=== PATIENT | male | born 1945 | race Caucasian/White ===

== ENCOUNTER 2017-08-27 15:35 | Inpatient (IN) | payer MEDICARE, OTHER ==
[~2017-08-27] VITALS: Ht 177.8 cm; Wt 61.7 kg
[~2017-08-27 15:35] MED LIST: AMLODIPINE BESYL5 MG ORAL; ASPIR 8181 MG ORAL; BACITRACIN1 EACH TOPIC; BUDESONIDE0.5 GM MC; COLACE100 MG ORAL; DEPAKOTE250 MG PO; DETROL2 MG ORAL; DUONEB 0.5-3(2.53 ML HHN; FINASTERIDE5 MG ORAL; FLOMAX0.4 MG ORAL; GENTAK5 ML BOTH EYES; KLONOPIN1 MG ORAL; MIRALAX17 G2 ORAL; OMEPRAZOLE20 M3 ORAL; OMEPRAZOLE40 M1 ORAL; PROTONIX40 MG ORAL; RISPERDAL1 MG PO; RISPERDAL2 MG ORAL; TAMSULOSIN HCL0.4 MG ORAL; TYLENOL WITH C1 EAC2 ORAL; ZOLPIDEM TARTRAT5 MG ORAL; ZYPREXA10 MG ORAL
[2017-08-27 15:40] VITALS: BP 157/71
[2017-08-27] MEDS ORDERED: VENTOLIN HFA18 GM INH ×2 (15:42→18:37)
[2017-08-27] MEDS ORDERED: KLONOPIN1 MG ORAL ×2 (15:42→18:37)
[2017-08-27] MEDS ORDERED: NEXIUM40 M2 ORAL (15:47)
[2017-08-27] MEDS ORDERED: BENZTROPINE ME0.5 MG PO ×2 (15:47→18:48)
[2017-08-27] MEDS ORDERED: ATROVENT HFA12.9 GM IH ×2 (15:47→18:48)
[2017-08-27] MEDS ORDERED: TEMAZEPAM30 MG ORAL (15:47)
[2017-08-27] MEDS ORDERED: LOXAPINE50 MG PO ×2 (15:47→18:48)
[2017-08-27] MEDS ORDERED: QUETIAPINE FUM400 MG ORAL (15:47)
[2017-08-27] MEDS ORDERED: ZETIA10 MG ORAL ×2 (15:50→18:43)
[2017-08-27] MEDS ORDERED: CHLORPROMAZINE25 MG PO ×2 (15:50→18:43)
[2017-08-27] MEDS ORDERED: AMLODIPINE BESYL5 MG ORAL (15:50)
[2017-08-27] MEDS ORDERED: Albuterol ud Inhalation HHN ONE (16:00)
[2017-08-27] MEDS ORDERED: Ipratropium 0.02% Inh Soln 2.5ml UD HHN ONE (16:00)
[2017-08-27] MEDS ORDERED: Azithromycin 500 MG in NS 275 ML IV ONE (16:00)
[2017-08-27] MEDS ORDERED: Solu-MEDROL 125mg Inj IVP ONE (16:00)
--- NOTE | 2017-08-27 16:11 | Emergency Room Report ---
History of Present Illness General Chief Complaint: Generalized Weakness Source: Patient, Medical Record, PMD Present Illness HPI 72-year-old male presents from nursing facility with weakness for one week. Patient feels like low energy. Denies any focal upper or lower extremity reduced strength. Denies chest pain, shortness of breath, abdominal pain. Has known history of "bad COPD" per primary care doctor. Patient states she is not on oxygen at facility. Denies fevers, chills. States he always has a cough, always smoking. Per PMD has history of cancer. Frequent urinary tract infections. Allergies: Coded Allergies: FISH LIVER OIL (Verified Allergy, Mild, 09/04/08) Patient History Past Medical History: other - see HPI Past Surgical History: none Social History: Reports: smoking Immunizations: UTD Reviewed Nursing Documentation: PMH: Agreed; PSxH: Agreed Nursing Documentation-PMH Hx Cardiac Problems: No Hx COPD: Yes Hx Cancer: Yes Hx Gastrointestinal Problems: No Hx Neurological Problems: No Review of Systems All Other Systems: negative except mentioned in HPI Physical Exam Vital Signs Date Time Temp Pulse Resp B/P (MAP) Pulse Ox O2 Delivery O2 Flow Rate FiO2 08/27/17 15:32 97.8 82 18 110/82 90 Nasal Cannula 2.0 97.9 Sp02 EP Interpretation: reviewed, normal General Appearance: normal inspection, well appearing, no apparent distress, alert, GCS 15, non-toxic Head: normocephalic, atraumatic Eyes: bilateral eye PERRL, bilateral eye EOMI ENT: normal ENT inspection, hearing grossly normal, normal pharynx, no angioedema, normal voice, TMs + canals normal, uvula midline, moist mucus membranes Neck: normal inspection, full range of motion, supple, thyroid normal, no meningismus, no bony tend Respiratory: normal inspection, normal breath sounds, no rhonchi, no respiratory distress, no retraction, no accessory muscle use, no wheezing, speaking full sentences, wheezing, expiration, inspiration Cardiovascular #1: regular rate, rhythm, no edema, no JVD, normal capillary refill Gastrointestinal: normal inspection, normal bowel sounds, non tender, soft, no mass, no peritonitis, non-distended, no guarding, no hernia, no pulsatile mass Genitourinary: no CVA tenderness Musculoskeletal: normal inspection, back normal, normal range of motion, no calf tenderness, pelvis stable, Tyrese's Sign negative Neurologic: normal inspection, alert, oriented x3, responsive, cognos architect III-XII nml as tested, motor strength/tone normal, cerebellar normal, normal gait, speech normal Psychiatric: normal inspection, judgement/insight normal, mood/affect normal, no suicidal/homicidal ideation, no delusions Skin: normal inspection, normal color, no rash Lymphatic: normal inspection, no adenopathy Medical Decision Making Diagnostic Impression: Primary Impression: Episode of generalized weakness Additional Impression: COPD exacerbation ER Course Vital signs stable, afebrile On exam patient having COPD exacerbation Was given nebs, steroids, empiric azithromycin for COPD exacerbation EKG shows sinus rhythm with PVCs however no metabolic abnormalities No leukocytosis to suggest patient also having pneumonia Feels better after treatment for COPD exacerbation Endorsed to Dr Epstein for admit at 550pm Med/surg bed EKG Diagnostic Results Rate: normal Rhythm: NSR ST Segments: no acute changes Other Impression Multiple PVCs Rhythm Strip Diag. Results EP Interpretation: yes Rate: 70 Rhythm: NSR, no PVC's, no ectopy Chest X-Ray Diagnostic Results Chest X-Ray Diagnostic Results : Chest X-Ray Ordered: Yes # of Views/Limited/Complete: 1 View Indication: Shortness of Breath EP Interpretation: Yes Interpretation: no consolidation, no effusion, no pneumothorax, no acute cardiopulmonary disease Impression: No acute disease Last Vital Signs Date Time Temp Pulse Resp B/P (MAP) Pulse Ox O2 Delivery O2 Flow Rate FiO2 08/27/17 16:05 71 20 96 Nasal Cannula 4.0 08/27/17 15:32 97.8 110/82 97.9 Status: improved Disposition: ADMITTED INPATIENT Condition: Serious ALLI NUR M.D. Aug 27, 2017 16:11
[2017-08-27 17:01] LABS: BASOPHILS % (AUTO) 3.1 % (0.0-2.0); EOSINOPHILS % (AUTO) 9.4 % (0.0-3.0); HEMATOCRIT 38.6 % (42.0-52.0); LYMPHOCYTES % (AUTO) 25.5 % (20.0-45.0); MEAN CORPUSCULAR VOLUME 89 FL (80-99); MONOCYTES % (AUTO) 7.7 % (1.0-10.0); NEUTROPHILS % (AUTO) 54.3 % (45.0-75.0); PLATELET COUNT 401 K/UL (150-450); RED BLOOD COUNT 4.35 M/UL (4.70-6.10); RED CELL DISTRIBUTION WIDTH 13.6 % (11.6-14.8); WHITE BLOOD COUNT 8.2 K/UL (4.8-10.8)
--- NOTE | 2017-08-27 17:08 | Diagnostic Imaging Report ---
Indication: Shortness of breath Technique: One view of the chest Comparison: 01/15/2015 Findings: Inspiration is suboptimal. There is elevation of the right hemidiaphragm and right basilar atelectasis. There is equivocal mild interstitial congestion. The pleural spaces are grossly clear. Heart size is normal. 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 Right basilar atelectasis Equivocal mild interstitial congestive changes-correlate with clinical findings
[2017-08-27 17:12] LABS: ANION GAP 6 mmol/L (5-15); BLOOD UREA NITROGEN 18 mg/dL (7-18); CALCIUM 9.1 MG/DL (8.5-10.1); CARBON DIOXIDE 30 MMOL/L (21-32); CHLORIDE 108 MMOL/L (98-107); CREATININE 1.1 MG/DL (0.55-1.30); POTASSIUM 4.3 MMOL/L (3.5-5.1); SODIUM 144 MMOL/L (136-145)
[2017-08-27 17:26] LABS: ALANINE AMINOTRANSFERASE 20 U/L (12-78); ALBUMIN 2.9 G/DL (3.4-5.0); ALBUMIN/GLOBULIN RATIO 0.9 (1.0-2.7); ALKALINE PHOSPHATASE 74 U/L (46-116); ASPARTATE AMINO TRANSFERASE 11 U/L (15-37); BILIRUBIN,TOTAL 0.3 MG/DL (0.2-1.0); CKMB 1.7 NG/ML (0.0-3.6); CREATINE KINASE 64 U/L (26-308)
[2017-08-27] MEDS ORDERED: TEMAZEPAM15 MG ORAL (18:39)
[2017-08-27] MEDS ORDERED: SEROQUEL XR300 MG ORAL (18:39)
[2017-08-27] MEDS ORDERED: NEXIUM40 MG ORAL (18:43)
[2017-08-27 19:16] LABS: APPEARANCE,URINE CLEAR; BILIRUBIN, URINE NEGATIVE (NEGATIVE); GLUCOSE, URINE (UA) NEGATIVE (NEGATIVE); KETONES,URINE NEGATIVE (NEGATIVE); LEUKOCYTE ESTERASE ,URINE 1+ (NEGATIVE); NITRITE,URINE NEGATIVE (NEGATIVE); PH,URINE 6.5 (4.5-8.0); PROTEIN,URINE NEGATIVE (NEGATIVE); UROBILINOGEN,URINE NORMAL MG/DL (0.0-1.0)
[2017-08-27 19:31] LABS: COLOR,URINE YELLOW
[2017-08-27 19:43] VITALS: BP 125/68
[2017-08-27 20:20] VITALS: BP 122/75
[2017-08-27] MEDS: Albuterol ud Inhalation HHN PRN (23:27)
[2017-08-27] MEDS: Ipratropium 0.02% Inh Soln 2.5ml UD HHN PRN (23:27)
[2017-08-28] VITALS: BP 135/75
[2017-08-28] MEDS: Albuterol ud Inhalation HHN PRN (03:45)
[2017-08-28] MEDS: Ipratropium 0.02% Inh Soln 2.5ml UD HHN PRN (03:45)
[2017-08-28 04:00] VITALS: BP 145/82
--- NOTE | 2017-08-28 04:30 | History and Physical Report ---
DATE OF ADMISSION: 08/27/2017 HISTORY OF PRESENT ILLNESS: The patient is admitted for COPD exacerbation as well as lower extremity weakness. The patient does have wheezing, shortness of breath, and cough. The patient is a heavy smoker. Denies fever or chills. Denies orthopnea. PAST MEDICAL HISTORY: Chronic obstructive pulmonary disease, hypertension, paranoid schizophrenia, anxiety, gastroesophageal reflux disease, constipation, renal and bladder cancer, BPH, paranoid schizophrenia, history of bradycardia, and hyperlipidemia. MEDICATIONS: Klonopin, Cogentin, Norvasc, Colace, Nexium, Zetia, finasteride, loxapine, and Flomax. ALLERGIES: Fish liver oil. SOCIAL HISTORY: The patient is a smoker. He lives in assisted living. Denies history of alcohol or illegal drugs. FAMILY HISTORY: Noncontributory. REVIEW OF SYSTEMS: HEENT: Denies headaches. RESPIRATORY: Reports shortness of breath and wheezing and coughing. CARDIOVASCULAR: Denies chest pain. Denies orthopnea. GASTROINTESTINAL: Denies nausea, vomiting, or diarrhea. EXTREMITIES: Does have some back pain, which is chronic. 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 He is very weak. PHYSICAL EXAMINATION: VITAL SIGNS: Temperature is 97.7, pulse 79, and blood pressure 124/68. HEENT: PERRLA. NECK: Supple. No deformity. CHEST: Bibasilar wheezing. CARDIOVASCULAR: Regular rate and rhythm. GASTROINTESTINAL: Soft, nontender, and nondistended. No organomegaly. Positive bowel sounds. EXTREMITIES: No edema. Reflexes are equal on both sides. He does have some weight loss. Moves all four extremities. DIAGNOSTIC DATA: Chest x-ray shows findings of compounds of chronic obstructive pulmonary disease. LABORATORY DATA: WBC of 8.2, hemoglobin 13, and platelets of 401,000. Sodium 144, potassium 4.3, chloride 108, BUN of 18, and creatinine of 1.1. Glucose of 108. ASSESSMENT: Chronic obstructive pulmonary disease exacerbation, lower extremity weakness, and bladder and renal cancer. PLAN: I have asked Dr. Lemons, Dr. Birmingham, and Dr. Matt Latham to see the patient for the renal and bladder cancer as well as for COPD exacerbation and management. Saida Cee M.D. DR: ANAYA JOB#: [id number] CC:
[2017-08-28 08:00] VITALS: BP 146/80
[2017-08-28 08:06] LABS: BASOPHILS % (AUTO) 0.6 % (0.0-2.0); EOSINOPHILS % (AUTO) 0.1 % (0.0-3.0); HEMATOCRIT 41.3 % (42.0-52.0); HEMOGLOBIN 13.8 G/DL (14.2-18.0); LYMPHOCYTES % (AUTO) 10.9 % (20.0-45.0); MEAN CORPUSCULAR VOLUME 90 FL (80-99); MONOCYTES % (AUTO) 4.6 % (1.0-10.0); NEUTROPHILS % (AUTO) 83.8 % (45.0-75.0); PLATELET COUNT 468 K/UL (150-450); RED BLOOD COUNT 4.59 M/UL (4.70-6.10); RED CELL DISTRIBUTION WIDTH 13.3 % (11.6-14.8); WHITE BLOOD COUNT 10.1 K/UL (4.8-10.8)
[2017-08-28 08:37] LABS: ALANINE AMINOTRANSFERASE 27 U/L (12-78); ALBUMIN 3.2 G/DL (3.4-5.0); ALBUMIN/GLOBULIN RATIO 0.8 (1.0-2.7); ALKALINE PHOSPHATASE 83 U/L (46-116); ANION GAP 10 mmol/L (5-15); ASPARTATE AMINO TRANSFERASE 12 U/L (15-37); BILIRUBIN,TOTAL 0.2 MG/DL (0.2-1.0); BLOOD UREA NITROGEN 22 mg/dL (7-18); CALCIUM 9.3 MG/DL (8.5-10.1); CARBON DIOXIDE 27 MMOL/L (21-32); CHLORIDE 105 MMOL/L (98-107); POTASSIUM 4.3 MMOL/L (3.5-5.1); SODIUM 142 MMOL/L (136-145)
[2017-08-28] MEDS: Tamsulosin 0.4mg cap ORAL SCH (08:45)
[2017-08-28] MEDS: Benztropine 1mg tab ORAL SCH ×2 (08:46→18:09)
[2017-08-28] MEDS: Docusate 100mg cap ORAL SCH ×2 (08:46→18:09)
[2017-08-28] MEDS ORDERED: Isovue-300 100ml vial INJ PRN (09:00)
[2017-08-28] MEDS ORDERED: LOXAPINE 25 MG ORAL SCH (09:00)
[2017-08-28] MEDS: LOXAPINE 5 MG ORAL SCH ×2 (09:55→18:09)
[2017-08-28 12:00] VITALS: BP 112/64
--- NOTE | 2017-08-28 12:00 | General Progress Note ---
Assessment/Plan Problem List: (1) BPH (benign prostatic hyperplasia) ICD Codes: N40.0 - Enlarged prostate without lower urinary tract symptoms SNOMED: 103121671, 625085675 (2) Bladder tumor ICD Codes: D49.4 - Neoplasm of unspecified behavior of bladder SNOMED: 829859126 (3) COPD exacerbation ICD Codes: J44.1 - Chronic obstructive pulmonary disease with (acute) exacerbation SNOMED: 071202994 (4) Episode of generalized weakness ICD Codes: R53.1 - Weakness SNOMED: 74302070 Status: progressing Assessment/Plan afebrile copd exacerbation no wheezing weak consulted dr ya for copd exacerbation has cough psychiatric patient Subjective ROS Limited/Unobtainable: Yes Allergies: Coded Allergies: FISH LIVER OIL (Verified Allergy, Mild, 09/04/08) Objective Last 24 Hour Vital Signs Date Time Temp Pulse Resp B/P (MAP) Pulse Ox O2 Delivery O2 Flow Rate FiO2 08/28/17 09:00 Room Air 08/28/17 08:46 86 146/80 08/28/17 08:00 98.0 86 18 146/80 (102) 92 98.0 08/28/17 04:00 97.7 97 18 145/82 (103) 97 97.7 08/28/17 03:59 79 20 100 Nasal Cannula 2.0 28 08/28/17 03:45 71 20 94 Nasal Cannula 4.0 36 08/28/17 00:00 97.5 87 18 135/75 (95) 91 97.5 08/27/17 23:28 83 22 100 Nasal Cannula 2.0 28 08/27/17 23:20 78 22 98 Nasal Cannula 4.0 36 08/27/17 21:14 Nasal Cannula 2.0 08/27/17 20:20 97.5 76 22 122/75 (91) 93 97.5 08/27/17 19:43 36.52051 79 16 125/68 99 Nasal Cannula 2.0 207.9 08/27/17 19:43 97.7 79 16 125/68 99 Nasal Cannula 2.0 97.7 08/27/17 16:20 84 26 96 Room Air 08/27/17 16:05 71 20 96 Nasal Cannula 4.0 08/27/17 16:04 71 20 Nasal Cannula 4.0 08/27/17 15:40 97.7 80 16 157/71 99 Nasal Cannula 2.0 97.7 08/27/17 15:32 97.8 82 18 110/82 90 Nasal Cannula 2.0 97.9 Intake and Output 08/27/17 08/28/17 19:00 07:00 Intake Total 675 ml 800 ml Output Total 250 ml Balance 425 ml 800 ml Intake Oral 400 ml 800 ml IV Total 275 ml Output Urine Total 250 ml # Voids 5 # Bowel Movements 1 Laboratory Tests 08/27/17 16:15: White Blood Count 8.2, Red Blood Count 4.35L, Hemoglobin 13.0L, Hematocrit 38.6L , Mean Corpuscular Volume 89, Mean Corpuscular Hemoglobin 29.8, Mean Corpuscular Hemoglobin Concent 33.6, Red Cell Distribution Width 13.6, Platelet Count 401, Mean Platelet Volume 6.4L, Neutrophils (%) (Auto) 54.3, Lymphocytes ( %) (Auto) 25.5, Monocytes (%) (Auto) 7.7, Eosinophils (%) (Auto) 9.4H, Basophils (%) (Auto) 3.1H, Sodium Level 144, Potassium Level 4.3, Chloride Level 108H, Carbon Dioxide Level 30, Anion Gap 6, Blood Urea Nitrogen 18, Creatinine 1.1, Estimat Glomerular Filtration Rate , Glucose Level 108H, Calcium Level 9.1, Total Bilirubin 0.3, Aspartate Amino Transf (AST/SGOT) 11L, Alanine Aminotransferase (ALT/SGPT) 20, Alkaline Phosphatase 74, Total Creatine Kinase 64, Creatine Kinase MB 1.7, Creatine Kinase MB Relative Index 2.6, Troponin I 0.000, Pro-B-Type Natriuretic Peptide 46, Total Protein 6.3L, Albumin 2.9L, Globulin 3.4, Albumin/Globulin Ratio 0.9L 08/27/17 18:50: Urine Color Yellow, Urine Appearance Clear, Urine pH 6.5, Urine Specific [place] 1.010, Urine Protein Negative, Urine Glucose (UA) Negative, Urine Ketones Negative, Urine Occult Blood Negative, Urine Nitrite Negative, Urine Bilirubin Negative, Urine Urobilinogen Normal, Urine Leukocyte Esterase 1+H, Urine RBC 0-2H, Urine WBC 2-4, Urine Squamous Epithelial Cells None, Urine Bacteria Few 08/28/17 06:40: White Blood Count 10.1, Red Blood Count 4.59L, Hemoglobin 13.8L, Hematocrit 41.3L, Mean Corpuscular Volume 90, Mean Corpuscular Hemoglobin 30.1, Mean Corpuscular Hemoglobin Concent 33.4, Red Cell Distribution Width 13.3, Platelet Count 468H, Mean Platelet Volume 6.3L, Neutrophils (%) (Auto) 83.8H, Lymphocytes (%) (Auto) 10.9L, Monocytes (%) (Auto) 4.6, Eosinophils (%) (Auto) 0.1, Basophils (%) (Auto) 0.6, Sodium Level 142, Potassium Level 4.3, Chloride Level 105, Carbon Dioxide Level 27, Anion Gap 10, Blood Urea Nitrogen 22H, Creatinine 1.0, Estimat Glomerular Filtration Rate , Glucose Level 209#H, Calcium Level 9.3, Total Bilirubin 0.2, Aspartate Amino Transf (AST/SGOT) 12L, Alanine Aminotransferase (ALT/SGPT) 27, Alkaline Phosphatase 83, Total Protein 7.0, Albumin 3.2L, Globulin 3.8, Albumin/Globulin Ratio 0.8L, Reticulocyte Count 1.1, Carcinoembryonic Antigen [Pending], CA 15-3 Antigen [Pending], CA 19- 9 Antigen [Pending], Prostate Specific Antigen 5.12H Height (Feet): 5 Height (Inches): 10.00 Weight (Pounds): 160 Neck: supple Cardiovascular: normal rate Respiratory/Chest: lungs clear Saida Cee MD Aug 28, 2017 12:00
--- NOTE | 2017-08-28 15:41 | Diagnostic Imaging Report ---
Indication: Abdominal pain Technique: Continuous helical transaxial imaging of the abdomen and pelvis was obtained from the lung bases to the pubic symphysis during intravenous contrast administration. Coronal 2-D reformats were also obtained. Study obtained in a Siemens sensation [address] Automatic Exposure Control was utilized. Total Dose length Product (DLP): A [address] Dose Index Volume (CTDIvol): 0.15, 14.56, 9.57 mGy Comparison: None Findings: Mild reticular densities are demonstrated at the right lung base likely scarring. Coronary calcic lesions are present. There is mild thickening of the distal wall the esophagus. Gallstone present. Gallbladder is slightly contracted and there is prominence of the wall the gallbladder. The stomach is nondistended. The appendix is retrocecal and appears normal. Extensive diverticula noted in the sigmoid and descending colon. No definite diverticulitis appreciated. No adrenal mass identified. Pancreas is unremarkable. There are bilateral renal cysts. In the left kidney there is a partially enhancing mass measuring 2.5 x 2.8 cm. This may be a solid tumor and requires further evaluation. There is a tiny punctate nonobstructive stone in the left kidney noted. There are bilateral renal cysts. The spleen is unremarkable. No free fluid, free air or bowel obstruction identified. Bilateral inguinal hernias containing fat demonstrated. Prostate hypertrophy measuring 6.4 x 6.2 x 7.0 cm demonstrated. Thickening of the wall the urinary bladder noted. There is narrowing of intervertebral discs and accompanying endplate osteophyte formation. Hypertrophied facet joints also demonstrated.. IMPRESSION: Heterogeneous partially enhancing 2.6 cm mass in the left kidney. Further evaluation with dynamic contrast-enhanced CT or MR is recommended. This should include noncontrast images of the kidney and multiple phases of enhancement. (Note: Recommend waiting at least 24 hours after clearance of currently administered IV contrast before reinjection). Finding is probably incidental and workup suggested on a nonemergent basis. Gallstone with wall thickening. Consider cholecystitis. Slight thickening of the wall the distal esophagus. Consider EGD. Diverticulosis of the colon. Prostate hypertrophy. Thickening of the bladder wall may be associated with this. Atherosclerotic vascular disease Normal appendix Bilateral inguinal hernias containing fat. Right basilar scarring versus atelectasis Bilateral renal cysts. Tiny nonobstructive stone in the left kidney. [place] [facility] [place] [employer] and the scans are performed using dose optimization techniques as appropriate to a performed exam including Automatic Exposure control.
[2017-08-28 16:00] VITALS: BP 101/63
--- NOTE | 2017-08-28 16:40 | Cardiology Report ---
APPROVED REPORT EKG Measurement Heart [id number] Sinus rhythm with frequent premature ventricular complexes Otherwise normal ECG
[2017-08-28 20:24] VITALS: BP 125/71
--- NOTE | 2017-08-28 20:30 | Consultation ---
DATE OF CONSULTATION: 08/28/2017 HEMATOLOGY/ONCOLOGY CONSULTATION CONSULTING PHYSICIAN: Johnathan Lemons M.D. REQUESTING PHYSICIAN: Saida Cee M.D. REASON FOR CONSULTATION: Evaluation of anemia and thrombocytosis. IDENTIFYING DATA: Dear Dr. Cee, The patient is a pleasant 72-year-old male with past medical history, which is significant for smoking and lives in assisted living, has GERD, COPD, hypertension, schizophrenia, BPH, renal and bladder cancer, history of bradycardia, and hyperlipidemia. Hematology/Oncology Service was consulted for history of bladder cancer as well as renal carcinoma. The patient is a heavy smoker. PAST MEDICAL HISTORY: COPD, hypertension, anxiety, GERD, constipation, renal and bladder cancer, BPH, paranoid schizophrenia, history of bradycardia, and hyperlipidemia. MEDICATIONS: Norvasc, Cogentin, Klonopin, Nexium, Zetia, loxapine, Flomax, and finasteride. ALLERGIES: Fish liver oil. SOCIAL HISTORY: Ex-smoker. Lives in assisted living. No illicit drug use. No alcohol. FAMILY HISTORY: Noncontributory. REVIEW OF SYSTEMS: CONSTITUTIONAL: No fevers, chills, or night sweats. SKIN: No rashes, bumps, or itching. HEENT: No headache, hearing or visual changes. BREASTS: No lumps, pain, or discharge. PULMONARY: No cough, sputum, or shortness of breath. GASTROINTESTINAL: No nausea, vomiting, or diarrhea. GENITOURINARY: No dysuria, frequency, or urgency. MUSCULOSKELETAL: No joint swelling, muscle pain, or trauma. PHYSICAL EXAMINATION: VITAL SIGNS: Reviewed. GENERAL: No acute distress. LUNGS: Decreased breath sounds. CARDIOVASCULAR: Regular rate. No S3 or S4. ABDOMEN: Soft, nontender, and nondistended. EXTREMITIES: A 1+ edema. LABORATORY AND DIAGNOSTIC DATA: Hemoglobin of 12, otherwise reviewed. ASSESSMENT AND RECOMMENDATION: 1. Bladder mass history, consistent with urothelial cancer. 2. Renal mass, potentially consistent with renal carcinoma. We will need to obtain further imaging. 3. Elevated PSA in the past. Most recent PSA was 10. We will need to resend along with other tumor markers. 4. Anemia due to underlying chronic disease. 5. Thrombocytosis, likely secondary to reactive process. 6. Schizophrenia. Monitor with psychiatric team. I appreciate the consultation. Johnathan Lemons M.D. DR: NUBIA JOB#: [id number] CC:
[2017-08-29 04:00] VITALS: BP 96/64
[2017-08-29 08:00] VITALS: BP 116/68
[2017-08-29] MEDS: Docusate 100mg cap ORAL SCH ×2 (08:22→18:35)
[2017-08-29] MEDS: Benztropine 1mg tab ORAL SCH ×2 (08:23→18:34)
[2017-08-29] MEDS: Tamsulosin 0.4mg cap ORAL SCH (08:24)
[2017-08-29] MEDS: LOXAPINE 5 MG ORAL SCH ×2 (08:26→18:36)
--- NOTE | 2017-08-29 09:04 | General Progress Note ---
Assessment/Plan Status: unchanged Assessment/Plan 1. Bladder mass history, consistent with urothelial cancer. On imaging shows a Heterogeneous partially enhancing 2.6 cm mass in the left kidney. Further evaluation with dynamic contrast-enhanced CT or MR is recommended. This should include noncontrast images of the kidney and multiple phases of enhancement. ( Note: Recommend waiting at least 24 hours after clearance of currently administered IV contrast before reinjection). Finding is probably incidental and workup suggested on a nonemergent basis. --> urology eval further appreciated --> tumor markers reviewed and are negative 2. Renal mass, potentially consistent with renal carcinoma. --> Abd/pelvis CT: Heterogeneous partially enhancing 2.6 cm mass in the left kidney. Diverticulosis of the colon. Prostate hypertrophy. Bilateral renal cysts. 3. Elevated PSA in the past. Most recent PSA was 10. --> psa in the 5-10 range, no need for further imaging 4. Anemia due to underlying chronic disease. --> Continue to closely monitor. --> Anemia w/u has been reviewed, will trend daily. --> Hgb goal >7 5. Thrombocytosis, likely secondary to reactive process. --> Closely monitor plt count 6. Schizophrenia. Monitor with psychiatric team. The time the note was entered does not necessarily correspond to the time the patient was seen. Subjective Date patient seen: Aug 29, 2017 ROS Limited/Unobtainable: Yes Hematologic/Lymphatic: Reports: anemia Allergies: Coded Allergies: FISH LIVER OIL (Verified Allergy, Mild, 09/04/08) All Systems: reviewed and negative except above Subjective Pt awake and alert. No acute events. No c/o pain or discomfort. Objective Last 24 Hour Vital Signs Date Time Temp Pulse Resp B/P (MAP) Pulse Ox O2 Delivery O2 Flow Rate FiO2 08/29/17 08:44 Room Air 08/29/17 08:24 77 121/74 08/29/17 08:00 97.6 63 18 116/68 (84) 94 97.6 08/29/17 07:55 72 18 Room Air 21 08/29/17 04:00 97.5 65 19 96/64 (75) 92 97.5 08/28/17 21:00 Room Air 08/28/17 20:24 97.3 65 16 125/71 (89) 93 97.3 08/28/17 19:51 68 18 Room Air 21 08/28/17 16:00 97.8 88 19 101/63 (76) 97.8 08/28/17 12:00 98.0 66 18 112/64 (80) 91 98.0 08/28/17 09:00 Room Air Intake and Output 08/28/17 08/29/17 19:00 07:00 Intake Total 800 ml 360 ml Output Total 1401 ml 1300 ml Balance -601 ml -940 ml Intake Oral 800 ml 360 ml Output Urine Total 1400 ml 1300 ml Stool Total 1 ml # Voids 3 Height (Feet): 5 Height (Inches): 10.00 Weight (Pounds): 136 General Appearance: no apparent distress, alert EENT: PERRL/EOMI Neck: normal alignment Cardiovascular: normal peripheral pulses Respiratory/Chest: normal breath sounds, no respiratory distress Abdomen: normal bowel sounds Johnathan Lemons MD Aug 29, 2017 09:04
[2017-08-29 12:00] VITALS: BP 123/87
[2017-08-29 16:00] VITALS: BP 120/77
[2017-08-29 20:00] VITALS: BP 115/71
--- NOTE | 2017-08-29 21:35 | General Progress Note ---
Assessment/Plan Problem List: (1) BPH (benign prostatic hyperplasia) ICD Codes: N40.0 - Enlarged prostate without lower urinary tract symptoms SNOMED: 494402695, 886607483 (2) Bladder tumor ICD Codes: D49.4 - Neoplasm of unspecified behavior of bladder SNOMED: 932060529 (3) COPD exacerbation ICD Codes: J44.1 - Chronic obstructive pulmonary disease with (acute) exacerbation SNOMED: 701872707 (4) Episode of generalized weakness ICD Codes: R53.1 - Weakness SNOMED: 86155204 Status: progressing Assessment/Plan still weak at times wheezes reviewed chart and meds and labs consulted dr ya for copd exacerbation has cough Subjective Allergies: Coded Allergies: FISH LIVER OIL (Verified Allergy, Mild, 09/04/08) Subjective sob and cough and weak Objective Last 24 Hour Vital Signs Date Time Temp Pulse Resp B/P (MAP) Pulse Ox O2 Delivery O2 Flow Rate FiO2 08/29/17 20:00 77 20 Room Air 21 08/29/17 16:00 98.8 80 19 120/77 (91) 96 98.8 08/29/17 12:00 98.1 82 19 123/87 (99) 95 98.1 08/29/17 08:44 Room Air 08/29/17 08:24 77 121/74 08/29/17 08:00 97.6 63 18 116/68 (84) 94 97.6 08/29/17 07:55 72 18 Room Air 21 08/29/17 04:00 97.5 65 19 96/64 (75) 92 97.5 Intake and Output 08/28/17 08/29/17 19:00 07:00 Intake Total 800 ml 360 ml Output Total 1401 ml 1300 ml Balance -601 ml -940 ml Intake Oral 800 ml 360 ml Output Urine Total 1400 ml 1300 ml Stool Total 1 ml # Voids 3 Height (Feet): 5 Height (Inches): 10.00 Weight (Pounds): 136 Respiratory/Chest: lungs clear Abdomen: soft Saida Cee MD Aug 29, 2017 21:35
[2017-08-30] VITALS: BP 118/63
[2017-08-30 04:00] VITALS: BP 120/60
[2017-08-30 08:00] VITALS: BP 137/83
[2017-08-30] MEDS: LOXAPINE 25 MG ORAL SCH ×2 (09:19→17:33)
[2017-08-30] MEDS: Docusate 100mg cap ORAL SCH ×2 (09:19→16:56)
[2017-08-30] MEDS: Tamsulosin 0.4mg cap ORAL SCH (09:20)
[2017-08-30] MEDS: Benztropine 1mg tab ORAL SCH ×2 (09:20→16:56)
--- NOTE | 2017-08-30 11:36 | General Progress Note ---
Assessment/Plan Problem List: (1) BPH (benign prostatic hyperplasia) ICD Codes: N40.0 - Enlarged prostate without lower urinary tract symptoms SNOMED: 001906505, 522158741 (2) Bladder tumor ICD Codes: D49.4 - Neoplasm of unspecified behavior of bladder SNOMED: 180386388 (3) COPD exacerbation ICD Codes: J44.1 - Chronic obstructive pulmonary disease with (acute) exacerbation SNOMED: 895205795 (4) Episode of generalized weakness ICD Codes: R53.1 - Weakness SNOMED: 69667795 Status: progressing Assessment/Plan wheezing off and on copd exacerbation is improving has cough renal and bladder mass.poor candidate for chemo and surgery has mod to severe copd paranoid schizophrenia Subjective ROS Limited/Unobtainable: Yes Constitutional: Reports: no symptoms HEENT: Reports: no symptoms Allergies: Coded Allergies: FISH LIVER OIL (Verified Allergy, Mild, 09/04/08) Subjective sob and cough and weak Objective Last 24 Hour Vital Signs Date Time Temp Pulse Resp B/P (MAP) Pulse Ox O2 Delivery O2 Flow Rate FiO2 08/30/17 09:19 70 137/83 08/30/17 09:00 Room Air 08/30/17 08:26 84 20 Room Air 21 08/30/17 08:00 98.2 70 18 137/83 (101) 95 98.2 08/30/17 04:00 97.9 72 18 120/60 (80) 95 97.9 08/30/17 00:00 97.6 67 18 118/63 (81) 94 97.6 08/29/17 21:00 Room Air 08/29/17 20:00 77 20 Room Air 21 08/29/17 20:00 97.3 79 18 115/71 (86) 96 97.3 08/29/17 16:00 98.8 80 19 120/77 (91) 96 98.8 08/29/17 12:00 98.1 82 19 123/87 (99) 95 98.1 Intake and Output 08/29/17 08/30/17 19:00 07:00 Intake Total 920 ml 780 ml Balance 920 ml 780 ml Intake Oral 920 ml 780 ml # Voids 4 5 Height (Feet): 5 Height (Inches): 10.00 Weight (Pounds): 136 Neck: supple Cardiovascular: normal rate Respiratory/Chest: lungs clear Abdomen: soft Saida Cee MD Aug 30, 2017 11:36
[2017-08-30 12:00] VITALS: BP 126/90
--- NOTE | 2017-08-30 12:45 | Consultation ---
History of Present Illness General Date patient seen: Aug 30, 2017 Chief Complaint: Generalized Weakness Present Illness HPI 72-year-old male presents from nursing facility with weakness for one week. the pt has mmp and schizophrenia. the pt is stable he was seen on [facility]. the pt has some anxiety no si/hi Allergies: Coded Allergies: FISH LIVER OIL (Verified Allergy, Mild, 09/04/08) Medication History Scheduled Amlodipine Besylate* (Amlodipine Besylate*), 5 MG ORAL DAILY, (Reported) Benztropine Mesylate* (Cogentin*), 0.5 MG PO BID, (Reported) Clonazepam* (Klonopin*), 1 MG ORAL BID, (Reported) Docusate Sodium* (Colace*), 100 MG ORAL TWICE A DAY, (Reported) Esomeprazole Magnesium (Nexium), 40 MG ORAL DAILY, (Reported) Ezetimibe (Zetia*), 10 MG ORAL DAILY, (Reported) Finasteride (Finasteride), 5 MG ORAL DAILY, (Reported) Loxapine Succinate (Loxapine), 50 MG PO BID, (Reported) Quetiapine Fumarate (Seroquel Xr), 300 MG ORAL QHS, (Reported) Tamsulosin HCl (Flomax), 0.4 MG ORAL DAILY, (Reported) Temazepam (Temazepam*), 15 MG ORAL BEDTIME, (Reported) Scheduled PRN Albuterol Sulfate (Ventolin Hfa), 2 PUFFS INH Q4HR PRN for Shortness of Breath, (Reported) Ipratropium [place] (Atrovent Hfa), 2 PUFFS IH Q6HR PRN for Shortness of Breath, (Reported) Discontinued Medications Bacitracin (Bacitracin*), 1 PACKET TOPIC, (Reported) Discontinued Reason: Therapy completed Budesonide, Micronized (Budesonide), 0.5 GM MC EVERY 12 HOURS PRN for Shortness of Breath, (Reported) Discontinued Reason: Pt stopped taking med Divalproex Sodium* (Depakote*), 250 MG PO Q12HR, (Reported) Discontinued Reason: Pt stopped taking med Olanzapine* (Zyprexa*), 30 MG ORAL hs, (Reported) Discontinued Reason: Pt stopped taking med Pantoprazole* (Protonix*), 40 MG ORAL DAILY, (Reported) Discontinued Reason: Pt stopped taking med Polyethylene Glycol 3350* (Miralax*), 17 GM ORAL DAILY, (Reported) Discontinued Reason: Pt stopped taking med Zolpidem Tartrate* (Zolpidem Tartrate*), 5 MG ORAL BEDTIME PRN for Insomnia, ( Reported) Discontinued Reason: Pt stopped taking med Patient History Limited by: medical condition History Provided By: Patient, Medical Record, PMD Healthcare decision maker Resuscitation status Full Code Advanced Directive on File No Past Medical/Surgical History Past Medical/Surgical History: (1) Syncope (2) Sepsis (3) Altered mental status (4) r/o seizure event (5) Anemia (6) Leukocytosis (7) EEG abnormal (8) Bradycardia (9) Encephalopathy (10) Episode of generalized weakness (11) Bladder tumor (12) BPH (benign prostatic hyperplasia) (13) COPD exacerbation Review of Systems Psychiatric: Reports: prior hx, anxiety, depressed feelings, emotional problems Physical Exam General Appearance: no apparent distress, alert Neurologic: oriented x 3, responsive Last 24 Hour Vital Signs Date Time Temp Pulse Resp B/P (MAP) Pulse Ox O2 Delivery O2 Flow Rate FiO2 08/30/17 12:00 97.8 88 18 126/90 (102) 95 97.8 08/30/17 09:19 70 137/83 08/30/17 09:00 Room Air 08/30/17 08:26 84 20 Room Air 21 08/30/17 08:00 98.2 70 18 137/83 (101) 95 98.2 08/30/17 04:00 97.9 72 18 120/60 (80) 95 97.9 08/30/17 00:00 97.6 67 18 118/63 (81) 94 97.6 08/29/17 21:00 Room Air 08/29/17 20:00 77 20 Room Air 21 08/29/17 20:00 97.3 79 18 115/71 (86) 96 97.3 08/29/17 16:00 98.8 80 19 120/77 (91) 96 98.8 Intake and Output 08/29/17 08/30/17 19:00 07:00 Intake Total 920 ml 780 ml Balance 920 ml 780 ml Intake Oral 920 ml 780 ml # Voids 4 5 Height (Feet): 5 Height (Inches): 10.00 Weight (Pounds): 136 Medications Current Medications Medications (Trade) Dose Ordered Sig/Davey Route PRN Reason Start Time Stop Time Status Last Admin Dose Admin Albuterol Sulfate (Proventil) 2.5 mg Q4H PRN HHN Shortness of Breath 08/27/17 20:25 09/01/17 20:24 08/28/17 03:45 Amlodipine Besylate (Norvasc) 5 mg DAILY ORAL 08/28/17 09:00 09/27/17 08:59 08/30/17 09:19 Benztropine Mesylate (Cogentin) 0.5 mg BID ORAL 08/28/17 09:00 09/27/17 08:59 08/30/17 09:20 Clonazepam (KlonoPIN) 1 mg BID ORAL 08/28/17 09:00 09/04/17 08:59 08/30/17 09:19 Docusate Sodium (Colace) 100 mg TWICE A DAY ORAL 08/28/17 09:00 09/27/17 08:59 08/30/17 09:19 EZETIMIBE (Zetia) 10 mg DAILY ORAL 08/28/17 09:00 09/27/17 08:59 08/30/17 09:19 Finasteride (Proscar) 5 mg DAILY@1100 ORAL 08/28/17 11:00 09/27/17 10:59 08/30/17 11:47 Ipratropium [place] (Atrovent) 500 mcg Q4H PRN HHN Shortness of Breath 08/27/17 20:25 09/01/17 20:24 08/28/17 03:45 Loxapine Succinate (Loxitane) 50 mg BID ORAL 08/30/17 09:00 09/27/17 08:59 08/30/17 09:19 Pantoprazole (Protonix) 40 mg DAILY@0700 ORAL 08/28/17 07:00 09/27/17 06:59 08/30/17 06:20 Quetiapine Fumarate (SEROquel) 150 mg BID ORAL 08/28/17 09:00 09/27/17 08:59 08/30/17 09:19 Tamsulosin HCl (Flomax) 0.4 mg DAILY ORAL 08/28/17 09:00 09/27/17 08:59 08/30/17 09:20 Temazepam (Restoril) 15 mg BEDTIME ORAL 08/27/17 21:00 09/03/17 20:59 08/29/17 21:40 Assessment/Plan Assessment/Plan schizophrenia klonopin loxapine Yin Booth MD Aug 30, 2017 12:45
--- NOTE | 2017-08-30 16:30 | General Progress Note ---
Assessment/Plan Status: unchanged Assessment/Plan 1. Bladder mass history, consistent with urothelial cancer. On imaging shows a Heterogeneous partially enhancing 2.6 cm mass in the left kidney. Further evaluation with dynamic contrast-enhanced CT or MR is recommended. This should include noncontrast images of the kidney and multiple phases of enhancement. ( Note: Recommend waiting at least 24 hours after clearance of currently administered IV contrast before reinjection). Finding is probably incidental and workup suggested on a nonemergent basis. --> urology eval further appreciated --> tumor markers reviewed and are negative 2. Renal mass, potentially consistent with renal carcinoma. --> Abd/pelvis CT: Heterogeneous partially enhancing 2.6 cm mass in the left kidney. Diverticulosis of the colon. Prostate hypertrophy. Bilateral renal cysts. 3. Elevated PSA in the past. Most recent PSA was 10. --> psa in the 5-10 range, no need for further imaging 4. Anemia due to underlying chronic disease. --> Continue to closely monitor. --> Anemia w/u has been reviewed, will trend daily. --> Hgb goal >7 5. Thrombocytosis, likely secondary to reactive process. --> Closely monitor plt count 6. Schizophrenia. Monitor with psychiatric team. The time the note was entered does not necessarily correspond to the time the patient was seen. Subjective Date patient seen: Aug 30, 2017 ROS Limited/Unobtainable: Yes Hematologic/Lymphatic: Reports: anemia Allergies: Coded Allergies: FISH LIVER OIL (Verified Allergy, Mild, 09/04/08) All Systems: reviewed and negative except above Subjective Pt awake and alert. No acute events. No c/o pain or discomfort. Positive of VRE rectum. Objective Last 24 Hour Vital Signs Date Time Temp Pulse Resp B/P (MAP) Pulse Ox O2 Delivery O2 Flow Rate FiO2 08/30/17 12:00 97.8 88 18 126/90 (102) 95 97.8 08/30/17 09:19 70 137/83 08/30/17 09:00 Room Air 08/30/17 08:26 84 20 Room Air 21 08/30/17 08:00 98.2 70 18 137/83 (101) 95 98.2 08/30/17 04:00 97.9 72 18 120/60 (80) 95 97.9 08/30/17 00:00 97.6 67 18 118/63 (81) 94 97.6 08/29/17 21:00 Room Air 08/29/17 20:00 77 20 Room Air 21 08/29/17 20:00 97.3 79 18 115/71 (86) 96 97.3 Intake and Output 08/29/17 08/30/17 19:00 07:00 Intake Total 920 ml 780 ml Balance 920 ml 780 ml Intake Oral 920 ml 780 ml # Voids 4 5 Height (Feet): 5 Height (Inches): 10.00 Weight (Pounds): 136 General Appearance: no apparent distress, alert EENT: PERRL/EOMI Neck: non-tender, normal alignment Cardiovascular: normal peripheral pulses Respiratory/Chest: no respiratory distress Abdomen: soft, no mass Johnathan Lemons MD Aug 30, 2017 16:30
[2017-08-30 16:44] VITALS: BP 112/77
[2017-08-30 19:40] VITALS: BP 106/68
--- NOTE | 2017-08-30 22:00 | Consultation ---
DATE OF CONSULTATION: 08/30/2017 CONSULTING PHYSICIAN: Tyrone Chowdhury M.D. REFERRING PHYSICIAN: Johnathan Lemons M.D. REASON FOR CONSULTATION: Evaluation of renal mass. HISTORY OF PRESENT ILLNESS: This is a 72-year-old male. He is known to me from previous evaluations. The patient has a history of BPH. He has a history of bladder cancer. I did a cystoscopy with resection of bladder tumor in January of 2015 and this turned out to be a low-grade noninvasive tumor. At that time, he was also noted to have a 2.4 cm left renal mass and unfortunately, the patient has been lost to followup. He is now admitted back to the hospital because of chronic obstructive pulmonary disease exacerbation. Followup Urology evaluation is requested. Again, the patient does have a history of BPH. He has lower urinary tract symptoms. He has been on Flomax and finasteride. PAST MEDICAL HISTORY: Significant for above. Chronic obstructive pulmonary disease, hypertension, schizophrenia, gastroesophageal reflux disease, BPH, renal mass, and hyperlipidemia. PAST SURGICAL HISTORY: As above. CURRENT MEDICATIONS: Here in the hospital, the patient is on Loxitane, Proscar, Norvasc, Klonopin, Colace, Zetia, Flomax, Cogentin, Seroquel, Protonix, finasteride, Proventil and Atrovent. ALLERGIES: Fish and liver oil. FAMILY HISTORY: Noncontributory. SOCIAL HISTORY: He resides in a long-term. REVIEW OF SYSTEMS: As above. PHYSICAL EXAMINATION: GENERAL: An elderly male. VITAL SIGNS: Temperature is 97.8, blood pressure is 112/77, pulse 74, and respirations 18. HEENT: Normocephalic. NECK: Supple. ABDOMEN: Soft. EXTREMITIES: No clubbing or cyanosis. LABORATORY DATA: White count is 10.1, hemoglobin 13.8, and platelets of 468,000. BUN is 22, creatinine 1.2, and potassium 4.3. UA showed 1+ leukocyte esterase, otherwise essentially negative. Serum PSA 5.12. DIAGNOSTIC IMAGING STUDIES: The patient had a CT scan of the abdomen and pelvis. There was mention of heterogeneous partially enhancing 2.6 cm mass of the left kidney. There was also mention of prostatic hypertrophy, bilateral inguinal hernias, renal cysts, and a small stone in the left kidney. IMPRESSION: 1. History of bladder cancer. 2. Renal mass, rule out renal cell carcinoma. 3. Benign prostatic hypertrophy. 4. Lower urinary tract symptoms. 5. Mild pyuria. 6. Renal cyst. 7. Tiny renal calculus. 8. Inguinal hernia. 9. Mild elevation of serum PSA. PLAN AND DISCUSSION: Again, the patient does have a history of bladder cancer, which was resected in 2014 and at some point, he will need to have a surveillance cystoscopy to make sure he does not have any recurrence. He does have a left renal mass, which has been there for number of years. In fact, it appears that this has not grown significantly over the past 2 years. We can either continue to monitor this or at some point, he can have excision or cryoablation. He does have BPH and he is to continue with Flomax and Proscar as ordered. The serum PSA will be monitored and at some point the patient may require prostate biopsy. Thank you for this consultation. Tyrone Chowdhury M.D. DR: ESTEBAN JOB#: [id number] CC: Saida Cee M.D.; Fax#: [phone] [facility]
[2017-08-31 00:14] VITALS: BP 121/74
[2017-08-31 04:17] VITALS: BP 98/58
[2017-08-31 08:00] VITALS: BP 117/66
[2017-08-31] MEDS: LOXAPINE 25 MG ORAL SCH (08:43)
[2017-08-31] MEDS: Benztropine 1mg tab ORAL SCH (08:43)
[2017-08-31] MEDS: Tamsulosin 0.4mg cap ORAL SCH (08:43)
[2017-08-31] MEDS: Docusate 100mg cap ORAL SCH (08:44)
--- NOTE | 2017-08-31 08:53 | Urology Progress Note ---
Assessment/Plan Assessment/Plan 1. History of bladder cancer. 2. Renal mass, rule out renal cell carcinoma. 3. Benign prostatic hypertrophy. 4. Lower urinary tract symptoms. 5. Mild pyuria. 6. Renal cyst. 7. Tiny renal calculus. 8. Inguinal hernia. 9. Mild elevation of serum PSA. monitor clinically flomax and proscar surveillance cysto later as outpt serial imaging of renal mass f/u serum PSA later, may need biopsy of prostate at some point consider check PVR Subjective Allergies: Coded Allergies: FISH LIVER OIL (Verified Allergy, Mild, 09/04/08) Objective Last 24 Hour Vital Signs Date Time Temp Pulse Resp B/P (MAP) Pulse Ox O2 Delivery O2 Flow Rate FiO2 08/31/17 08:44 93 117/66 08/31/17 08:01 86 16 Room Air 21 08/31/17 08:00 98.1 93 20 117/66 (83) 98 98.1 08/31/17 04:17 96.9 64 20 98/58 (71) 92 96.9 08/31/17 00:14 97.3 69 20 121/74 (90) 92 97.3 08/30/17 21:00 Room Air 08/30/17 19:59 85 20 Room Air 21 08/30/17 19:40 97.6 80 20 106/68 (81) 92 97.6 08/30/17 16:44 97.8 74 18 112/77 (89) 95 97.8 08/30/17 12:00 97.8 88 18 126/90 (102) 95 97.8 08/30/17 09:19 70 137/83 08/30/17 09:00 Room Air Intake and Output 08/30/17 08/31/17 19:00 07:00 Intake Total 1080 ml Balance 1080 ml Intake Oral 1080 ml # Voids 3 3 Microbiology Date/Time Source Procedure Growth Status 08/28/17 00:15 Nose MRSA Culture - Final NO METHICILLIN RESISTANT STAPH AUREUS... Complete 08/28/17 00:15 Rectum VRE Culture - Final Enterococcus Faecalis - Vre Complete Current Medications Medications (Trade) Dose Ordered Sig/Davey Route PRN Reason Start Time Stop Time Status Last Admin Dose Admin Albuterol Sulfate (Proventil) 2.5 mg Q4H PRN HHN Shortness of Breath 08/27/17 20:25 09/01/17 20:24 7/17/18 03:45 Amlodipine Besylate (Norvasc) 5 mg DAILY ORAL 08/28/17 09:00 09/27/17 08:59 08/31/17 08:44 Benztropine Mesylate (Cogentin) 0.5 mg BID ORAL 08/28/17 09:00 09/27/17 08:59 08/31/17 08:43 Clonazepam (KlonoPIN) 1 mg BID ORAL 08/28/17 09:00 09/04/17 08:59 08/31/17 08:44 Docusate Sodium (Colace) 100 mg TWICE A DAY ORAL 08/28/17 09:00 09/27/17 08:59 08/31/17 08:44 EZETIMIBE (Zetia) 10 mg DAILY ORAL 08/28/17 09:00 09/27/17 08:59 08/31/17 08:44 Finasteride (Proscar) 5 mg DAILY@1100 ORAL 08/28/17 11:00 09/27/17 10:59 08/30/17 11:47 Ipratropium [place] (Atrovent) 500 mcg Q4H PRN HHN Shortness of Breath 08/27/17 20:25 09/01/17 20:24 08/28/17 03:45 Loxapine Succinate (Loxitane) 50 mg BID ORAL 08/30/17 09:00 09/27/17 08:59 08/31/17 08:43 Pantoprazole (Protonix) 40 mg DAILY@0700 ORAL 08/28/17 07:00 09/27/17 06:59 08/31/17 06:52 Quetiapine Fumarate (SEROquel) 150 mg BID ORAL 08/28/17 09:00 09/27/17 08:59 08/31/17 08:44 Tamsulosin HCl (Flomax) 0.4 mg DAILY ORAL 08/28/17 09:00 09/27/17 08:59 08/31/17 08:43 Temazepam (Restoril) 15 mg BEDTIME ORAL 08/27/17 21:00 09/03/17 20:59 08/30/17 20:49 Height (Feet): 5 Height (Inches): 10.00 Weight (Pounds): 136 Objective exam stable GAURAV DUARTE Aug 31, 2017 08:53
[2017-08-31 12:00] VITALS: BP 125/89
--- NOTE | 2017-08-31 16:44 | General Progress Note ---
Assessment/Plan Status: stable Assessment/Plan 1. Bladder mass history, consistent with urothelial cancer. On imaging shows a Heterogeneous partially enhancing 2.6 cm mass in the left kidney. Further evaluation with dynamic contrast-enhanced CT or MR is recommended. This should include noncontrast images of the kidney and multiple phases of enhancement. ( Note: Recommend waiting at least 24 hours after clearance of currently administered IV contrast before reinjection). Finding is probably incidental and workup suggested on a nonemergent basis. --> urology eval further appreciated --> tumor markers reviewed and are negative 2. Renal mass, potentially consistent with renal carcinoma. --> Abd/pelvis CT: Heterogeneous partially enhancing 2.6 cm mass in the left kidney. Diverticulosis of the colon. Prostate hypertrophy. Bilateral renal cysts. 3. Elevated PSA in the past. Most recent PSA was 10. --> psa in the 5-10 range, no need for further imaging 4. Anemia due to underlying chronic disease. --> Continue to closely monitor. --> Anemia w/u has been reviewed, will trend daily. --> Hgb goal >7 5. Thrombocytosis, likely secondary to reactive process. --> Closely monitor plt count 6. Schizophrenia. Monitor with psychiatric team. The time the note was entered does not necessarily correspond to the time the patient was seen. Subjective Date patient seen: Aug 31, 2017 ROS Limited/Unobtainable: Yes Hematologic/Lymphatic: Reports: anemia Allergies: Coded Allergies: FISH LIVER OIL (Verified Allergy, Mild, 09/04/08) All Systems: reviewed and negative except above Subjective Pt awake and alert. Pt is stable and medically cleared for DC. No acute distress. Objective Last 24 Hour Vital Signs Date Time Temp Pulse Resp B/P (MAP) Pulse Ox O2 Delivery O2 Flow Rate FiO2 08/31/17 12:00 98.2 115 19 125/89 (101) 99 98.2 08/31/17 09:00 Room Air 08/31/17 08:44 93 117/66 08/31/17 08:01 86 16 Room Air 21 08/31/17 08:00 98.1 93 20 117/66 (83) 98 98.1 08/31/17 04:17 96.9 64 20 98/58 (71) 92 96.9 08/31/17 00:14 97.3 69 20 121/74 (90) 92 97.3 08/30/17 21:00 Room Air 08/30/17 19:59 85 20 Room Air 21 08/30/17 19:40 97.6 80 20 106/68 (81) 92 97.6 08/30/17 16:44 97.8 74 18 112/77 (89) 95 97.8 Intake and Output 08/30/17 08/31/17 19:00 07:00 Intake Total 1080 ml Balance 1080 ml Intake Oral 1080 ml # Voids 3 3 Height (Feet): 5 Height (Inches): 10.00 Weight (Pounds): 136 General Appearance: no apparent distress EENT: PERRL/EOMI Neck: normal alignment Cardiovascular: normal peripheral pulses Respiratory/Chest: no respiratory distress Abdomen: normal bowel sounds Johnathan Lemons MD Aug 31, 2017 16:44
--- NOTE | 2017-09-03 08:27 | Discharge Summary ---
Discharge Summary Discharge Summary _ DATE OF ADMISSION: 08/27/2017 DATE OF DISCHARGE: 08/31/2017 REASON FOR ADMISSION: 72 years old male with past medical history significant for COPD, hypertension, paranoid schizophrenia, history of bladder CVA, presented with generalized weakness for one week. He denied any focal changes. No chest pain or shortness of breath, no abdominal pain, no fever ,no chills. Patient continued smoking. Upon evaluation in emergency department vital signs were stable. Chest x-ray revealed right basilar atelectasis. Physical examination revealed COPD exacerbation. EKG showed sinus rhythm with some PVCs. No leukocytosis, mild anemia. Patient received nebulizing treatment with bronchodilator, empiric azithromycin and loading dose of IV steroid. Patient admitted with generalized weakness, COPD exacerbation. CONSULTANTS: kier pleater/oncologist Dr. Lemons urologist Dr. Chowdhury psychiatrist [facility]: Patient admitted. Supplemental oxygen provided as needed to keep pulse oximetry above 92%. Pulmonary toilet provided around the clock and as needed. Steroids tapered. Urology and hematology consults were requested. Patient had a history of bladder cancer/urothelial cancer for which he was resected in 2014. Per urologist, patient need to have a surveillance cystoscopy (outpatient ) to ensure no recurrence. CT of the abdomen and pelvis revealed 2.6 cm left renal mass. Prostate hypertrophy. Per urologist, the mass had been there for number of years. It was not grown significantly over the last 2 years. Urologist recommended to monitor closely and at some point to have excision versus cryoablation. Proscar and Flomax were continued Patient voided without difficulty. PSA with mild elevation 5.12 ( previous-10). Oncologist closely follow. Tumor markers CA 19 -9 and 15-3 were negative. Renal mass potentially consistent with renal carcinoma, however growing very slowly. Oncologist recommended to follow-up with urologist recommendation for close monitoring. Patient had mild anemia due to underlying chronic disease,. Hemoglobin and hematocrit closely monitored with goal to keep hemoglobin above 7, most recent hemoglobin 13.8 and hematocrit 41.3. Patient noted to have thrombocytosis. Most recent platelet count 468. Thrombocytosis was likely secondary to reactive process . Granite Worker recommended close monitoring of platelet count. Psychiatrist seen and evaluated patient, and diagnosed patient with schizophrenia. Psychiatrist optimized psychiatric medication regimen. Blood pressure was managed with calcium channel curly. Zetia was continued. Patient was counseled on smoking cessation. Patient clinically improved. Pulse oximetry was stable on room air. Patient was discharged to [facility] with outpatient follow-up with urologist to schedule cystoscopy FINAL DIAGNOSES: COPD exacerbation Bladder/urothelial cancer, s/p resection Renal mass, rule out renal carcinoma Anemia of underlying chronic disease BPH Schizophrenia Thrombocytosis DISCHARGE MEDICATIONS: See Medication Reconciliation list. DISCHARGE INSTRUCTIONS: Patient was discharged home . Follow-up with primary care provider next week and urologist for cystoscopy. I have been assigned to dictate discharge summary for this account. I was not involved in the patient's management. Shauna Fitzgerald NP Sep 03, 2017 08:27
== END 2017-08-31 12:40 | disposition home or self-care (01) | DRG 191 ==
LOC: EDBD 15:35 → EMR 17:20 → 3E 17:23 → EDBEDREQ 17:25 → 4W 08-30 10:54
DX: J44.1 Chronic obstructive pulmonary disease with (acute) exacerbation (principal); C64.9 Malignant neoplasm of unspecified kidney, except renal pelvis; F20.0 Paranoid schizophrenia; I10 Essential (primary) hypertension; F41.9 Anxiety disorder, unspecified; K21.9 Gastro-esophageal reflux disease without esophagitis; Z85.51 Personal history of malignant neoplasm of bladder; N40.0 Benign prostatic hyperplasia without lower urinary tract symptoms; E78.5 Hyperlipidemia, unspecified; N28.89 Other specified disorders of kidney and ureter; D63.8 Anemia in other chronic diseases classified elsewhere; D47.3 Essential (hemorrhagic) thrombocythemia; Z88.8 Allergy status to other drugs, medicaments and biological substances; Z87.891 Personal history of nicotine dependence; K40.90 Unilateral inguinal hernia, without obstruction or gangrene, not specified as recurrent
CPT/HCPCS: 36415; 71045; 74177; 80053; 81003; 82378; 82550; 82553; 83880; 84153; 84484; 85025; 85044; 86300; 87081; 93005; 94640; 94664; 99285

== ENCOUNTER 2017-10-14 15:26 | Inpatient (IN) | payer MEDICARE, OTHER ==
[~2017-10-14] VITALS: Ht 172.7 cm; Wt 64.1 kg
[2017-10-14 15:26] VITALS: BP 115/73
[~2017-10-14 15:26] MED LIST changes: +ATROVENT HFA12.9 GM IH; +BENZTROPINE ME0.5 MG PO; +CHLORPROMAZINE25 MG PO; +LOXAPINE50 MG PO; +NEXIUM40 M2 ORAL; +NEXIUM40 MG ORAL; +QUETIAPINE FUM400 MG ORAL; +SEROQUEL XR300 MG ORAL; +TEMAZEPAM15 MG ORAL; +TEMAZEPAM30 MG ORAL; +VENTOLIN HFA18 GM INH; +ZETIA10 MG ORAL
[2017-10-14] MEDS ORDERED: Isovue-300 100ml vial INJ PRN (15:30)
--- NOTE | 2017-10-14 15:36 | Emergency Room Report ---
History of Present Illness General Chief Complaint: Abdominal Pain Source: Patient, Medical Record Present Illness HPI 72-year-old male presents ED for evaluation. [facility] Patient sent for feeling weak, poor appetite for several weeks. Patient also complaining of abdominal pain. States it is "all over". Dull, 10 out of 10, nonradiating. Denies chest pain or shortness of breath. Patient has extensive psychiatric history. Denies suicidal or homicidal ideation. Denies hearing voices. No other aggravating relieving factors. Denies any other associated symptoms Allergies: Coded Allergies: FISH LIVER OIL (Verified Allergy, Mild, 09/04/08) Patient History Past Medical History: HTN, COPD, psych hx Pertinent Family History: none Social History: Denies: smoking, alcohol use, drug use Immunizations: UTD Reviewed Nursing Documentation: PMH: Agreed; PSxH: Agreed Nursing Documentation-PMH Past Medical History: No History, Except For Hx Cardiac Problems: No Hx Hypertension: Yes Hx COPD: Yes Hx Cancer: Yes Hx Gastrointestinal Problems: No History Of Psychiatric Problem: Yes - Paranoid schizophrenia Hx Neurological Problems: No Review of Systems All Other Systems: negative except mentioned in HPI Physical Exam Vital Signs Date Time Temp Pulse Resp B/P (MAP) Pulse Ox O2 Delivery O2 Flow Rate FiO2 10/14/17 15:21 98.2 90 18 114/74 92 Room Air 98.2 Sp02 EP Interpretation: reviewed, normal General Appearance: no apparent distress, alert, GCS 15, non-toxic Head: normocephalic, atraumatic Eyes: bilateral eye normal inspection, bilateral eye PERRL ENT: hearing grossly normal, normal pharynx, no angioedema, normal voice Neck: full range of motion, supple/symm/no masses Respiratory: chest non-tender, lungs clear, normal breath sounds, speaking full sentences Cardiovascular #1: regular rate, rhythm, no edema Cardiovascular #2: 2+ carotid (R), 2+ carotid (L), 2+ radial (R), 2+ radial (L) , 2+ dorsalis pedis (R), 2+ dorsalis pedis (L) Gastrointestinal: normal bowel sounds, soft, non-distended, no guarding, no rebound, tenderness Rectal: deferred Genitourinary: normal inspection, no CVA tenderness Musculoskeletal: back normal, gait/station normal, normal range of motion, non- tender Neurologic: alert, oriented x3, responsive, motor strength/tone normal, sensory intact, speech normal Psychiatric: judgement/insight normal, memory normal, no suicidal/homicidal ideation, no delusions, anxious Reflexes: 3+ bicep (R), 3+ bicep (L), 3+ tricep (R), 3+ tricep (L), 3+ knee (R) , 3+ knee (L) Skin: normal color, no rash, warm/dry, well hydrated Lymphatic: no adenopathy Medical Decision Making Diagnostic Impression: Primary Impression: Abdominal pain Qualified Codes: R10.84 - Generalized abdominal pain Additional Impression: Weakness ER Course Hospital Course 72 yo M presents to ED c/o abd pain, poor appetite, weakness Differential diagnoses include: BPH, cystitis, pyelonephritis, kidney stone Clinical course Patient placed on stretcher. phototypesetting equipment monitor. After initial history and physical I ordered labs, IV fluids, UA, and CT scan Labs - minimal leukocytosis, Hb/Hct stable, electrolytes ok CT abdomen and pelvis - ? small grade bowel obstruction vs ileus clinically patient is not showing signs of obstruction. Bowel sounds present. Patient is having bowel movements. Case discussed with Dr. Fall and he agreed to accept the patient to his service for further care and support I feel this is a highly complex case requiring extensive working including EKG/ Rhythm strip, Xray/CT/US, Blood/urine lab work, repeat exams while in ED, and administration of strong opiates/narcotics for pain control, admission to hospital or close patient follow up. Diagnosis - abdominal pain, weakness Patient admitted to floor in serious condition Labs Test 10/14/17 15:48 10/14/17 17:10 10/15/17 07:55 White Blood Count 12.5 K/UL (4.8-10.8) 10.9 K/UL (4.8-10.8) Red Blood Count 4.59 M/UL (4.70-6.10) 4.36 M/UL (4.70-6.10) Hemoglobin 14.6 G/DL (14.2-18.0) 13.3 G/DL (14.2-18.0) Hematocrit 41.1 % (42.0-52.0) 39.4 % (42.0-52.0) Mean Corpuscular Volume 90 FL (80-99) 90 FL (80-99) Mean Corpuscular Hemoglobin 31.9 PG (27.0-31.0) 30.5 PG (27.0-31.0) Mean Corpuscular Hemoglobin Concent 35.6 G/DL (32.0-36.0) 33.7 G/DL (32.0-36.0) Red Cell Distribution Width 13.8 % (11.6-14.8) 13.6 % (11.6-14.8) Platelet Count 329 K/UL (150-450) 316 K/UL (150-450) Mean Platelet Volume 7.2 FL (6.5-10.1) 7.5 FL (6.5-10.1) Neutrophils (%) (Auto) 69.0 % (45.0-75.0) 60.9 % (45.0-75.0) Lymphocytes (%) (Auto) 16.0 % (20.0-45.0) 20.5 % (20.0-45.0) Monocytes (%) (Auto) 10.2 % (1.0-10.0) 10.4 % (1.0-10.0) Eosinophils (%) (Auto) 2.7 % (0.0-3.0) 6.3 % (0.0-3.0) Basophils (%) (Auto) 2.2 % (0.0-2.0) 2.0 % (0.0-2.0) Sodium Level 143 MMOL/L (136-145) 142 MMOL/L (136-145) Potassium Level 3.6 MMOL/L (3.5-5.1) 3.5 MMOL/L (3.5-5.1) Chloride Level 106 MMOL/L (98-107) 108 MMOL/L (98-107) Carbon Dioxide Level 29 MMOL/L (21-32) 27 MMOL/L (21-32) Anion Gap 8 mmol/L (5-15) 7 mmol/L (5-15) Blood Urea Nitrogen 31 mg/dL (7-18) 21 mg/dL (7-18) Creatinine 1.1 MG/DL (0.55-1.30) 0.8 MG/DL (0.55-1.30) Estimat Glomerular Filtration Rate mL/min (>60) mL/min (>60) Glucose Level 128 MG/DL (74-106) 112 MG/DL (74-106) Calcium Level 8.6 MG/DL (8.5-10.1) 8.5 MG/DL (8.5-10.1) Total Bilirubin 0.4 MG/DL (0.2-1.0) 0.2 MG/DL (0.2-1.0) Aspartate Amino Transf (AST/SGOT) 11 U/L (15-37) 16 U/L (15-37) Alanine Aminotransferase (ALT/SGPT) 17 U/L (12-78) 17 U/L (12-78) Alkaline Phosphatase 84 U/L (46-116) 75 U/L (46-116) Total Protein 6.1 G/DL (6.4-8.2) 5.5 G/DL (6.4-8.2) Albumin 3.0 G/DL (3.4-5.0) 2.6 G/DL (3.4-5.0) Globulin 3.1 g/dL 2.9 g/dL Albumin/Globulin Ratio 1.0 (1.0-2.7) 0.9 (1.0-2.7) Lipase 44 U/L (73-393) 56 U/L (73-393) Urine Color Puja Urine Appearance Slightly cloudy Urine pH 5 (4.5-8.0) Urine Specific [place] 1.015 (1.005-1.035) Urine Protein 2+ (NEGATIVE) Urine Glucose (UA) Negative (NEGATIVE) Urine Ketones Negative (NEGATIVE) Urine Blood Negative (NEGATIVE) Urine Nitrite Negative (NEGATIVE) Urine Bilirubin 1+ (NEGATIVE) Urine Ictotest Negative (NEGATIVE) Urine Urobilinogen 1 MG/DL (0.0-1.0) Urine Leukocyte Esterase 1+ (NEGATIVE) Urine RBC 0-2 /HPF (0 - 0) Urine WBC 5-10 /HPF (0 - 0) Urine Squamous Epithelial Cells Occasional /LPF Urine Amorphous Sediment Many /LPF (NONE) Urine Bacteria Few /HPF (NONE) Urine Mucus Few /LPF (NONE/OCC) Activated Partial Thromboplast Time 27 SEC (23-33) Amylase Level 29 U/L (25-115) CT/MRI/US Diagnostic Results CT/MRI/US Diagnostic Results : Imaging Test Ordered: CT A/P Impression Mildly dilated small bowel in the mid to lower abdomen leading to a area of distal small bowel containing fecalized material concerning for low-grade or developing obstruction and less likely focal ileus, clinically correlate No free air or free fluid Normal caliber appendix without secondary signs Diverticulosis without diverticulitis The gallbladder appears mildly distended Last Vital Signs Date Time Temp Pulse Resp B/P (MAP) Pulse Ox O2 Delivery O2 Flow Rate FiO2 10/14/17 15:26 97.8 89 20 115/73 91 Room Air 97.8 Status: improved Disposition: ADMITTED INPATIENT Condition: Serious Humza Orozco MD Oct 14, 2017 15:36
[2017-10-14 16:17] LABS: BASOPHILS % (AUTO) 2.2 % (0.0-2.0); EOSINOPHILS % (AUTO) 2.7 % (0.0-3.0); HEMATOCRIT 41.1 % (42.0-52.0); HEMOGLOBIN 14.6 G/DL (14.2-18.0); MEAN CORPUSCULAR VOLUME 90 FL (80-99); MONOCYTES % (AUTO) 10.2 % (1.0-10.0); PLATELET COUNT 329 K/UL (150-450); RED BLOOD COUNT 4.59 M/UL (4.70-6.10); RED CELL DISTRIBUTION WIDTH 13.8 % (11.6-14.8); WHITE BLOOD COUNT 12.5 K/UL (4.8-10.8)
[2017-10-14 16:19] LABS: ANION GAP 8 mmol/L (5-15); BLOOD UREA NITROGEN 31 mg/dL (7-18); CALCIUM 8.6 MG/DL (8.5-10.1); CARBON DIOXIDE 29 MMOL/L (21-32); CHLORIDE 106 MMOL/L (98-107); CREATININE 1.1 MG/DL (0.55-1.30); POTASSIUM 3.6 MMOL/L (3.5-5.1); SODIUM 143 MMOL/L (136-145)
[2017-10-14 16:23] LABS: ALANINE AMINOTRANSFERASE 17 U/L (12-78); ALKALINE PHOSPHATASE 84 U/L (46-116); ASPARTATE AMINO TRANSFERASE 11 U/L (15-37); BILIRUBIN,TOTAL 0.4 MG/DL (0.2-1.0)
[2017-10-14 16:57] VITALS: BP 99/78
[2017-10-14] MEDS ORDERED: Nitroglycerin Subl 0.4mg tab SL PRN (17:00)
[2017-10-14] MEDS ORDERED: Miralax 17gm pkt ORAL PRN (17:00)
[2017-10-14] MEDS ORDERED: Promethazine HCl 12.5 MG in NS 55 ML IV PRN (17:00)
[2017-10-14] MEDS ORDERED: LORazepam Inj 2mg/ml 1ml IV PRN (17:00)
[2017-10-14] MEDS ORDERED: Morphine Sulfate 2mg/ml Inj IVP PRN (17:00)
[2017-10-14] MEDS ORDERED: Mylanta II UD 30ml ORAL PRN (17:00)
[2017-10-14] MEDS ORDERED: Metoclopramide 10mg/2ml Inj IVP PRN (17:00)
[2017-10-14] MEDS ORDERED: Promethazine HCl 25 MG in NS 55 ML IV PRN (17:00)
[2017-10-14 17:36] LABS: APPEARANCE,URINE SLIGHTLY CLOUDY; BILIRUBIN, URINE 1+ (NEGATIVE); COLOR,URINE AMBER; GLUCOSE, URINE (UA) NEGATIVE (NEGATIVE); KETONES,URINE NEGATIVE (NEGATIVE); LEUKOCYTE ESTERASE ,URINE 1+ (NEGATIVE); NITRITE,URINE NEGATIVE (NEGATIVE); PH,URINE 5 (4.5-8.0); PROTEIN,URINE 2+ (NEGATIVE); UROBILINOGEN,URINE 1 MG/DL (0.0-1.0)
[2017-10-14] MEDS: D5 1/2NS 1,000 ML IV SCH (18:05)
[2017-10-14 20:00] VITALS: BP 113/72
[2017-10-14] MEDS: Heparin 5000 units/ml inj SUBQ SCH (21:14)
[2017-10-15] VITALS: BP 114/61
[2017-10-15 04:00] VITALS: BP 122/69
[2017-10-15] MEDS: D5 1/2NS 1,000 ML IV SCH ×2 (05:43→19:40)
--- NOTE | 2017-10-15 07:00 | Consultation ---
DATE OF CONSULTATION: 10/15/2017 INITIAL PSYCHIATRIC CONSULTATION CONSULTING PHYSICIAN: Lenny Lee M.D. REQUESTING PHYSICIAN: Yanick Fall D.O. HISTORY OF PRESENT ILLNESS: This patient is a 72-year-old male patient who was admitted to the hospital. Reason why he was admitted is because he has weakness and vomiting, but he also has a diagnosis of paranoid schizophrenia, and apparently his psychosis and mood lability are worsened by the stress of his medical illness. That is why the attending has requested daily psychiatric consultation for this patient. PAST MEDICAL HISTORY: He has a history of hypertension, weakness, and recent vomiting. In addition to that, he has a history of BPH, status post bladder tumor, sepsis, and recent seizure events with bradycardia. SUBSTANCE ABUSE HISTORY: Denies drug and alcohol use. SOCIAL HISTORY: The patient lives in a facility known as [facility]. ALLERGIES: He has no known drug allergies. PSYCHIATRIC HISTORY: Paranoid schizophrenia. STRENGTHS: He is motivated to get better. WEAKNESSES: He is impulsive. Minimal support system. MENTAL STATUS EXAMINATION: This is a 72-year-old male. Appearance is disheveled. Attitude, irritable and agitated. Affect guarded and restricted. Intellect poor. Mood is depressed and anxious. Motor activity, psychomotor agitation. Attention span is poor. Orientation x2. Speech is pressured. Thought process, disorganized and illogical. Thought content, slight paranoid delusions. Insight and judgment are poor. Denies suicidal or homicidal thoughts at this time. DIAGNOSES: 1. Paranoid schizophrenia with acute exacerbation. 2. Medical problems - weakness, vomiting, psychosocial stressors, and financial stressors. PLAN: I am going to continue this patient on Ativan 1 IV q.4 h. p.r.n. anxiety and agitation, but also started him on loxapine 50 mg twice a day, he says he takes it for auditory hallucinations and psychosis, and also Seroquel 200 mg nightly for insomnia, mood , and psychosis. Twenty minutes of cognitive behavior therapy was provided to help the patient identify automatic negative thoughts that he is having due to outside stimuli and help him to convert those to more positive thoughts to reduce depression and anxiety. Twenty minutes of cognitive behavior therapy. Also encouraged him to interact appropriately with staff. Chart was reviewed. Discussed with staff. The patient was seen and assessed in his room. I would like to thank Dr. Yanick Fall for this interesting consultation. Lenny Lee M.D. DR: ALEXY JOB#: [id number] CC:
[2017-10-15 08:00] VITALS: BP 112/70
[2017-10-15] MEDS ORDERED: Promethazine/Codeine 5ml UD ORAL PRN (08:15)
[2017-10-15 08:37] LABS: EOSINOPHILS % (AUTO) 6.3 % (0.0-3.0); HEMATOCRIT 39.4 % (42.0-52.0); HEMOGLOBIN 13.3 G/DL (14.2-18.0); LYMPHOCYTES % (AUTO) 20.5 % (20.0-45.0); MEAN CORPUSCULAR VOLUME 90 FL (80-99); MONOCYTES % (AUTO) 10.4 % (1.0-10.0); NEUTROPHILS % (AUTO) 60.9 % (45.0-75.0); PLATELET COUNT 316 K/UL (150-450); RED BLOOD COUNT 4.36 M/UL (4.70-6.10); RED CELL DISTRIBUTION WIDTH 13.6 % (11.6-14.8); WHITE BLOOD COUNT 10.9 K/UL (4.8-10.8)
--- NOTE | 2017-10-15 08:53 | Consultation ---
History of Present Illness General Date patient seen: Oct 15, 2017 Time patient seen: 08:00 Chief Complaint: Abdominal Pain Referring physician: dr Fall Reason for Consultation: COPD Present Illness HPI 72-year-old male with PMH of COPD, HTN, paranoid schizophrenia brought to ED for evaluation from care home facility. Patient was sent for feeling weak and poor appetite for several weeks. Patient also complained of abdominal pain, being "all over". Pain described as dull, 10 out of 10, nonradiating. Denies chest pain or shortness of breath. Patient denied SI/.HI. Denied hearing voices. Vital signs were stable Lab work revealed leukocytosis, WBC-12.5 BUN 31, creat 1.1 CT A/P done, results pending. Prior CT in August 2017 revealed 2.6 cm mass in the left kidney. patient admitted with diagnosis of abdominal pain, dehydration , generalized weakness. Allergies: Coded Allergies: FISH LIVER OIL (Verified Allergy, Mild, 09/04/08) Medication History Scheduled Amlodipine Besylate* (Amlodipine Besylate*), 5 MG ORAL DAILY, (Reported) Clonazepam* (Klonopin*), 1 MG ORAL BID, (Reported) Docusate Sodium* (Colace*), 100 MG ORAL TWICE A DAY, (Reported) Esomeprazole Magnesium (Nexium), 40 MG ORAL DAILY, (Reported) Ezetimibe (Zetia*), 10 MG ORAL DAILY, (Reported) Finasteride (Finasteride), 5 MG ORAL DAILY, (Reported) Loxapine Succinate (Loxapine), 50 MG PO BID, (Reported) Quetiapine Fumarate (Seroquel Xr), 300 MG ORAL QHS, (Reported) Tamsulosin HCl (Flomax), 0.4 MG ORAL DAILY, (Reported) Temazepam (Temazepam*), 15 MG ORAL BEDTIME, (Reported) Scheduled PRN Albuterol Sulfate (Ventolin Hfa), 2 PUFFS INH Q4HR PRN for Shortness of Breath, (Reported) Ipratropium [place] (Atrovent Hfa), 2 PUFFS IH Q6HR PRN for Shortness of Breath, (Reported) Discontinued Medications Benztropine Mesylate* (Cogentin*), 0.5 MG PO BID, (Reported) Discontinued Reason: discontinued med Patient History Healthcare decision maker Resuscitation status Advanced Directive on File Yes Review of Systems Eye: Reports: no symptoms ENT: Reports: no symptoms Respiratory: Reports: other - COPD Cardiovascular: Reports: no symptoms Gastrointestinal: Reports: see HPI Genitourinary: Reports: other - BPH Musculoskeletal: Reports: no symptoms Skin: Reports: no symptoms Psychiatric: Reports: see HPI, other - paranoid schizophrenia Neurological: Reports: no symptoms Endocrine: Reports: no symptoms Hematologic/Lymphatic: Reports: no symptoms Physical Exam General Appearance: WD/WN, no apparent distress, alert Lines, tubes and drains: peripheral HEENT: normocephalic, atraumatic, anicteric, mucous membranes moist Neck: non-tender, supple Respiratory/Chest: lungs clear, normal breath sounds, no respiratory distress Cardiovascular/Chest: normal rate, no JVD Abdomen: normal bowel sounds, non tender, soft Extremities: normal range of motion, non-tender Skin Exam: warm/dry Neurologic: alert, responsive Musculoskeletal: normal muscle bulk Last 24 Hour Vital Signs Date Time Temp Pulse Resp B/P (MAP) Pulse Ox O2 Delivery O2 Flow Rate FiO2 10/15/17 04:00 97.9 77 19 122/69 (86) 92 97.9 10/15/17 00:00 97.9 75 19 114/61 (78) 92 97.9 10/14/17 21:00 Room Air 10/14/17 20:00 98.9 73 20 113/72 (86) 92 98.9 10/14/17 16:58 Room Air 10/14/17 16:57 97.9 87 20 99/78 92 Room Air 97.9 10/14/17 16:57 97.8 87 20 115/73 91 Room Air 97.8 10/14/17 15:26 97.8 89 20 115/73 91 Room Air 97.8 10/14/17 15:21 98.2 90 18 114/74 92 Room Air 98.2 Intake and Output 10/14/17 10/15/17 19:00 07:00 Intake Total 0 ml 1260 ml Output Total 0 ml 600 ml Balance 0 ml 660 ml Intake Oral 0 ml 360 ml IV Total 900 ml Output Urine Total 0 ml 600 ml Laboratory Tests Test 10/14/17 15:48 10/14/17 17:10 10/15/17 07:55 White Blood Count 12.5 K/UL (4.8-10.8) H 10.9 K/UL (4.8-10.8) H Red Blood Count 4.59 M/UL (4.70-6.10) L 4.36 M/UL (4.70-6.10) L Hemoglobin 14.6 G/DL (14.2-18.0) 13.3 G/DL (14.2-18.0) L Hematocrit 41.1 % (42.0-52.0) L 39.4 % (42.0-52.0) L Mean Corpuscular Volume 90 FL (80-99) 90 FL (80-99) Mean Corpuscular Hemoglobin 31.9 PG (27.0-31.0) H 30.5 PG (27.0-31.0) Mean Corpuscular Hemoglobin Concent 35.6 G/DL (32.0-36.0) 33.7 G/DL (32.0-36.0) Red Cell Distribution Width 13.8 % (11.6-14.8) 13.6 % (11.6-14.8) Platelet Count 329 K/UL (150-450) 316 K/UL (150-450) Mean Platelet Volume 7.2 FL (6.5-10.1) 7.5 FL (6.5-10.1) Neutrophils (%) (Auto) 69.0 % (45.0-75.0) 60.9 % (45.0-75.0) Lymphocytes (%) (Auto) 16.0 % (20.0-45.0) L 20.5 % (20.0-45.0) Monocytes (%) (Auto) 10.2 % (1.0-10.0) H 10.4 % (1.0-10.0) H Eosinophils (%) (Auto) 2.7 % (0.0-3.0) 6.3 % (0.0-3.0) H Basophils (%) (Auto) 2.2 % (0.0-2.0) H 2.0 % (0.0-2.0) Sodium Level 143 MMOL/L (136-145) Pending Potassium Level 3.6 MMOL/L (3.5-5.1) Pending Chloride Level 106 MMOL/L (98-107) Pending Carbon Dioxide Level 29 MMOL/L (21-32) Pending Anion Gap 8 mmol/L (5-15) Blood Urea Nitrogen 31 mg/dL (7-18) H Pending Creatinine 1.1 MG/DL (0.55-1.30) Pending Estimat Glomerular Filtration Rate mL/min (>60) Pending Glucose Level 128 MG/DL (74-106) H Pending Calcium Level 8.6 MG/DL (8.5-10.1) Pending Total Bilirubin 0.4 MG/DL (0.2-1.0) Pending Aspartate Amino Transf (AST/SGOT) 11 U/L (15-37) L Pending Alanine Aminotransferase (ALT/SGPT) 17 U/L (12-78) Pending Alkaline Phosphatase 84 U/L (46-116) Pending Total Protein 6.1 G/DL (6.4-8.2) L Pending Albumin 3.0 G/DL (3.4-5.0) L Pending Globulin 3.1 g/dL Pending Albumin/Globulin Ratio 1.0 (1.0-2.7) Lipase 44 U/L (73-393) L Pending Urine Color Puja Urine Appearance Slightly cloudy Urine pH 5 (4.5-8.0) Urine Specific [place] 1.015 (1.005-1.035) Urine Protein 2+ (NEGATIVE) H Urine Glucose (UA) Negative (NEGATIVE) Urine Ketones Negative (NEGATIVE) Urine Blood Negative (NEGATIVE) Urine Nitrite Negative (NEGATIVE) Urine Bilirubin 1+ (NEGATIVE) H Urine Ictotest Negative (NEGATIVE) Urine Urobilinogen 1 MG/DL (0.0-1.0) H Urine Leukocyte Esterase 1+ (NEGATIVE) H Urine RBC 0-2 /HPF (0 - 0) H Urine WBC 5-10 /HPF (0 - 0) H Urine Squamous Epithelial Cells Occasional /LPF Urine Amorphous Sediment Many /LPF (NONE) H Urine Bacteria Few /HPF (NONE) Urine Mucus Few /LPF (NONE/OCC) H Activated Partial Thromboplast Time Pending Amylase Level Pending Microbiology Date/Time Source Procedure Growth Status 10/14/17 16:23 Rectum Received Height (Feet): 5 Height (Inches): 8.00 Weight (Pounds): 175 Medications Current Medications Medications (Trade) Dose Ordered Sig/Davey Route PRN Reason Start Time Stop Time Status Last Admin Dose Admin Acetaminophen (Tylenol) 650 mg Q4H PRN ORAL fever 10/14/17 17:00 11/13/17 16:59 Al Hydroxide/Mg Hydroxide (Mylanta II) 30 ml Q6H PRN ORAL dyspepsia 10/14/17 17:00 11/13/17 16:59 Amlodipine Besylate (Norvasc) 5 mg DAILY ORAL 10/15/17 09:00 11/14/17 08:59 Clonazepam (KlonoPIN) 1 mg BID ORAL 10/14/17 18:00 10/21/17 17:59 10/14/17 18:12 Dextrose (Dextrose 50%) 25 ml STAT PRN IV Hypoglycemia 10/14/17 17:00 11/13/17 16:59 Dextrose (Dextrose 50%) 50 ml STAT PRN IV Hypoglycemia 10/14/17 17:15 11/13/17 17:14 Dextrose/Sodium Chloride 1,000 ml @ 75 mls/hr [id number] IV 10/14/17 17:00 11/13/17 16:59 10/15/17 05:43 Diphenhydramine HCl (Benadryl) 25 mg Q6H PRN ORAL Itching/Pruritis 10/14/17 17:00 11/13/17 16:59 EZETIMIBE (Zetia) 10 mg DAILY ORAL 10/15/17 09:00 11/14/17 08:59 Finasteride (Proscar) 5 mg DAILY ORAL 10/15/17 09:00 11/14/17 08:59 Heparin Sodium (Porcine) (Heparin 5000 units/ml) 5,000 units EVERY 12 HOURS SUBQ 10/14/17 21:00 11/13/17 20:59 10/14/17 21:14 Iopamidol (Isovue-300 100ml) 100 ml NOW PRN INJ Radiology Procedure 10/14/17 15:30 Lorazepam (Ativan 2mg/ml 1ml) 1 mg Q4H PRN IV agitation 10/14/17 17:00 10/21/17 16:59 Loxapine Succinate (Loxitane) 50 mg TWICE A DAY ORAL 10/15/17 09:00 11/14/17 08:59 Metoclopramide HCl (Reglan) 10 mg Q6H PRN IVP severe nausea 10/14/17 17:00 11/13/17 16:59 Morphine Sulfate (Morphine Sulfate) 2 mg Q4H PRN IVP severe Pain (Pain Scale 7-10) 10/14/17 17:00 10/21/17 16:59 Nitroglycerin (Ntg) 0.4 mg Q5M X 3 DOSES PRN SL Prn Chest Pain 10/14/17 17:00 11/13/17 16:59 Ondansetron HCl (Zofran) 4 mg Q6H PRN IVP Nausea & Vomiting 10/14/17 17:00 11/13/17 16:59 Pantoprazole (Protonix) 40 mg DAILY IV 10/15/17 09:00 11/14/17 08:59 Polyethylene Glycol (Miralax) 17 gm HSPRN PRN ORAL Constipation 10/14/17 17:00 11/13/17 16:59 Promethazine HCl (Phenergan) 12.5 mg Q6H PRN IM refractory nausea and vomiting 10/14/17 17:30 11/13/17 17:29 Promethazine HCl/ Codeine (Phenergan with Codeine) 5 ml Q6H PRN ORAL For Cough 10/15/17 08:15 11/14/17 08:14 Quetiapine Fumarate (SEROquel) 200 mg QHS ORAL 10/15/17 21:00 11/14/17 20:59 Tamsulosin HCl (Flomax) 0.4 mg DAILY ORAL 10/15/17 09:00 11/14/17 08:59 Temazepam (Restoril) 15 mg HSPRN PRN ORAL Insomnia 10/14/17 17:00 10/21/17 16:59 Assessment/Plan Assessment/Plan ASSESSMENT dehydration probably protein calorie malnutrition COPD HTN Leukocytosis abdominal pain L kidney mass ( on prior imaging) BPH Paranoid schizophrenia with acute exacerbation PLAN OF CAQRE MS floor IVF monitor renal parameters, lytes, correct lytes as needed and avoid nephrotoxic dietary eval fup with CT A/P results, get abd US depending on results GI eval pain management supplemental O2, pulmonary toilet a/tussive prn BP management with CCB DVT GI prophylaxis supportive care continue Proscar monitor for voiding psych meds as per psych MD recommendations case discussed and evaluated by supervising physician Shauna Fitzgerald NP Oct 15, 2017 08:53
[2017-10-15 09:03] LABS: ALANINE AMINOTRANSFERASE 17 U/L (12-78); ALBUMIN 2.6 G/DL (3.4-5.0); ALBUMIN/GLOBULIN RATIO 0.9 (1.0-2.7); ALKALINE PHOSPHATASE 75 U/L (46-116); AMYLASE 29 U/L (25-115); ANION GAP 7 mmol/L (5-15); ASPARTATE AMINO TRANSFERASE 16 U/L (15-37); BILIRUBIN,TOTAL 0.2 MG/DL (0.2-1.0); BLOOD UREA NITROGEN 21 mg/dL (7-18); CALCIUM 8.5 MG/DL (8.5-10.1); CARBON DIOXIDE 27 MMOL/L (21-32); CHLORIDE 108 MMOL/L (98-107); CREATININE 0.8 MG/DL (0.55-1.30); POTASSIUM 3.5 MMOL/L (3.5-5.1); SODIUM 142 MMOL/L (136-145)
[2017-10-15] MEDS: Pantoprazole Inj IV SCH (09:34)
[2017-10-15] MEDS: LOXAPINE 25 MG ORAL SCH ×2 (09:35→17:13)
[2017-10-15] MEDS: Tamsulosin 0.4mg cap ORAL SCH (09:35)
[2017-10-15] MEDS: Heparin 5000 units/ml inj SUBQ SCH ×2 (09:40→20:34)
--- NOTE | 2017-10-15 11:45 | Consultation ---
DATE OF CONSULTATION: 10/15/2017 GASTROENTEROLOGY CONSULTATION CONSULTING PHYSICIAN: Manuel Dominguez M.D. CHIEF COMPLAINT: Nausea, vomiting, abdominal pain. HISTORY OF PRESENT ILLNESS: This is a 72-year-old male with past medical history of possible renal cell carcinoma followed by Urology, history of BPH, history of gallstones, who presented to the hospital with complaint of nausea, vomiting, and abdominal pain. At this time, the patient denies any abdominal pain. He has history of schizophrenia. He states he wants to eat and go home. PAST MEDICAL HISTORY: 1. History of COPD. 2. Hypertension. 3. Schizophrenia. 4. Acid reflux disease. 5. BPH. 6. Renal mass. 7. Hyperlipidemia. 8. Gallstones. ALLERGIES: To fish liver oil. MEDICATIONS: Please see medication reconciliation list. SOCIAL HISTORY: He is an ex-smoker. Lives at the assisted living. Denies any alcohol or IV drug abuse. FAMILY HISTORY: Noncontributory. REVIEW OF SYSTEMS: A 10-point review of systems was performed and pertinent positives are as in HPI. PHYSICAL EXAMINATION: VITAL SIGNS: Temperature 97.9, pulse 77, respirations 19, blood pressure is 122/69. HEENT: Normocephalic and atraumatic. Sclerae anicteric. NECK: Supple. No evidence of lymphadenopathy. CARDIOVASCULAR: Regular rhythm. Plus S1 and S2. LUNGS: Clear to auscultation bilaterally. ABDOMEN: Positive bowel sounds. Soft and nontender. No rebound. No guarding. No peritoneal sign. EXTREMITIES: No cyanosis, no clubbing, no edema. LABORATORY DATA: White count is 12.5, hemoglobin 14, hematocrit 41, platelets are 329,000. Chem-7 grossly normal except for glucose of 128. Liver enzymes are normal. CEA has been elevated at . ASSESSMENT AND PLAN: This is a 72-year-old male with history of possible renal cell carcinoma or kidney cancer and now presented with nausea and vomiting. Reviewing imaging in August showed the patient had evidence of gallstones. He was concerned about cholecystitis. The patient has mildly elevated white count, abdominal pain, and vomiting, so acute cholecystitis is a possibility. Plan to order an abdominal ultrasound and repeat laboratories for tomorrow. Given his abdominal pain is improved and he is hungry, we are going to start him on a diet today and we will monitor. The patient most probably will need an endoscopy and colonoscopy, but at this time, most probably it needs to be done as an outpatient. Manuel Dominguez M.D. DR: Rosario JOB#: [id number] CC:
[2017-10-15 12:00] VITALS: BP 118/72
--- NOTE | 2017-10-15 13:25 | Consultation ---
History of Present Illness General Date patient seen: Oct 15, 2017 Chief Complaint: Abdominal Pain Referring physician: dr Fall Reason for Consultation: COPD Present Illness HPI 72 y/o M withx of renal mass, seizure disorder, BPH, cholelithiasis, COPD, HTN, GERD, HLD, paranoid schizophrenia, SNF resident presents to ED on 10/14 with nausea, vomiting and abd pain. Pain described as diffuse, dull, 10/10, non radiating. Also has been weak, poor appetite for the last several weeks. ID consulted for leukocytosis Denies CP, SOB. . Allergies: Coded Allergies: FISH LIVER OIL (Verified Allergy, Mild, 09/04/08) Medication History Scheduled Amlodipine Besylate* (Amlodipine Besylate*), 5 MG ORAL DAILY, (Reported) Clonazepam* (Klonopin*), 1 MG ORAL BID, (Reported) Docusate Sodium* (Colace*), 100 MG ORAL TWICE A DAY, (Reported) Esomeprazole Magnesium (Nexium), 40 MG ORAL DAILY, (Reported) Ezetimibe (Zetia*), 10 MG ORAL DAILY, (Reported) Finasteride (Finasteride), 5 MG ORAL DAILY, (Reported) Loxapine Succinate (Loxapine), 50 MG PO BID, (Reported) Quetiapine Fumarate (Seroquel Xr), 300 MG ORAL QHS, (Reported) Tamsulosin HCl (Flomax), 0.4 MG ORAL DAILY, (Reported) Temazepam (Temazepam*), 15 MG ORAL BEDTIME, (Reported) Scheduled PRN Albuterol Sulfate (Ventolin Hfa), 2 PUFFS INH Q4HR PRN for Shortness of Breath, (Reported) Ipratropium [place] (Atrovent Hfa), 2 PUFFS IH Q6HR PRN for Shortness of Breath, (Reported) Discontinued Medications Benztropine Mesylate* (Cogentin*), 0.5 MG PO BID, (Reported) Discontinued Reason: MD discontinued med Patient History Healthcare decision maker Resuscitation status Advanced Directive on File Yes Patient History Narrative Pmhx: as above Shx: He is an ex-smoker. Lives at the assisted living. Denies any alcohol or IV drug abuse. Fhx: non contributory Review of Systems All Other Systems: negative except mentioned in HPI Physical Exam Physical Exam Narrative General Appearance: WD/WN, no apparent distress, alert Lines, tubes and drains: peripheral HEENT: normocephalic, atraumatic, anicteric, mucous membranes moist Neck: non-tender, supple Respiratory/Chest: lungs clear, normal breath sounds, no respiratory distress Cardiovascular/Chest: normal rate, no JVD Abdomen: normal bowel sounds, non tender, soft Extremities: normal range of motion, non-tender Skin Exam: warm/dry Neurologic: alert, responsive Musculoskeletal: normal muscle bulk Last 24 Hour Vital Signs Date Time Temp Pulse Resp B/P (MAP) Pulse Ox O2 Delivery O2 Flow Rate FiO2 10/15/17 09:00 Room Air 10/15/17 09:00 79 112/70 10/15/17 08:00 96.2 79 22 112/70 (84) 94 96.2 10/15/17 04:00 97.9 77 19 122/69 (86) 92 97.9 10/15/17 00:00 97.9 75 19 114/61 (78) 92 97.9 10/14/17 21:00 Room Air 10/14/17 20:00 98.9 73 20 113/72 (86) 92 98.9 10/14/17 16:58 Room Air 10/14/17 16:57 97.9 87 20 99/78 92 Room Air 97.9 10/14/17 16:57 97.8 87 20 115/73 91 Room Air 97.8 10/14/17 15:26 97.8 89 20 115/73 91 Room Air 97.8 10/14/17 15:21 98.2 90 18 114/74 92 Room Air 98.2 Intake and Output 10/14/17 10/15/17 19:00 07:00 Intake Total 0 ml 1260 ml Output Total 0 ml 600 ml Balance 0 ml 660 ml Intake Oral 0 ml 360 ml IV Total 900 ml Output Urine Total 0 ml 600 ml Laboratory Tests Test 10/14/17 15:48 10/14/17 17:10 10/15/17 07:55 White Blood Count 12.5 K/UL (4.8-10.8) H 10.9 K/UL (4.8-10.8) H Red Blood Count 4.59 M/UL (4.70-6.10) L 4.36 M/UL (4.70-6.10) L Hemoglobin 14.6 G/DL (14.2-18.0) 13.3 G/DL (14.2-18.0) L Hematocrit 41.1 % (42.0-52.0) L 39.4 % (42.0-52.0) L Mean Corpuscular Volume 90 FL (80-99) 90 FL (80-99) Mean Corpuscular Hemoglobin 31.9 PG (27.0-31.0) H 30.5 PG (27.0-31.0) Mean Corpuscular Hemoglobin Concent 35.6 G/DL (32.0-36.0) 33.7 G/DL (32.0-36.0) Red Cell Distribution Width 13.8 % (11.6-14.8) 13.6 % (11.6-14.8) Platelet Count 329 K/UL (150-450) 316 K/UL (150-450) Mean Platelet Volume 7.2 FL (6.5-10.1) 7.5 FL (6.5-10.1) Neutrophils (%) (Auto) 69.0 % (45.0-75.0) 60.9 % (45.0-75.0) Lymphocytes (%) (Auto) 16.0 % (20.0-45.0) L 20.5 % (20.0-45.0) Monocytes (%) (Auto) 10.2 % (1.0-10.0) H 10.4 % (1.0-10.0) H Eosinophils (%) (Auto) 2.7 % (0.0-3.0) 6.3 % (0.0-3.0) H Basophils (%) (Auto) 2.2 % (0.0-2.0) H 2.0 % (0.0-2.0) Sodium Level 143 MMOL/L (136-145) 142 MMOL/L (136-145) Potassium Level 3.6 MMOL/L (3.5-5.1) 3.5 MMOL/L (3.5-5.1) Chloride Level 106 MMOL/L (98-107) 108 MMOL/L (98-107) H Carbon Dioxide Level 29 MMOL/L (21-32) 27 MMOL/L (21-32) Anion Gap 8 mmol/L (5-15) 7 mmol/L (5-15) Blood Urea Nitrogen 31 mg/dL (7-18) H 21 mg/dL (7-18) H Creatinine 1.1 MG/DL (0.55-1.30) 0.8 MG/DL (0.55-1.30) Estimat Glomerular Filtration Rate mL/min (>60) mL/min (>60) Glucose Level 128 MG/DL (74-106) H 112 MG/DL (74-106) H Calcium Level 8.6 MG/DL (8.5-10.1) 8.5 MG/DL (8.5-10.1) Total Bilirubin 0.4 MG/DL (0.2-1.0) 0.2 MG/DL (0.2-1.0) Aspartate Amino Transf (AST/SGOT) 11 U/L (15-37) L 16 U/L (15-37) Alanine Aminotransferase (ALT/SGPT) 17 U/L (12-78) 17 U/L (12-78) Alkaline Phosphatase 84 U/L (46-116) 75 U/L (46-116) Total Protein 6.1 G/DL (6.4-8.2) L 5.5 G/DL (6.4-8.2) L Albumin 3.0 G/DL (3.4-5.0) L 2.6 G/DL (3.4-5.0) L Globulin 3.1 g/dL 2.9 g/dL Albumin/Globulin Ratio 1.0 (1.0-2.7) 0.9 (1.0-2.7) L Lipase 44 U/L (73-393) L 56 U/L (73-393) L Urine Color [place] Urine Appearance Slightly cloudy Urine pH 5 (4.5-8.0) Urine Specific [place] 1.015 (1.005-1.035) Urine Protein 2+ (NEGATIVE) H Urine Glucose (UA) Negative (NEGATIVE) Urine Ketones Negative (NEGATIVE) Urine Blood Negative (NEGATIVE) Urine Nitrite Negative (NEGATIVE) Urine Bilirubin 1+ (NEGATIVE) H Urine Ictotest Negative (NEGATIVE) Urine Urobilinogen 1 MG/DL (0.0-1.0) H Urine Leukocyte Esterase 1+ (NEGATIVE) H Urine RBC 0-2 /HPF (0 - 0) H Urine WBC 5-10 /HPF (0 - 0) H Urine Squamous Epithelial Cells Occasional /LPF Urine Amorphous Sediment Many /LPF (NONE) H Urine Bacteria Few /HPF (NONE) Urine Mucus Few /LPF (NONE/OCC) H Activated Partial Thromboplast Time 27 SEC (23-33) Amylase Level 29 U/L (25-115) Microbiology Date/Time Source Procedure Growth Status 10/14/17 16:23 Rectum Received Height (Feet): 5 Height (Inches): 8.00 Weight (Pounds): 175 Medications Current Medications Medications (Trade) Dose Ordered Sig/Davey Route PRN Reason Start Time Stop Time Status Last Admin Dose Admin Acetaminophen (Tylenol) 650 mg Q4H PRN ORAL fever 10/14/17 17:00 11/13/17 16:59 Al Hydroxide/Mg Hydroxide (Mylanta II) 30 ml Q6H PRN ORAL dyspepsia 10/14/17 17:00 11/13/17 16:59 Amlodipine Besylate (Norvasc) 5 mg DAILY ORAL 10/15/17 09:00 11/14/17 08:59 Clonazepam (KlonoPIN) 1 mg BID ORAL 10/14/17 18:00 10/21/17 17:59 10/15/17 09:35 Dextrose (Dextrose 50%) 25 ml STAT PRN IV Hypoglycemia 10/14/17 17:00 11/13/17 16:59 Dextrose (Dextrose 50%) 50 ml STAT PRN IV Hypoglycemia 10/14/17 17:15 11/13/17 17:14 Dextrose/Sodium Chloride 1,000 ml @ 75 mls/hr [id number] IV 10/14/17 17:00 11/13/17 16:59 10/15/17 05:43 Diphenhydramine HCl (Benadryl) 25 mg Q6H PRN ORAL Itching/Pruritis 10/14/17 17:00 11/13/17 16:59 EZETIMIBE (Zetia) 10 mg DAILY ORAL 10/15/17 09:00 11/14/17 08:59 10/15/17 09:35 Finasteride (Proscar) 5 mg DAILY ORAL 10/15/17 09:00 11/14/17 08:59 10/15/17 09:35 Heparin Sodium (Porcine) (Heparin 5000 units/ml) 5,000 units EVERY 12 HOURS SUBQ 10/14/17 21:00 11/13/17 20:59 10/15/17 09:40 Iopamidol (Isovue-300 100ml) 100 ml NOW PRN INJ Radiology Procedure 10/14/17 15:30 Lorazepam (Ativan 2mg/ml 1ml) 1 mg Q4H PRN IV agitation 10/14/17 17:00 10/21/17 16:59 Loxapine Succinate (Loxitane) 50 mg TWICE A DAY ORAL 10/15/17 09:00 11/14/17 08:59 10/15/17 09:35 Metoclopramide HCl (Reglan) 10 mg Q6H PRN IVP severe nausea 10/14/17 17:00 11/13/17 16:59 Morphine Sulfate (Morphine Sulfate) 2 mg Q4H PRN IVP severe Pain (Pain Scale 7-10) 10/14/17 17:00 10/21/17 16:59 Nitroglycerin (Ntg) 0.4 mg Q5M X 3 DOSES PRN SL Prn Chest Pain 10/14/17 17:00 11/13/17 16:59 Ondansetron HCl (Zofran) 4 mg Q6H PRN IVP Nausea & Vomiting 10/14/17 17:00 11/13/17 16:59 Pantoprazole (Protonix) 40 mg DAILY IV 10/15/17 09:00 11/14/17 08:59 10/15/17 09:34 Polyethylene Glycol (Miralax) 17 gm HSPRN PRN ORAL Constipation 10/14/17 17:00 11/13/17 16:59 Promethazine HCl (Phenergan) 12.5 mg Q6H PRN IM refractory nausea and vomiting 10/14/17 17:30 11/13/17 17:29 Promethazine HCl/ Codeine (Phenergan with Codeine) 5 ml Q6H PRN ORAL For Cough 10/15/17 08:15 11/14/17 08:14 Quetiapine Fumarate (SEROquel) 200 mg QHS ORAL 10/15/17 21:00 11/14/17 20:59 Tamsulosin HCl (Flomax) 0.4 mg DAILY ORAL 10/15/17 09:00 11/14/17 08:59 10/15/17 09:35 Temazepam (Restoril) 15 mg HSPRN PRN ORAL Insomnia 10/14/17 17:00 10/21/17 16:59 Assessment/Plan Assessment/Plan Abx: None Assessment: Mild leukocytosis, improving off abx Mild pyuria- no UTI symptoms N/v, abd pain- r/o cholecystis vs other intraabdominal pathologogy- however symptoms have now resolved JAN, mild- improving renal mass seizure disorder BPH cholelithiasis COPD HTN GERD HLD paranoid schizophrenia SNF resident Plan: -Continue to montor off abx unless finding of cholecystis on Abd us or findings of colitis on CT abd/p -f/u cx -Monitor CBC/CMP, temperatures -aspiration precautions Thank you for this consultation. Will continue to follow along with you. Discussed with Nadeen Cummins M.D. Oct 15, 2017 13:25
[2017-10-15 16:00] VITALS: BP 109/70
[2017-10-15 20:00] VITALS: BP 154/84
[2017-10-15] MEDS: QUEtiapine 200mg tab ORAL SCH (20:33)
--- NOTE | 2017-10-15 22:30 | Consultation ---
DATE OF CONSULTATION: 10/15/2017 NOTE: POOR AUDIO PSYCHOTHERAPY CONSULTATION PHYSICIAN PROGRESS NOTE TREATING ATTENDING PHYSICIAN: Yanick Fall D.O. HISTORY: The patient is a 72-year-old male who was brought to the hospital for abdominal pain, nausea and vomiting. The patient has had thoughts of irritability, anxious, poor frustration tolerance and mood lability. For these reasons, he was referred for psychotherapeutic services to assess the patient. The patient states he does not want to return back hospital even when his condition was extensive. He has been quite irritable and agitated . He denies suicidal or homicidal thoughts of ideation. Denies any auditory or visual hallucinations at this time. PAST MEDICAL HISTORY: History of hypertension, . ALLERGIES: The patient has no known drug allergies. SUBSTANCE ABUSE HISTORY: The patient denies history of alcohol use, illicit substances, or smoking cigarettes. PAST PSYCHIATRIC HISTORY: The patient has a history of schizophrenia and has been treated with psychotropic medications in the past. SOCIAL HISTORY: The patient is a 72-year-old male . MENTAL STATUS EXAMINATION: The patient is alert and oriented to person and place. His mood is anxious. Affect is labile. Thought process disorganized. Thought content delusional. He has poor attention and concentration. Poor insight, judgement and impulse control. DIAGNOSES: AXIS I Paranoid schizophrenia. PLAN: This clinician assessed the patient and assessed the patient's mental status, redirecting the patient's disorganized thoughts. . Provided the patient with supportive psychotherapy and reality orientation, encouraging the patient to participate in treatment milieu. . I would like to thank Dr. Yanick Fall and Dr. Lenny Lee for this consultation. I will be happy to follow this patient hospital. Juan Reynaga PsyD. DR: KAI JOB#: [id number] CC:
--- NOTE | 2017-10-15 22:30 | History and Physical Report ---
DATE OF ADMISSION: 10/14/2017 TIME: 11 a.m. CONSULTANTS: 1. Ana Lilia Mascorro M.D. 2. Manuel Dominguez M.D. 3. Lenny Lee M.D. 4. Russell Meza M.D. CHIEF COMPLAINT: Weakness, abdominal pain, failure to thrive and ileus. BRIEF HISTORY: This is a 72-year-old male, patient [place]. Cee[place] [facility] [place] with increased weakness and failure to thrive, and abdominal pain for about a week with nauseous and vomiting as well, diagnosed with ileus and admitted to medical floor for further treatment. The patient is feeling better, this morning actually ate and feeling a little better, no complaint. REVIEW OF SYSTEMS: No chest pain. No shortness of breath. Slight nausea and vomiting. No diarrhea. PAST MEDICAL HISTORY: Includes COPD, BPH, and confusion. PAST SURGICAL HISTORY: Gallbladder. MEDICATIONS: Seroquel, Norvasc, Zetia, Proscar, Flomax, Protonix, Loxitane, heparin, promethazine, morphine, and Zofran. ALLERGIES: Denies. SOCIAL HISTORY: Positive smoking. No alcohol. No intravenous drug use. FAMILY HISTORY: Noncontributory. PHYSICAL EXAMINATION: GENERAL: Calm in bed, oriented x2, in no acute distress. VITAL SIGNS: Temperature is 96, pulse 79, respiratory rate 22, and blood pressure 112/70. CARDIOVASCULAR: No murmur. LUNGS: Distant and clear. ABDOMEN: Bowel sounds positive. Soft, nontender, and nondistended. EXTREMITIES: Showed no cyanosis, clubbing, or edema. NEUROLOGIC: The patient moves all extremities, slightly weak. LABORATORY AND DIAGNOSTIC DATA: White count 10.9, hemoglobin and hematocrit 13/39, and platelets 316. BMP shows chloride 108, BUN 21, glucose 112. Albumin 2.6. INR is . PTT is 27. Urinalysis shows 1+ leukocyte esterase. ASSESSMENT: 1. Weakness. 2. Urinary tract infection. 3. Ileus. 4. Failure to thrive. 5. Abdominal pain. 6. Malnutrition. PLAN: 1. OT, PT, and dietary evaluation. 2. CBC and BMP in the morning. 3. GI followup. 4. Advance diet as tolerated. 5. Pain control. 6. We will add Dr. Bennett. 7. Antibiotics per Infectious Disease. Yanick Fall D.O. DR: JENY JOB#: [id number] CC:
[2017-10-16] VITALS: BP 108/68
[2017-10-16 04:00] VITALS: BP 100/52
[2017-10-16 08:00] VITALS: BP 115/67
[2017-10-16 08:45] LABS: BASOPHILS % (AUTO) 1.8 % (0.0-2.0); EOSINOPHILS % (AUTO) 6.1 % (0.0-3.0); HEMATOCRIT 41.2 % (42.0-52.0); HEMOGLOBIN 13.6 G/DL (14.2-18.0); LYMPHOCYTES % (AUTO) 28.3 % (20.0-45.0); MEAN CORPUSCULAR VOLUME 90 FL (80-99); MONOCYTES % (AUTO) 8.9 % (1.0-10.0); NEUTROPHILS % (AUTO) 54.8 % (45.0-75.0); PLATELET COUNT 329 K/UL (150-450); RED BLOOD COUNT 4.56 M/UL (4.70-6.10); RED CELL DISTRIBUTION WIDTH 13.6 % (11.6-14.8); WHITE BLOOD COUNT 9.3 K/UL (4.8-10.8)
[2017-10-16] MEDS: D5 1/2NS 1,000 ML IV SCH (09:00)
--- NOTE | 2017-10-16 09:09 | Diagnostic Imaging Report ---
Clinical Indication: Abdominal pain Technique: No oral contrast utilized, per emergency room physician request IV administration nonionic contrast. Venous phase spiral acquisition obtained through the abdomen and pelvis. Multiplanar reconstructions were generated. Total dose length product 634.66 mGycm. CTDIvol(s) 12.33 mGy. Dose reduction achieved using automated exposure control Comparison: 08/28/2017 Findings: The appendix is normal. There is colonic diverticulosis. No evidence of diverticulitis. There is diffuse mild dilatation of most of the small bowel, with some intervening areas of nondilated small bowel distally but no definite abrupt transition. Small bowel wall appears mildly thickened. This is a new finding since the previous study. The mesenteric vessels appear to be patent. No intramural gas. No free or loculated intraperitoneal gas or fluid is evident. The distal esophagus, stomach, duodenum are unremarkable. There are small fat-containing bilateral inguinal hernias again demonstrated. The gallbladder demonstrates a large gallstone. The liver, bile ducts, pancreas, spleen, adrenals are all unremarkable. No retroperitoneal or mesenteric mass or adenopathy. No pelvic mass or adenopathy. The prostate is enlarged. The bladder demonstrates equivocal mild wall thickening. Again demonstrated is an irregularly enhancing mass in the upper pole of the left kidney, measuring 3 x 1.8 cm in diameter and appearing slightly increased in size from the previous study. Bilateral renal cysts are again demonstrated. Calcification in the lower pole left renal collecting system is again demonstrated, not as evident as on the prior exam. Subcentimeter low-attenuation renal lesions are also seen on the right which are too small to characterize. The included lung bases demonstrate fibrotic changes posteriorly in the right lower lobe, as well as diffuse hyperinflation. Some scarring or atelectasis is seen in the right lung base. The bones demonstrate an ununited fracture of the left ninth rib. There is mild lumbar scoliotic deformity with secondary degenerative change Impression: Diffusely mildly dilated small bowel loops, some distal nondilated small bowel loops but no definite abrupt transition point. Findings may represent small bowel obstruction versus ileus/enteritis. Correlate with clinical findings Left renal mass, stable or perhaps slightly increased in size from previous study; as previously, concerning for renal neoplasm Colonic diverticulosis Cholelithiasis Nonobstructive left renal calculus, also previously described Prostatomegaly Equivocal bladder wall thickening, if real could indicate cystitis or hypertrophy from chronic bladder outlet obstruction Right lower lobe pulmonary fibrosis, as well as scarring and atelectasis Other findings as noted, including old ununited left fifth rib fracture, lumbar scoliosis and degenerative spondylosis, fat-containing bilateral inguinal hernias, bilateral renal cysts and too small to characterize subcentimeter low-attenuation renal lesions This agrees with the preliminary interpretation provided overnight by [facility] teleradiology service. The CT scanner at [facility] is accredited by the [employer] and the scans are performed using protocols designed to limit radiation exposure to as low as reasonably achievable to attain images of sufficient resolution adequate for diagnostic evaluation.
[2017-10-16 09:27] LABS: ALANINE AMINOTRANSFERASE 18 U/L (12-78); ALBUMIN 2.7 G/DL (3.4-5.0); ALBUMIN/GLOBULIN RATIO 0.9 (1.0-2.7); ALKALINE PHOSPHATASE 71 U/L (46-116); ANION GAP 3 mmol/L (5-15); ASPARTATE AMINO TRANSFERASE 12 U/L (15-37); BILIRUBIN,TOTAL 0.2 MG/DL (0.2-1.0); BLOOD UREA NITROGEN 15 mg/dL (7-18); CARBON DIOXIDE 31 MMOL/L (21-32); CHLORIDE 106 MMOL/L (98-107); CREATININE 0.8 MG/DL (0.55-1.30); POTASSIUM 3.8 MMOL/L (3.5-5.1); SODIUM 140 MMOL/L (136-145)
--- NOTE | 2017-10-16 10:07 | Infectious Diseases Prog Note ---
Assessment/Plan Assessment/Plan Mild leukocytosis - Resolved Mild pyuria- no UTI symptoms N/v, abd pain- r/o cholecystis vs other intraabdominal pathologogy- however symptoms have now resolved JAN, mild- improving renal mass seizure disorder BPH cholelithiasis COPD HTN GERD HLD paranoid schizophrenia SNF resident Plan: -Continue to montor off abx unless finding of cholecystis on Abd us or findings of colitis on CT abd/p -f/u cx -Monitor CBC/CMP, temperatures -aspiration precautions Thank you for this consultation. Will continue to follow along with you. Subjective Allergies: Coded Allergies: FISH LIVER OIL (Verified Allergy, Mild, 09/04/08) Subjective No acute events Afebrile Leukocytosis resolved Objective Vital Signs Last 24 Hour Vital Signs Date Time Temp Pulse Resp B/P (MAP) Pulse Ox O2 Delivery O2 Flow Rate FiO2 10/16/17 04:00 97.1 67 20 100/52 (68) 94 97.1 10/16/17 00:00 98.2 73 21 108/68 (81) 93 98.2 10/15/17 21:00 Room Air 10/15/17 20:00 98.0 61 19 154/84 (107) 95 98.0 10/15/17 16:00 96.0 62 18 109/70 (83) 95 96.0 10/15/17 12:00 98.0 81 20 118/72 (87) 95 98.0 Height (Feet): 5 Height (Inches): 8.00 Weight (Pounds): 175 Objective General Appearance: NAD, A/O x 3 HEENT: normocephalic, atraumatic, anicteric, mucous membranes moist Respiratory/Chest: lungs clear, normal breath sounds, no respiratory distress Cardiovascular/Chest: normal rate, no M/R/G Abdomen: normal bowel sounds, non tender, soft Extremities: normal range of motion, non-tender Neurologic: alert, responsive Microbiology Date/Time Source Procedure Growth Status 10/14/17 16:23 Rectum VRE Culture - Final NO VANCOMYCIN RESISTANT ENTEROCOCCUS ... Complete Laboratory Tests Test 10/16/17 08:30 White Blood Count 9.3 K/UL (4.8-10.8) Red Blood Count 4.56 M/UL (4.70-6.10) L Hemoglobin 13.6 G/DL (14.2-18.0) L Hematocrit 41.2 % (42.0-52.0) L Mean Corpuscular Volume 90 FL (80-99) Mean Corpuscular Hemoglobin 29.9 PG (27.0-31.0) Mean Corpuscular Hemoglobin Concent 33.0 G/DL (32.0-36.0) Red Cell Distribution Width 13.6 % (11.6-14.8) Platelet Count 329 K/UL (150-450) Mean Platelet Volume 7.6 FL (6.5-10.1) Neutrophils (%) (Auto) 54.8 % (45.0-75.0) Lymphocytes (%) (Auto) 28.3 % (20.0-45.0) Monocytes (%) (Auto) 8.9 % (1.0-10.0) Eosinophils (%) (Auto) 6.1 % (0.0-3.0) H Basophils (%) (Auto) 1.8 % (0.0-2.0) Sodium Level 140 MMOL/L (136-145) Potassium Level 3.8 MMOL/L (3.5-5.1) Chloride Level 106 MMOL/L (98-107) Carbon Dioxide Level 31 MMOL/L (21-32) Anion Gap 3 mmol/L (5-15) L Blood Urea Nitrogen 15 mg/dL (7-18) Creatinine 0.8 MG/DL (0.55-1.30) Estimat Glomerular Filtration Rate mL/min (>60) Glucose Level 110 MG/DL (74-106) H Calcium Level 9.0 MG/DL (8.5-10.1) Total Bilirubin 0.2 MG/DL (0.2-1.0) Aspartate Amino Transf (AST/SGOT) 12 U/L (15-37) L Alanine Aminotransferase (ALT/SGPT) 18 U/L (12-78) Alkaline Phosphatase 71 U/L (46-116) Total Protein 5.7 G/DL (6.4-8.2) L Albumin 2.7 G/DL (3.4-5.0) L Globulin 3.0 g/dL Albumin/Globulin Ratio 0.9 (1.0-2.7) L Current Medications Medications (Trade) Dose Ordered Sig/Davey Route PRN Reason Start Time Stop Time Status Last Admin Dose Admin Acetaminophen (Tylenol) 650 mg Q4H PRN ORAL fever 10/14/17 17:00 11/13/17 16:59 Al Hydroxide/Mg Hydroxide (Mylanta II) 30 ml Q6H PRN ORAL dyspepsia 10/14/17 17:00 11/13/17 16:59 Amlodipine Besylate (Norvasc) 5 mg DAILY ORAL 10/15/17 09:00 11/14/17 08:59 Clonazepam (KlonoPIN) 1 mg BID ORAL 10/14/17 18:00 10/21/17 17:59 10/15/17 17:13 Dextrose (Dextrose 50%) 25 ml STAT PRN IV Hypoglycemia 10/14/17 17:00 11/13/17 16:59 Dextrose (Dextrose 50%) 50 ml STAT PRN IV Hypoglycemia 10/14/17 17:15 11/13/17 17:14 Dextrose/Sodium Chloride 1,000 ml @ 75 mls/hr [id number] IV 10/14/17 17:00 11/13/17 16:59 10/15/17 05:43 Diphenhydramine HCl (Benadryl) 25 mg Q6H PRN ORAL Itching/Pruritis 10/14/17 17:00 11/13/17 16:59 EZETIMIBE (Zetia) 10 mg DAILY ORAL 10/15/17 09:00 11/14/17 08:59 10/15/17 09:35 Finasteride (Proscar) 5 mg DAILY ORAL 10/15/17 09:00 11/14/17 08:59 10/15/17 09:35 Heparin Sodium (Porcine) (Heparin 5000 units/ml) 5,000 units EVERY 12 HOURS SUBQ 10/14/17 21:00 11/13/17 20:59 10/15/17 20:34 Iopamidol (Isovue-300 100ml) 100 ml NOW PRN INJ Radiology Procedure 10/14/17 15:30 Lorazepam (Ativan 2mg/ml 1ml) 1 mg Q4H PRN IV agitation 10/14/17 17:00 10/21/17 16:59 Loxapine Succinate (Loxitane) 50 mg TWICE A DAY ORAL 10/15/17 09:00 11/14/17 08:59 10/15/17 17:13 Metoclopramide HCl (Reglan) 10 mg Q6H PRN IVP severe nausea 10/14/17 17:00 11/13/17 16:59 Morphine Sulfate (Morphine Sulfate) 2 mg Q4H PRN IVP severe Pain (Pain Scale 7-10) 10/14/17 17:00 10/21/17 16:59 Nitroglycerin (Ntg) 0.4 mg Q5M X 3 DOSES PRN SL Prn Chest Pain 10/14/17 17:00 11/13/17 16:59 Ondansetron HCl (Zofran) 4 mg Q6H PRN IVP Nausea & Vomiting 10/14/17 17:00 11/13/17 16:59 Pantoprazole (Protonix) 40 mg DAILY IV 10/15/17 09:00 11/14/17 08:59 10/15/17 09:34 Polyethylene Glycol (Miralax) 17 gm HSPRN PRN ORAL Constipation 10/14/17 17:00 11/13/17 16:59 Promethazine HCl (Phenergan) 12.5 mg Q6H PRN IM refractory nausea and vomiting 10/14/17 17:30 11/13/17 17:29 Promethazine HCl/ Codeine (Phenergan with Codeine) 5 ml Q6H PRN ORAL For Cough 10/15/17 08:15 11/14/17 08:14 Quetiapine Fumarate (SEROquel) 200 mg QHS ORAL 10/15/17 21:00 11/14/17 20:59 10/15/17 20:33 Tamsulosin HCl (Flomax) 0.4 mg DAILY ORAL 10/15/17 09:00 11/14/17 08:59 10/15/17 09:35 Temazepam (Restoril) 15 mg HSPRN PRN ORAL Insomnia 10/14/17 17:00 10/21/17 16:59 Harshad Bridges MD Oct 16, 2017 10:07
[2017-10-16] MEDS: Pantoprazole Inj IV SCH (10:09)
[2017-10-16] MEDS: Tamsulosin 0.4mg cap ORAL SCH (10:09)
[2017-10-16] MEDS: LOXAPINE 25 MG ORAL SCH ×2 (10:09→17:37)
[2017-10-16] MEDS: Heparin 5000 units/ml inj SUBQ SCH ×2 (10:18→20:22)
[2017-10-16 12:00] VITALS: BP 113/60
--- NOTE | 2017-10-16 13:38 | Pulmonology Progress Note ---
Assessment/Plan Problems: (1) Weakness (2) Abdominal pain (3) Altered mental status (4) Sepsis (5) Encephalopathy (6) BPH (benign prostatic hyperplasia) (7) Anemia Assessment/Plan wbc lower check electrolytes GI evaluation symptomatic treatment dvt prophylaxis. Subjective ROS Limited/Unobtainable: No Constitutional: Reports: no symptoms HEENT: Repors: no symptoms Respiratory: Reports: no symptoms Allergies: Coded Allergies: FISH LIVER OIL (Verified Allergy, Mild, 09/04/08) Objective Last 24 Hour Vital Signs Date Time Temp Pulse Resp B/P (MAP) Pulse Ox O2 Delivery O2 Flow Rate FiO2 10/16/17 09:00 67 100/52 10/16/17 09:00 Room Air 10/16/17 08:00 97.9 78 18 115/67 (83) 96 97.9 10/16/17 04:00 97.1 67 20 100/52 (68) 94 97.1 10/16/17 00:00 98.2 73 21 108/68 (81) 93 98.2 10/15/17 21:00 Room Air 10/15/17 20:00 98.0 61 19 154/84 (107) 95 98.0 10/15/17 16:00 96.0 62 18 109/70 (83) 95 96.0 Intake and Output 10/15/17 10/16/17 19:00 07:00 Intake Total 2000 ml 75 ml Output Total 800 ml Balance 2000 ml -725 ml Intake Oral 1100 ml IV Total 900 ml 75 ml Output Urine Total 800 ml # Voids 6 General Appearance: WD/WN HEENT: normocephalic, atraumatic Respiratory/Chest: chest wall non-tender, lungs clear Cardiovascular: normal peripheral pulses, normal rate Abdomen: normal bowel sounds, soft, non tender Extremities: no cyanosis Skin: no lesions Microbiology Date/Time Source Procedure Growth Status 10/14/17 16:23 Nasal Nares MRSA Culture - Final NO METHICILLIN RESISTANT STAPH AUREUS... Complete 10/14/17 16:23 Rectum VRE Culture - Final NO VANCOMYCIN RESISTANT ENTEROCOCCUS ... Complete Laboratory Tests 10/16/17 08:30: White Blood Count 9.3, Red Blood Count 4.56L, Hemoglobin 13.6L, Hematocrit 41.2L , Mean Corpuscular Volume 90, Mean Corpuscular Hemoglobin 29.9, Mean Corpuscular Hemoglobin Concent 33.0, Red Cell Distribution Width 13.6, Platelet Count 329, Mean Platelet Volume 7.6, Neutrophils (%) (Auto) 54.8, Lymphocytes (% ) (Auto) 28.3, Monocytes (%) (Auto) 8.9, Eosinophils (%) (Auto) 6.1H, Basophils (%) (Auto) 1.8, Sodium Level 140, Potassium Level 3.8, Chloride Level 106, Carbon Dioxide Level 31, Anion Gap 3L, Blood Urea Nitrogen 15, Creatinine 0.8, Estimat Glomerular Filtration Rate , Glucose Level 110H, Calcium Level 9.0, Total Bilirubin 0.2, Aspartate Amino Transf (AST/SGOT) 12L, Alanine Aminotransferase (ALT/SGPT) 18, Alkaline Phosphatase 71, Total Protein 5.7L, Albumin 2.7L, Globulin 3.0, Albumin/Globulin Ratio 0.9L Current Medications Medications (Trade) Dose Ordered Sig/Davey Route PRN Reason Start Time Stop Time Status Last Admin Dose Admin Acetaminophen (Tylenol) 650 mg Q4H PRN ORAL fever 10/14/17 17:00 11/13/17 16:59 Al Hydroxide/Mg Hydroxide (Mylanta II) 30 ml Q6H PRN ORAL dyspepsia 10/14/17 17:00 11/13/17 16:59 Amlodipine Besylate (Norvasc) 5 mg DAILY ORAL 10/15/17 09:00 11/14/17 08:59 Clonazepam (KlonoPIN) 1 mg BID ORAL 10/14/17 18:00 10/21/17 17:59 10/16/17 10:10 Dextrose (Dextrose 50%) 25 ml STAT PRN IV Hypoglycemia 10/14/17 17:00 11/13/17 16:59 Dextrose (Dextrose 50%) 50 ml STAT PRN IV Hypoglycemia 10/14/17 17:15 11/13/17 17:14 Dextrose/Sodium Chloride 1,000 ml @ 75 mls/hr [id number] IV 10/14/17 17:00 11/13/17 16:59 10/15/17 05:43 Diphenhydramine HCl (Benadryl) 25 mg Q6H PRN ORAL Itching/Pruritis 10/14/17 17:00 11/13/17 16:59 EZETIMIBE (Zetia) 10 mg DAILY ORAL 10/15/17 09:00 11/14/17 08:59 10/16/17 10:09 Finasteride (Proscar) 5 mg DAILY ORAL 10/15/17 09:00 11/14/17 08:59 10/16/17 10:09 Heparin Sodium (Porcine) (Heparin 5000 units/ml) 5,000 units EVERY 12 HOURS SUBQ 10/14/17 21:00 11/13/17 20:59 10/16/17 10:18 Iopamidol (Isovue-300 100ml) 100 ml NOW PRN INJ Radiology Procedure 10/14/17 15:30 Lorazepam (Ativan 2mg/ml 1ml) 1 mg Q4H PRN IV agitation 10/14/17 17:00 10/21/17 16:59 Loxapine Succinate (Loxitane) 50 mg TWICE A DAY ORAL 10/15/17 09:00 11/14/17 08:59 10/16/17 10:09 Metoclopramide HCl (Reglan) 10 mg Q6H PRN IVP severe nausea 10/14/17 17:00 11/13/17 16:59 Morphine Sulfate (Morphine Sulfate) 2 mg Q4H PRN IVP severe Pain (Pain Scale 7-10) 10/14/17 17:00 10/21/17 16:59 Nitroglycerin (Ntg) 0.4 mg Q5M X 3 DOSES PRN SL Prn Chest Pain 10/14/17 17:00 11/13/17 16:59 Ondansetron HCl (Zofran) 4 mg Q6H PRN IVP Nausea & Vomiting 10/14/17 17:00 11/13/17 16:59 Pantoprazole (Protonix) 40 mg DAILY IV 10/15/17 09:00 11/14/17 08:59 10/16/17 10:09 Polyethylene Glycol (Miralax) 17 gm HSPRN PRN ORAL Constipation 10/14/17 17:00 11/13/17 16:59 Promethazine HCl (Phenergan) 12.5 mg Q6H PRN IM refractory nausea and vomiting 10/14/17 17:30 11/13/17 17:29 Promethazine HCl/ Codeine (Phenergan with Codeine) 5 ml Q6H PRN ORAL For Cough 10/15/17 08:15 11/14/17 08:14 Quetiapine Fumarate (SEROquel) 200 mg QHS ORAL 10/15/17 21:00 11/14/17 20:59 10/15/17 20:33 Tamsulosin HCl (Flomax) 0.4 mg DAILY ORAL 10/15/17 09:00 11/14/17 08:59 10/16/17 10:09 Temazepam (Restoril) 15 mg HSPRN PRN ORAL Insomnia 10/14/17 17:00 10/21/17 16:59 Ana Lilia Mascorro MD Oct 16, 2017 13:38
--- NOTE | 2017-10-16 13:58 | GI Progress Note ---
Assessment/Plan Problems: (1) Abdominal pain ICD Codes: R10.9 - Unspecified abdominal pain SNOMED: 10757562 Qualifiers: Qualified Codes: R10.84 - Generalized abdominal pain (2) Altered mental status ICD Codes: R41.82 - Altered mental status, unspecified SNOMED: 003178388 (3) Encephalopathy ICD Codes: G93.40 - Encephalopathy, unspecified SNOMED: 69493806, 785499703 (4) Weakness ICD Codes: R53.1 - Weakness SNOMED: 54503509 (5) Anemia ICD Codes: D64.9 - Anemia, unspecified SNOMED: 440819339 Status: stable Status Narrative Discussed with Dr. Dominguez. Assessment/Plan possible history of renal CA N/V resolved CT AP reviewed >> SBO vs ileus >> pt had BM yesterday, abdomen soft dc planning okay to advance diet symptomatic treatment zofran prn electrolyte correction fu labs outpatient GI procedures The patient was seen and examined at bedside and all new and available data was reviewed in the patients chart. I agree with the above findings, impression and plan. (Patient seen earlier today. Signature stamp does not reflect patient encounter time.). - Manuel Dominguez MD Subjective Gastrointestinal/Abdominal: Reports: no symptoms Subjective wants to go home denies any abdominal pain, N/V/D had BM yesterday Objective Last 24 Hour Vital Signs Date Time Temp Pulse Resp B/P (MAP) Pulse Ox O2 Delivery O2 Flow Rate FiO2 10/16/17 12:00 97.4 63 18 113/60 (77) 92 97.4 10/16/17 09:00 67 100/52 10/16/17 09:00 Room Air 10/16/17 08:00 97.9 78 18 115/67 (83) 96 97.9 10/16/17 04:00 97.1 67 20 100/52 (68) 94 97.1 10/16/17 00:00 98.2 73 21 108/68 (81) 93 98.2 10/15/17 21:00 Room Air 10/15/17 20:00 98.0 61 19 154/84 (107) 95 98.0 10/15/17 16:00 96.0 62 18 109/70 (83) 95 96.0 Intake and Output 10/15/17 10/16/17 19:00 07:00 Intake Total 2000 ml 75 ml Output Total 800 ml Balance 2000 ml -725 ml Intake Oral 1100 ml IV Total 900 ml 75 ml Output Urine Total 800 ml # Voids 6 Laboratory Tests Test 10/16/17 08:30 White Blood Count 9.3 K/UL (4.8-10.8) Red Blood Count 4.56 M/UL (4.70-6.10) L Hemoglobin 13.6 G/DL (14.2-18.0) L Hematocrit 41.2 % (42.0-52.0) L Mean Corpuscular Volume 90 FL (80-99) Mean Corpuscular Hemoglobin 29.9 PG (27.0-31.0) Mean Corpuscular Hemoglobin Concent 33.0 G/DL (32.0-36.0) Red Cell Distribution Width 13.6 % (11.6-14.8) Platelet Count 329 K/UL (150-450) Mean Platelet Volume 7.6 FL (6.5-10.1) Neutrophils (%) (Auto) 54.8 % (45.0-75.0) Lymphocytes (%) (Auto) 28.3 % (20.0-45.0) Monocytes (%) (Auto) 8.9 % (1.0-10.0) Eosinophils (%) (Auto) 6.1 % (0.0-3.0) H Basophils (%) (Auto) 1.8 % (0.0-2.0) Sodium Level 140 MMOL/L (136-145) Potassium Level 3.8 MMOL/L (3.5-5.1) Chloride Level 106 MMOL/L (98-107) Carbon Dioxide Level 31 MMOL/L (21-32) Anion Gap 3 mmol/L (5-15) L Blood Urea Nitrogen 15 mg/dL (7-18) Creatinine 0.8 MG/DL (0.55-1.30) Estimat Glomerular Filtration Rate mL/min (>60) Glucose Level 110 MG/DL (74-106) H Calcium Level 9.0 MG/DL (8.5-10.1) Total Bilirubin 0.2 MG/DL (0.2-1.0) Aspartate Amino Transf (AST/SGOT) 12 U/L (15-37) L Alanine Aminotransferase (ALT/SGPT) 18 U/L (12-78) Alkaline Phosphatase 71 U/L (46-116) Total Protein 5.7 G/DL (6.4-8.2) L Albumin 2.7 G/DL (3.4-5.0) L Globulin 3.0 g/dL Albumin/Globulin Ratio 0.9 (1.0-2.7) L Height (Feet): 5 Height (Inches): 8.00 Weight (Pounds): 175 General Appearance: WD/WN, no apparent distress, alert Cardiovascular: normal rate Respiratory/Chest: normal breath sounds, no respiratory distress Abdominal Exam: normal bowel sounds, non tender, soft Extremities: normal range of motion, non-tender Sami Amaro NP Oct 16, 2017 13:58
--- NOTE | 2017-10-16 14:42 | Diagnostic Imaging Report ---
Indication: Abdominal pain Technique: Pedraza-scale and duplex images of the upper abdomen were obtained Comparison: Abdomen CT dated 10/14/2017 Findings: Gallbladder demonstrates gallstones. The gallbladder wall is thickened, measuring up to 4 mm thick Sonographic Ch's sign is negative. Common bile duct measures 4 mm in diameter. No intrahepatic biliary ductal dilatation. Liver demonstrates normal echogenicity, no focal abnormality. Portal vein and hepatic veins are patent. Pancreas is unremarkable. Spleen is unremarkable. Left kidney measures 10.3 cm in length. Right kidney measures 11.5 cm length. Both kidneys demonstrate normal echogenicity. There is no hydronephrosis. The left kidney demonstrates a 2 mm calculus in the renal sinus. 2.6 x 2.3 cm solid mass is seen in the upper pole, corresponding to abnormality described on recent CT scan. There are also cysts in the left kidney. The right kidney demonstrates what appears to be a calculus in the interpolar region, although this is probably an artifact as no corresponding abnormality is demonstrated on recent CT. Upper pole cyst in the right kidney described on recent CT is not sonographically evident . Non-aneurysmal abdominal aorta . Impression: Cholelithiasis. Mild gallbladder wall thickening, raises possibility of acute cholecystitis. Consider hepatobiliary nuclear scan for further evaluation if there is high clinical suspicion Negative for biliary ductal dilatation 2.6 x 2.3 cm solid left renal mass, corresponding to CT abnormality and concerning for renal cell carcinoma Nonobstructive left renal calculus. Apparent right renal calculus is probably an artifact
[2017-10-16 16:30] VITALS: BP 118/62
[2017-10-16 20:00] VITALS: BP 137/83
[2017-10-16] MEDS: QUEtiapine 200mg tab ORAL SCH (20:21)
--- NOTE | 2017-10-16 21:08 | General Progress Note ---
Assessment/Plan Problem List: (1) Bladder tumor ICD Codes: D49.4 - Neoplasm of unspecified behavior of bladder SNOMED: 508113139 (2) Weakness ICD Codes: R53.1 - Weakness SNOMED: 72582756 (3) Abdominal pain ICD Codes: R10.9 - Unspecified abdominal pain SNOMED: 87849600 Qualifiers: Qualified Codes: R10.84 - Generalized abdominal pain (4) BPH (benign prostatic hyperplasia) ICD Codes: N40.0 - Enlarged prostate without lower urinary tract symptoms SNOMED: 291540794, 422140216 Status: progressing Assessment/Plan afebrile no acute events no v/n/d dc in am Subjective ROS Limited/Unobtainable: Yes Allergies: Coded Allergies: FISH LIVER OIL (Verified Allergy, Mild, 09/04/08) Objective Last 24 Hour Vital Signs Date Time Temp Pulse Resp B/P (MAP) Pulse Ox O2 Delivery O2 Flow Rate FiO2 10/16/17 16:30 98.2 66 20 118/62 (80) 95 98.2 10/16/17 12:00 97.4 63 18 113/60 (77) 92 97.4 10/16/17 09:00 67 100/52 10/16/17 09:00 Room Air 10/16/17 08:00 97.9 78 18 115/67 (83) 96 97.9 10/16/17 04:00 97.1 67 20 100/52 (68) 94 97.1 10/16/17 00:00 98.2 73 21 108/68 (81) 93 98.2 Intake and Output 10/15/17 10/16/17 19:00 07:00 Intake Total 2000 ml 75 ml Output Total 800 ml Balance 2000 ml -725 ml Intake Oral 1100 ml IV Total 900 ml 75 ml Output Urine Total 800 ml # Voids 6 Laboratory Tests 10/16/17 08:30: White Blood Count 9.3, Red Blood Count 4.56L, Hemoglobin 13.6L, Hematocrit 41.2L , Mean Corpuscular Volume 90, Mean Corpuscular Hemoglobin 29.9, Mean Corpuscular Hemoglobin Concent 33.0, Red Cell Distribution Width 13.6, Platelet Count 329, Mean Platelet Volume 7.6, Neutrophils (%) (Auto) 54.8, Lymphocytes (% ) (Auto) 28.3, Monocytes (%) (Auto) 8.9, Eosinophils (%) (Auto) 6.1H, Basophils (%) (Auto) 1.8, Sodium Level 140, Potassium Level 3.8, Chloride Level 106, Carbon Dioxide Level 31, Anion Gap 3L, Blood Urea Nitrogen 15, Creatinine 0.8, Estimat Glomerular Filtration Rate , Glucose Level 110H, Calcium Level 9.0, Total Bilirubin 0.2, Aspartate Amino Transf (AST/SGOT) 12L, Alanine Aminotransferase (ALT/SGPT) 18, Alkaline Phosphatase 71, Total Protein 5.7L, Albumin 2.7L, Globulin 3.0, Albumin/Globulin Ratio 0.9L Height (Feet): 5 Height (Inches): 8.00 Weight (Pounds): 175 Neck: supple Cardiovascular: normal rate Respiratory/Chest: lungs clear Abdomen: soft Saida Cee MD Oct 16, 2017 21:08
[2017-10-17] VITALS: BP 99/51
[2017-10-17 04:00] VITALS: BP 100/64
[2017-10-17 08:00] VITALS: BP 117/70
[2017-10-17] MEDS: Heparin 5000 units/ml inj SUBQ SCH (09:00)
[2017-10-17] MEDS: LOXAPINE 25 MG ORAL SCH (09:16)
[2017-10-17] MEDS: Tamsulosin 0.4mg cap ORAL SCH (09:16)
[2017-10-17 12:00] VITALS: BP 118/51
--- NOTE | 2017-10-17 13:15 | Progress Note ---
DATE: 10/16/2017 SUBJECTIVE: This patient is a 72-year-old male patient with weakness and vomiting. He has some confusion, disorganized thought process, and mood lability, but the patient has diagnosis of paranoid schizophrenia. He has weakness and vomiting. 00:27 increased mood lability, agitation, psychosis, and altered mental status. MENTAL STATUS EXAMINATION: This is a 72-year-old male. Appearance is disheveled. Attitude, irritable and agitated. Affect guarded and restricted. Intellect poor. Mood is depressed and anxious. Motor activity, psychomotor agitation. Attention span is poor. Orientation x2. Speech is pressured. Thought process, disorganized and illogical. Insight and judgment are poor. DIAGNOSIS: Paranoid schizophrenia with acute exacerbation. PLAN: Ativan 1 p.r.n. anxiety and agitation every six hours as needed, 01:00 mg twice a day and Seroquel 200 mg at bedtime. 01:12. A 20 minutes of cognitive behavior therapy was provided today. During that 20-minute of cognitive behavior therapy session, 01:19 identify the patient's negative thoughts to help him to convert those thoughts to more positive to reduce depression and suicidality. Chart was reviewed. Discussed with staff. The patient was seen and assessed at bedside. He is unable to 01:31 today. Lenny Lee M.D. DR: SHANELL JOB#: [id number] CC:
--- NOTE | 2017-10-17 13:36 | Infectious Diseases Prog Note ---
Assessment/Plan Assessment/Plan Mild leukocytosis - Resolved Mild pyuria- no UTI symptoms N/v, abd pain- r/o cholecystis vs other intraabdominal pathologogy- however symptoms have now resolved JAN, mild- improving renal mass seizure disorder BPH cholelithiasis COPD HTN GERD HLD paranoid schizophrenia SNF resident Plan: -Continue to montor off abx as patient with out sign of infection. -f/u cx -Monitor CBC/CMP, temperatures -aspiration precautions Thank you for this consultation. Will continue to follow along with you. Subjective Allergies: Coded Allergies: FISH LIVER OIL (Verified Allergy, Mild, 09/04/08) Subjective D/C'd before I could see him Objective Vital Signs Last 24 Hour Vital Signs Date Time Temp Pulse Resp B/P (MAP) Pulse Ox O2 Delivery O2 Flow Rate FiO2 10/17/17 12:00 97.2 92 19 118/51 (73) 93 97.2 10/17/17 09:16 75 117/70 10/17/17 08:45 Room Air 10/17/17 08:00 97.0 75 20 117/70 (86) 92 97.0 10/17/17 04:00 98.8 56 18 100/64 (76) 94 98.8 10/17/17 00:00 97.4 60 20 99/51 (67) 93 97.4 10/16/17 21:00 Room Air 10/16/17 20:00 97.9 62 20 137/83 (101) 94 97.9 10/16/17 16:30 98.2 66 20 118/62 (80) 95 98.2 Height (Feet): 5 Height (Inches): 8.00 Weight (Pounds): 141 Objective D/C'd before I could see him Microbiology Date/Time Source Procedure Growth Status 10/14/17 16:23 Nasal Nares MRSA Culture - Final NO METHICILLIN RESISTANT STAPH AUREUS... Complete 10/14/17 16:23 Rectum - Final NO CARBAPENEM-RESISTANT ENTEROBACTERI... Complete 10/14/17 16:23 Rectum VRE Culture - Final NO VANCOMYCIN RESISTANT ENTEROCOCCUS ... Complete Current Medications Medications (Trade) Dose Ordered Sig/Davey Route PRN Reason Start Time Stop Time Status Last Admin Dose Admin Acetaminophen (Tylenol) 650 mg Q4H PRN ORAL fever 10/14/17 17:00 11/13/17 16:59 Al Hydroxide/Mg Hydroxide (Mylanta II) 30 ml Q6H PRN ORAL dyspepsia 10/14/17 17:00 11/13/17 16:59 Amlodipine Besylate (Norvasc) 5 mg DAILY ORAL 10/15/17 09:00 11/14/17 08:59 10/17/17 09:16 Clonazepam (KlonoPIN) 1 mg BID ORAL 10/14/17 18:00 10/21/17 17:59 10/17/17 09:16 Dextrose (Dextrose 50%) 25 ml STAT PRN IV Hypoglycemia 10/14/17 17:00 11/13/17 16:59 Dextrose (Dextrose 50%) 50 ml STAT PRN IV Hypoglycemia 10/14/17 17:15 11/13/17 17:14 Diphenhydramine HCl (Benadryl) 25 mg Q6H PRN ORAL Itching/Pruritis 10/14/17 17:00 11/13/17 16:59 EZETIMIBE (Zetia) 10 mg DAILY ORAL 10/15/17 09:00 11/14/17 08:59 10/17/17 09:16 Finasteride (Proscar) 5 mg DAILY ORAL 10/15/17 09:00 11/14/17 08:59 10/17/17 09:16 Heparin Sodium (Porcine) (Heparin 5000 units/ml) 5,000 units EVERY 12 HOURS SUBQ 10/14/17 21:00 11/13/17 20:59 10/16/17 20:22 Iopamidol (Isovue-300 100ml) 100 ml NOW PRN INJ Radiology Procedure 10/14/17 15:30 Lorazepam (Ativan 2mg/ml 1ml) 1 mg Q4H PRN IV agitation 10/14/17 17:00 10/21/17 16:59 Loxapine Succinate (Loxitane) 50 mg TWICE A DAY ORAL 10/15/17 09:00 11/14/17 08:59 10/17/17 09:16 Metoclopramide HCl (Reglan) 10 mg Q6H PRN IVP severe nausea 10/14/17 17:00 11/13/17 16:59 Morphine Sulfate (Morphine Sulfate) 2 mg Q4H PRN IVP severe Pain (Pain Scale 7-10) 10/14/17 17:00 10/21/17 16:59 Nitroglycerin (Ntg) 0.4 mg Q5M X 3 DOSES PRN SL Prn Chest Pain 10/14/17 17:00 11/13/17 16:59 Ondansetron HCl (Zofran) 4 mg Q6H PRN IVP Nausea & Vomiting 10/14/17 17:00 11/13/17 16:59 Pantoprazole (Protonix) 40 mg DAILY ORAL 10/17/17 09:00 11/16/17 08:59 10/17/17 09:16 Polyethylene Glycol (Miralax) 17 gm HSPRN PRN ORAL Constipation 10/14/17 17:00 11/13/17 16:59 Promethazine HCl (Phenergan) 12.5 mg Q6H PRN IM refractory nausea and vomiting 10/14/17 17:30 11/13/17 17:29 Promethazine HCl/ Codeine (Phenergan with Codeine) 5 ml Q6H PRN ORAL For Cough 10/15/17 08:15 11/14/17 08:14 Quetiapine Fumarate (SEROquel) 200 mg QHS ORAL 10/15/17 21:00 11/14/17 20:59 10/16/17 20:21 Tamsulosin HCl (Flomax) 0.4 mg DAILY ORAL 10/15/17 09:00 11/14/17 08:59 10/17/17 09:16 Temazepam (Restoril) 15 mg HSPRN PRN ORAL Insomnia 10/14/17 17:00 10/21/17 16:59 Harshad Bridges MD Oct 17, 2017 13:36
--- NOTE | 2017-10-17 13:37 | GI Progress Note ---
Assessment/Plan Problems: (1) Abdominal pain ICD Codes: R10.9 - Unspecified abdominal pain SNOMED: 42898860 Qualifiers: Qualified Codes: R10.84 - Generalized abdominal pain (2) Altered mental status ICD Codes: R41.82 - Altered mental status, unspecified SNOMED: 654015471 (3) Encephalopathy ICD Codes: G93.40 - Encephalopathy, unspecified SNOMED: 81274789, 245442629 (4) Weakness ICD Codes: R53.1 - Weakness SNOMED: 55177477 (5) Anemia ICD Codes: D64.9 - Anemia, unspecified SNOMED: 605324457 Status: stable Status Narrative Discussed with Dr. Dominguez. Assessment/Plan possible history of renal CA N/V resolved CT AP reviewed >> SBO vs ileus >> pt had BM yesterday, abdomen soft dc planning okay to advance diet symptomatic treatment zofran prn electrolyte correction fu labs outpatient GI procedures The patient was seen and examined at bedside and all new and available data was reviewed in the patients chart. I agree with the above findings, impression and plan. (Patient seen earlier today. Signature stamp does not reflect patient encounter time.). - Manuel Dominguez MD Subjective Subjective wants to go home denies any abdominal pain, N/V/D had BM yesterday Objective Last 24 Hour Vital Signs Date Time Temp Pulse Resp B/P (MAP) Pulse Ox O2 Delivery O2 Flow Rate FiO2 10/17/17 12:00 97.2 92 19 118/51 (73) 93 97.2 10/17/17 09:16 75 117/70 10/17/17 08:45 Room Air 10/17/17 08:00 97.0 75 20 117/70 (86) 92 97.0 10/17/17 04:00 98.8 56 18 100/64 (76) 94 98.8 10/17/17 00:00 97.4 60 20 99/51 (67) 93 97.4 10/16/17 21:00 Room Air 10/16/17 20:00 97.9 62 20 137/83 (101) 94 97.9 10/16/17 16:30 98.2 66 20 118/62 (80) 95 98.2 Intake and Output 10/16/17 10/17/17 19:00 07:00 Intake Total 480 ml 400 ml Output Total 1500 ml Balance -1020 ml 400 ml Intake Oral 480 ml Other 400 ml Output Urine Total 1500 ml # Voids 4 Height (Feet): 5 Height (Inches): 8.00 Weight (Pounds): 141 General Appearance: WD/WN, no apparent distress, alert Cardiovascular: normal rate Respiratory/Chest: normal breath sounds, no respiratory distress Abdominal Exam: normal bowel sounds, non tender, soft Extremities: normal range of motion, non-tender Sami Amaro NP Oct 17, 2017 13:37
--- NOTE | 2017-10-17 17:00 | Consultation ---
DATE OF CONSULTATION: 10/17/2017 CONSULTING PHYSICIAN: Lenny Lee M.D. HISTORY OF PRESENT ILLNESS: The patient is a 72-year-old male patient who this patient has disorganized thought process, mood lability, worsened by stress with medical illness. That is why, daily psychiatric consultation. MENTAL STATUS EXAMINATION: This is a 72-year-old male. Appearance disheveled. Attitude is irritable and agitated. Affect guarded and restricted. Intellect poor. Mood depressed and anxious. Motor activity, psychomotor agitation. Attention span is poor. Orientation x2. Speech is pressured. Thought process, disorganized and illogical. Thought content, auditory hallucinations and paranoid delusions. Insight and judgement is poor. DIAGNOSIS: Schizoaffective bipolar type. PLAN: Treat him with Seroquel 200 mg at bedtime and loxapine 50 mg twice a day, 1 mg q.4 h. p.r.n. anxiety and agitation. Provided 20 minutes of cognitive behavioral therapy to minimize the patient lot of negative thoughts, help him to convert those to more positive thoughts using certain techniques. Chart reviewed. Discussed with staff. Seen and assessed at bedside. Lenyn Lee M.D. DR: JACOBO JOB#: [id number] CC:
--- NOTE | 2017-10-18 11:03 | Discharge Summary ---
Discharge Summary Discharge Summary _ DATE OF ADMISSION: 10/14/2017 DATE OF DISCHARGE: 10/17/2017 CONSULTANTS: Dr. Lenny Reynaga BRIEF HOSPITAL COURSE: Patient is a 72-year-old male, [place] [facility] [place] due to increased weakness and failure to thrive, and abdominal pain for about a week with nausea and vomiting. Patient was complaining of 10 out of 10 dull abdominal pain, generalized in the abdomen and nonradiating. He denied chest pain or shortness of breath. Patient has extensive psychiatric history, COPD and hypertension. On evaluation at ED, vital signs were stable. WBC was 12.5. LFTs were normal. Lipase normal. CT of the abdomen and pelvis showed mildly dilated small bowel loops, possible bowel obstruction versus ileus. There was no free air or free fluid. There was equivocal bladder wall thickening, and an old nonunited left fifth rib fracture, and left renal mass. He was admitted to [facility] floor. He was placed on NPO. He was started on IV fluids. GI was consulted. Gallbladder with gallstones. Possibility of cholecystitis was considered. He then underwent abdominal ultrasound that showed cholelithiasis with mild gallbladder wall thickening. There was a 2.6 x 2.3 cm solid left renal mass concerning for renal cell carcinoma. Diet was advanced. He was followed by infectious disease specialist. He had mild leukocytosis and mild pyuria, however, no UTI symptoms. He was observed off antibiotics. Patient's symptoms resolved and leukocytosis resolved. He was followed by psychiatrist. He was diagnosed with schizoaffective bipolar disorder and paranoid schizophrenia. He was given Seroquel 200 mg daily at bedtime and loxapine 50 mg twice a day. He was placed on Ativan prn. Patient was having bowel movement. He was tolerating diet. Abdomen was soft. Patient was eventually cleared for discharge back to [facility]. FINAL DIAGNOSES: Abdominal pain due to possible ileus Seizure disorder BPH COPD Hypertension GERD Paranoid schizophrenia with acute exacerbation Cholelithiasis Anemia Altered mental status/encephalopathy Left kidney mass Dehydration Probable protein calorie malnutrition DISPOSITION: Patient was discharged to [facility]. DISCHARGE MEDICATIONS: Refer to Discharge Medication List. I have been assigned to dictate discharge summary on this account, and I was not involved in the patient's management. Iliana Carrillo NP Oct 18, 2017 11:03
== END 2017-10-17 12:30 | DRG 388 ==
LOC: EDBD 15:26 → EMR 15:35 → 4E 16:01 → EDBEDREQ 16:08
DX: K56.7 Ileus, unspecified (principal); G93.40 Encephalopathy, unspecified; E46 Unspecified protein-calorie malnutrition; N17.9 Acute kidney failure, unspecified; F20.0 Paranoid schizophrenia; E86.0 Dehydration; F25.0 Schizoaffective disorder, bipolar type; R10.9 Unspecified abdominal pain; G40.909 Epilepsy, unspecified, not intractable, without status epilepticus; N40.0 Benign prostatic hyperplasia without lower urinary tract symptoms; J44.9 Chronic obstructive pulmonary disease, unspecified; I10 Essential (primary) hypertension; K21.9 Gastro-esophageal reflux disease without esophagitis; K80.20 Calculus of gallbladder without cholecystitis without obstruction; D64.9 Anemia, unspecified; N28.89 Other specified disorders of kidney and ureter; Z87.891 Personal history of nicotine dependence; D49.4 Neoplasm of unspecified behavior of bladder
CPT/HCPCS: 36415; 74177; 76700; 80053; 81003; 82150; 83690; 85025; 85730; 87081; 96361; 96374; 97802; 99285

== ENCOUNTER 2018-01-24 12:54 | Inpatient (IN) | payer MEDICARE, OTHER ==
[~2018-01-24] VITALS: Ht 170.2 cm; Wt 68.0 kg
[2018-01-24] MEDS ORDERED: Sodium Chloride 500ML 500 ML IV ONE (13:04)
[2018-01-24 13:05] VITALS: BP 121/75
[2018-01-24 13:57] LABS: BASOPHILS % (AUTO) 1.3 % (0.0-2.0); EOSINOPHILS % (AUTO) 3.9 % (0.0-3.0); HEMATOCRIT 46.9 % (42.0-52.0); HEMOGLOBIN 15.6 G/DL (14.2-18.0); MEAN CORPUSCULAR VOLUME 90 FL (80-99); MONOCYTES % (AUTO) 7.1 % (1.0-10.0); NEUTROPHILS % (AUTO) 69.6 % (45.0-75.0); PLATELET COUNT 333 K/UL (150-450); RED BLOOD COUNT 5.19 M/UL (4.70-6.10); RED CELL DISTRIBUTION WIDTH 13.7 % (11.6-14.8); WHITE BLOOD COUNT 9.8 K/UL (4.8-10.8)
[2018-01-24 14:09] LABS: ANION GAP 6 mmol/L (5-15); BLOOD UREA NITROGEN 18 mg/dL (7-18); CALCIUM 9.1 MG/DL (8.5-10.1); CARBON DIOXIDE 31 MMOL/L (21-32); CHLORIDE 105 MMOL/L (98-107); CREATININE 1.1 MG/DL (0.55-1.30); SODIUM 142 MMOL/L (136-145)
[2018-01-24 14:33] LABS: ALANINE AMINOTRANSFERASE 20 U/L (12-78); ALBUMIN 3.3 G/DL (3.4-5.0); ALBUMIN/GLOBULIN RATIO 0.9 (1.0-2.7); ALKALINE PHOSPHATASE 84 U/L (46-116); ASPARTATE AMINO TRANSFERASE 13 U/L (15-37); BILIRUBIN,TOTAL 0.2 MG/DL (0.2-1.0); CKMB 2.3 NG/ML (0.0-3.6); CREATINE KINASE 75 U/L (26-308)
--- NOTE | 2018-01-24 14:37 | Diagnostic Imaging Report ---
Indication: Trauma with right-sided hip pain and abdominal pain Technique: Spiral acquisitions obtained through the abdomen and pelvis. No oral contrast utilized, per emergency room physician request No IV contrast utilized, per referring physician request.. Multiplanar reconstructions were generated. Total dose length product 746.81 mGycm. CTDIvol(s) 13.88 mGy. Dose reduction achieved using automated exposure control Comparison: 10/14/2017 contrast study Findings: Lack of enteric contrast limits assessment of the GI tract. The appendix is normal. Again demonstrated is distal colonic diverticulosis. No evidence of diverticulitis. There are small bilateral fat-containing inguinal hernias. The distal esophagus, stomach, duodenum are unremarkable. No small bowel distention. No free or loculated intraperitoneal gas or fluid is evident. Lack of IV contrast limits assessment of the solid organs. The liver is unremarkable. The gallbladder demonstrates gallstones. There is equivocal gallbladder wall thickening which is not evident previously, although the gallbladder is less distended than on the previous exam. No biliary ductal dilatation. The pancreas, spleen, adrenals are unremarkable. Again demonstrated is a solid left interpolar region renal mass, less well demonstrated given lack of IV contrast on the current exam. Renal cysts and subcentimeter low-attenuation renal lesions are again demonstrated, less well-seen than on the prior contrast infused study. Again demonstrated are multiple nonobstructive left renal calyceal calculi. No retroperitoneal or mesenteric mass or adenopathy. No pelvic mass or adenopathy. Again demonstrated is prostatomegaly. Again demonstrated is mild bladder wall thickening. The included lung bases demonstrate posterior scarring and atelectasis bilaterally. The bones demonstrate scoliotic deformity and degenerative changes of the lumbar spine. Previously demonstrated ununited left fifth rib fracture is again noted. Minimal infiltration of the subcutaneous fat of the right buttock region, unchanged from the prior exam so probably does not represent acute contusion Impression: Now evidence of acute bony trauma. No evidence of acute solid organ trauma. Note, however, limited evaluation for such given absence of IV contrast administration. Left renal solid mass, also previously described, suspicious for renal cell neoplasm. Comparison with the prior exam not possible due to lack of IV contrast administration on the current study Limited assessment of the GI tract, due to lack of enteric contrast administration Colonic diverticulosis Cholelithiasis. Equivocal mild gallbladder wall thickening, probably secondary to less distended gallbladder than on the prior exam but the possibility of acute cholecystitis should also be retained. Consider further evaluation with ultrasound Nonobstructive left renal calyceal calculi, also previously reported Prostatomegaly Mild bladder wall thickening, could be on the basis of cystitis or bladder outlet obstruction Other findings as noted, including old ununited left fifth rib fracture, lumbar scoliosis, secondary degenerative spondylosis, small bilateral fat-containing inguinal hernias if indicated clinically, basilar pulmonary parenchymal atelectasis and scarring and fibrosis The CT scanner at [facility] is accredited by the [employer] and the scans are performed using protocols designed to limit radiation exposure to as low as reasonably achievable to attain images of sufficient resolution adequate for diagnostic evaluation.
[2018-01-24] MEDS ORDERED: CHLORPROMAZINE25 MG PO (14:48)
[2018-01-24] MEDS ORDERED: VENTOLIN HFA18 GM INH (14:48)
[2018-01-24] MEDS ORDERED: BENZTROPINE ME0.5 MG PO (14:48)
[2018-01-24 15:09] LABS: APPEARANCE,URINE SLIGHTLY CLOUDY; BILIRUBIN, URINE NEGATIVE (NEGATIVE); COLOR,URINE PALE YELLOW; GLUCOSE, URINE (UA) NEGATIVE (NEGATIVE); KETONES,URINE NEGATIVE (NEGATIVE); LEUKOCYTE ESTERASE ,URINE 1+ (NEGATIVE); NITRITE,URINE NEGATIVE (NEGATIVE); PH,URINE 8 (4.5-8.0); PROTEIN,URINE NEGATIVE (NEGATIVE); UROBILINOGEN,URINE NORMAL MG/DL (0.0-1.0)
[2018-01-24 16:25] VITALS: BP 134/69
--- NOTE | 2018-01-24 16:31 | Diagnostic Imaging Report ---
Indication: Chest pain Technique: One view of the chest Comparison: 08/27/2017 Findings: Again demonstrated is atelectasis or scarring at both lung bases. Persistent elevation of the right hemidiaphragm. No new infiltrates. Heart size is upper limits of normal.. 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
[2018-01-24] MEDS ORDERED: Albuterol/Ipratropium 3ml neb HHN PRN (17:00)
[2018-01-24 20:00] VITALS: BP 122/60
[2018-01-24] MEDS ORDERED: Albuterol 90mcg Inhaler 8gm INH PRN (20:00)
[2018-01-24] MEDS ORDERED: Ipratropium 0.02% Inh Soln 2.5ml UD HHN PRN (20:00)
--- NOTE | 2018-01-24 22:01 | Pulmonology Progress Note ---
Assessment/Plan Assessment/Plan Pulmonary Consultation Admitted c/o Right Hip pain for 4 days, Chronic Obstructive Pulmonary Disease, previous episodes of bronchitis, Hypertension, Hyperlipidemia, Left Renal Mass, Schizophrenia, previous Anemia, previous bradycardia, BPH No h/o recent fall, senior living resident. CT Abdomen no evidence of fracture Objective: Vital Signs Noted General Appearance: WD/WN, no acute distress HEENT: normocephalic, atraumatic, anicteric, mucous membranes moist Respiratory/Chest: chest wall non-tender, lungs clear, normal breath sounds, no respiratory distress, no accessory muscle use Cardiovascular: normal peripheral pulses, normal rate, regular rhythm Abdomen: normal bowel sounds, soft, non tender, no organomegaly, non distended , no mass Extremities: no cyanosis, no clubbing, no edema Investigations: CT: Abdomen/Pelvis: Impression: Now evidence of acute bony trauma. No evidence of acute solid organ trauma. Note, however, limited evaluation for such given absence of IV contrast administration. Left renal solid mass, also previously described, suspicious for renal cell neoplasm. Comparison with the prior exam not possible due to lack of IV contrast administration on the current study Limited assessment of the GI tract, due to lack of enteric contrast administration Colonic diverticulosis Cholelithiasis. Equivocal mild gallbladder wall thickening, probably secondary to less distended gallbladder than on the prior exam but the possibility of acute cholecystitis should also be retained. Consider further evaluation with ultrasound Nonobstructive left renal calyceal calculi, also previously reported Prostatomegaly Mild bladder wall thickening, could be on the basis of cystitis or bladder outlet obstruction Other findings as noted, including old ununited left fifth rib fracture, lumbar scoliosis, secondary degenerative spondylosis, small bilateral fat-containing inguinal hernias if indicated clinically, basilar pulmonary parenchymal atelectasis and scarring and fibrosis CXR: Comparison: 08/27/2017 Findings: Again demonstrated is atelectasis or scarring at both lung bases. Persistent elevation of the right hemidiaphragm. No new infiltrates. Heart size is upper limits of normal.. 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 Pain medications SQ Heparin Subjective ROS Limited/Unobtainable: No Allergies: Coded Allergies: FISH LIVER OIL (Verified Allergy, Mild, 09/04/08) Objective Last 24 Hour Vital Signs Date Time Temp Pulse Resp B/P (MAP) Pulse Ox O2 Delivery O2 Flow Rate FiO2 01/24/18 20:00 97.7 60 19 122/60 (80) 93 01/24/18 18:20 Room Air 01/24/18 16:25 98.1 69 17 134/69 (90) 98 01/24/18 15:58 98.0 76 22 120/73 94 Room Air 01/24/18 13:05 98.0 77 24 121/75 93 Room Air 01/24/18 13:00 97.9 78 18 110/73 97 Nasal Cannula 4.0 Laboratory Tests 01/24/18 13:30: White Blood Count 9.8, Red Blood Count 5.19, Hemoglobin 15.6, Hematocrit 46.9, Mean Corpuscular Volume 90, Mean Corpuscular Hemoglobin 30.0, Mean Corpuscular Hemoglobin Concent 33.2, Red Cell Distribution Width 13.7, Platelet Count 333, Mean Platelet Volume 7.1, Neutrophils (%) (Auto) 69.6, Lymphocytes (%) (Auto) 18.0L, Monocytes (%) (Auto) 7.1, Eosinophils (%) (Auto) 3.9H, Basophils (%) ( Auto) 1.3, Sodium Level 142, Potassium Level 4.0, Chloride Level 105, Carbon Dioxide Level 31, Anion Gap 6, Blood Urea Nitrogen 18, Creatinine 1.1, Estimat Glomerular Filtration Rate , Glucose Level 136H, Calcium Level 9.1, Total Bilirubin 0.2, Aspartate Amino Transf (AST/SGOT) 13L, Alanine Aminotransferase ( ALT/SGPT) 20, Alkaline Phosphatase 84, Total Creatine Kinase 75, Creatine Kinase MB 2.3, Creatine Kinase MB Relative Index 3.0, Troponin I 0.000, Total Protein 6.9, Albumin 3.3L, Globulin 3.6, Albumin/Globulin Ratio 0.9L, Lipase 64L 01/24/18 14:45: Urine Color Pale yellow, Urine Appearance Slightly cloudy, Urine pH 8, Urine Specific [place] 1.015, Urine Protein Negative, Urine Glucose (UA) Negative, Urine Ketones Negative, Urine Blood Negative, Urine Nitrite Negative, Urine Bilirubin Negative, Urine Urobilinogen Normal, Urine Leukocyte Esterase 1+H, Urine RBC 0, Urine WBC 0-2, Urine Squamous Epithelial Cells None, Urine Amorphous Sediment ManyH, Urine Bacteria Occasional Current Medications Medications (Trade) Dose Ordered Sig/Davey Route PRN Reason Start Time Stop Time Status Last Admin Dose Admin Acetaminophen (Tylenol) 650 mg Q4H PRN ORAL Mild Pain/Temp > 100.5 01/24/18 17:00 02/23/18 16:59 Acetaminophen/ Codeine Phosphate (Tylenol #3) 1 tab Q6H PRN ORAL pain 4-10 01/24/18 21:45 01/31/18 21:44 Albuterol/ Ipratropium (Albuterol/ Ipratropium) 3 ml Q4H PRN HHN SOB/congestion 01/24/18 17:00 01/29/18 16:59 Amlodipine Besylate (Norvasc) 5 mg DAILY ORAL 01/25/18 09:00 02/24/18 08:59 Benztropine Mesylate (Cogentin) 0.5 mg BID ORAL 01/25/18 09:00 02/24/18 08:59 UNV Chlorpromazine (Thorazine) 25 mg TID ORAL 01/25/18 09:00 02/24/18 08:59 UNV Clonazepam (KlonoPIN) 1 mg BID ORAL 01/25/18 09:00 02/01/18 08:59 UNV Docusate Sodium (Colace) 100 mg TWICE A DAY ORAL 01/25/18 09:00 02/24/18 08:59 EZETIMIBE (Zetia) 10 mg DAILY ORAL 01/25/18 09:00 02/24/18 08:59 Finasteride (Proscar) 5 mg DAILY ORAL 01/25/18 09:00 02/24/18 08:59 Heparin Sodium (Porcine) (Heparin 5000 units/ml) 5,000 units EVERY 12 HOURS SUBQ 01/25/18 09:00 02/24/18 08:59 UNV Ipratropium [place] (Atrovent) 17 mcg Q6HR PRN HHN sob 01/24/18 20:00 01/29/18 19:59 UNV Loxapine Succinate (Loxitane) 50 mg TWICE A DAY ORAL 01/25/18 09:00 02/24/18 08:59 UNV Non-Formulary Medication (Non-Formulary Med) 1 ea DAILY PRN INH Shortness of Breath 01/24/18 20:00 02/23/18 19:59 UNV Pantoprazole (Protonix) 40 mg Q12HR ORAL 01/25/18 09:00 02/24/18 08:59 Quetiapine Fumarate (SEROquel) 300 mg BEDTIME ORAL 01/24/18 22:00 02/23/18 21:59 Sodium Chloride 1,000 ml @ 70 mls/hr [id number] IV 01/24/18 17:15 02/23/18 17:14 01/24/18 17:44 Tamsulosin HCl (Flomax) 0.4 mg DAILY ORAL 01/25/18 09:00 02/24/18 08:59 Temazepam (Restoril) 7.5 mg BEDTIME ORAL 01/24/18 21:00 01/31/18 20:59 Harshad Del Valle MD Jan 24, 2018 22:01
[2018-01-24] MEDS: Tylenol #3 tab (300mg/30mg) ORAL PRN (22:13)
[2018-01-25] VITALS: BP 112/66
[2018-01-25 04:00] VITALS: BP 112/66
[2018-01-25] MEDS: Tylenol #3 tab (300mg/30mg) ORAL PRN ×2 (04:07→10:15)
[2018-01-25 08:00] VITALS: BP 118/71
[2018-01-25] MEDS: Benztropine 1mg tab ORAL SCH ×2 (08:45→18:09)
[2018-01-25] MEDS: Tamsulosin 0.4mg cap ORAL SCH (08:45)
[2018-01-25] MEDS: LOXAPINE 25 MG ORAL SCH ×2 (08:45→18:09)
[2018-01-25] MEDS: chlorproMAZINE 25mg tab ORAL SCH ×3 (08:46→18:09)
[2018-01-25] MEDS: Docusate 100mg cap ORAL SCH ×2 (08:46→18:09)
[2018-01-25] MEDS: Heparin 5000 units/ml inj SUBQ SCH ×2 (08:47→21:28)
--- NOTE | 2018-01-25 09:22 | Consultation ---
History of Present Illness General Date patient seen: Jan 25, 2018 Chief Complaint: Present Illness Allergies: Coded Allergies: FISH LIVER OIL (Verified Allergy, Mild, 09/04/08) Medication History Scheduled Albuterol Sulfate (Ventolin Hfa), 1 PUFF INH EVERY 4 HOURS, (Reported) Amlodipine Besylate* (Amlodipine Besylate*), 5 MG ORAL DAILY, (Reported) Benztropine Mesylate* (Cogentin*), 0.5 MG PO BID, (Reported) Chlorpromazine Hcl (Chlorpromazine Hcl), 25 MG PO TID, (Reported) Clonazepam* (Klonopin*), 1 MG ORAL BID, (Reported) Docusate Sodium* (Colace*), 100 MG ORAL TWICE A DAY, (Reported) Esomeprazole Magnesium (Nexium), 40 MG ORAL DAILY, (Reported) Ezetimibe (Zetia*), 10 MG ORAL DAILY, (Reported) Finasteride (Finasteride), 5 MG ORAL DAILY, (Reported) Loxapine Succinate (Loxapine), 50 MG PO BID, (Reported) Quetiapine Fumarate (Seroquel Xr), 300 MG ORAL QHS, (Reported) Tamsulosin HCl (Flomax), 0.4 MG ORAL DAILY, (Reported) Temazepam (Temazepam*), 15 MG ORAL BEDTIME, (Reported) Scheduled PRN Albuterol Sulfate (Ventolin Hfa), 2 PUFFS INH Q4HR PRN for Shortness of Breath, (Reported) Ipratropium [place] (Atrovent Hfa), 2 PUFFS IH Q6HR PRN for Shortness of Breath, (Reported) Patient History Healthcare decision maker pt Resuscitation status Full Code Advanced Directive on File No Physical Exam Last 24 Hour Vital Signs Date Time Temp Pulse Resp B/P (MAP) Pulse Ox O2 Delivery O2 Flow Rate FiO2 01/25/18 08:46 59 118/71 01/25/18 08:00 97.2 59 17 118/71 (87) 93 01/25/18 07:15 77 17 Room Air 21 01/25/18 04:00 97.4 63 19 112/66 (81) 92 01/25/18 00:00 98.3 63 19 112/66 (81) 92 01/24/18 21:00 Room Air 12/13/18 20:00 97.7 60 19 122/60 (80) 93 01/24/18 18:20 Room Air 01/24/18 16:25 98.1 69 17 134/69 (90) 98 01/24/18 15:58 98.0 76 22 120/73 94 Room Air 01/24/18 13:05 98.0 77 24 121/75 93 Room Air 01/24/18 13:00 97.9 78 18 110/73 97 Nasal Cannula 4.0 Intake and Output 01/24/18 01/25/18 18:59 06:59 Intake Total 1840 ml Output Total 600 ml Balance 1240 ml Intake Oral 1000 ml IV Total 840 ml Output Urine Total 600 ml # Voids 1 Laboratory Tests Test 01/24/18 13:30 01/24/18 14:45 White Blood Count 9.8 K/UL (4.8-10.8) Red Blood Count 5.19 M/UL (4.70-6.10) Hemoglobin 15.6 G/DL (14.2-18.0) Hematocrit 46.9 % (42.0-52.0) Mean Corpuscular Volume 90 FL (80-99) Mean Corpuscular Hemoglobin 30.0 PG (27.0-31.0) Mean Corpuscular Hemoglobin Concent 33.2 G/DL (32.0-36.0) Red Cell Distribution Width 13.7 % (11.6-14.8) Platelet Count 333 K/UL (150-450) Mean Platelet Volume 7.1 FL (6.5-10.1) Neutrophils (%) (Auto) 69.6 % (45.0-75.0) Lymphocytes (%) (Auto) 18.0 % (20.0-45.0) L Monocytes (%) (Auto) 7.1 % (1.0-10.0) Eosinophils (%) (Auto) 3.9 % (0.0-3.0) H Basophils (%) (Auto) 1.3 % (0.0-2.0) Sodium Level 142 MMOL/L (136-145) Potassium Level 4.0 MMOL/L (3.5-5.1) Chloride Level 105 MMOL/L (98-107) Carbon Dioxide Level 31 MMOL/L (21-32) Anion Gap 6 mmol/L (5-15) Blood Urea Nitrogen 18 mg/dL (7-18) Creatinine 1.1 MG/DL (0.55-1.30) Estimat Glomerular Filtration Rate mL/min (>60) Glucose Level 136 MG/DL (74-106) H Calcium Level 9.1 MG/DL (8.5-10.1) Total Bilirubin 0.2 MG/DL (0.2-1.0) Aspartate Amino Transf (AST/SGOT) 13 U/L (15-37) L Alanine Aminotransferase (ALT/SGPT) 20 U/L (12-78) Alkaline Phosphatase 84 U/L (46-116) Total Creatine Kinase 75 U/L (26-308) Creatine Kinase MB 2.3 NG/ML (0.0-3.6) Creatine Kinase MB Relative Index 3.0 Troponin I 0.000 ng/mL (0.000-0.056) Total Protein 6.9 G/DL (6.4-8.2) Albumin 3.3 G/DL (3.4-5.0) L Globulin 3.6 g/dL Albumin/Globulin Ratio 0.9 (1.0-2.7) L Lipase 64 U/L (73-393) L Urine Color Pale yellow Urine Appearance Slightly cloudy Urine pH 8 (4.5-8.0) Urine Specific [place] 1.015 (1.005-1.035) Urine Protein Negative (NEGATIVE) Urine Glucose (UA) Negative (NEGATIVE) Urine Ketones Negative (NEGATIVE) Urine Blood Negative (NEGATIVE) Urine Nitrite Negative (NEGATIVE) Urine Bilirubin Negative (NEGATIVE) Urine Urobilinogen Normal MG/DL (0.0-1.0) Urine Leukocyte Esterase 1+ (NEGATIVE) H Urine RBC 0 /HPF (0 - 0) Urine WBC 0-2 /HPF (0 - 0) Urine Squamous Epithelial Cells None /LPF (NONE/OCC) Urine Amorphous Sediment Many /LPF (NONE) H Urine Bacteria Occasional /HPF (NONE) Microbiology Date/Time Source Procedure Growth Status 01/24/18 16:20 Rectum Received Height (Feet): 5 Height (Inches): 7.00 Weight (Pounds): 150 Medications Current Medications Medications (Trade) Dose Ordered Sig/Davey Route PRN Reason Start Time Stop Time Status Last Admin Dose Admin Acetaminophen (Tylenol) 650 mg Q4H PRN ORAL Mild Pain/Temp > 100.5 01/24/18 17:00 02/23/18 16:59 Acetaminophen/ Codeine Phosphate (Tylenol #3) 1 tab Q6H PRN ORAL pain 4-10 01/24/18 21:45 01/31/18 21:44 01/25/18 04:07 Albuterol Sulfate (Proventil MDI) 2 puff Q4H PRN INH Shortness of Breath 01/24/18 20:00 02/23/18 19:59 Albuterol/ Ipratropium (Albuterol/ Ipratropium) 3 ml Q4H PRN HHN SOB/congestion 01/24/18 17:00 01/29/18 16:59 Amlodipine Besylate (Norvasc) 5 mg DAILY ORAL 01/25/18 09:00 02/24/18 08:59 Benztropine Mesylate (Cogentin) 0.5 mg BID ORAL 01/25/18 09:00 02/24/18 08:59 01/25/18 08:45 Chlorpromazine (Thorazine) 25 mg TID ORAL 01/25/18 09:00 02/24/18 08:59 01/25/18 08:46 Clonazepam (KlonoPIN) 1 mg BID ORAL 01/25/18 09:00 02/01/18 08:59 01/25/18 08:46 Docusate Sodium (Colace) 100 mg TWICE A DAY ORAL 01/25/18 09:00 02/24/18 08:59 01/25/18 08:46 EZETIMIBE (Zetia) 10 mg DAILY ORAL 01/25/18 09:00 02/24/18 08:59 01/25/18 08:46 Finasteride (Proscar) 5 mg DAILY ORAL 01/25/18 09:00 02/24/18 08:59 01/25/18 08:46 Heparin Sodium (Porcine) (Heparin 5000 units/ml) 5,000 units EVERY 12 HOURS SUBQ 01/25/18 09:00 02/24/18 08:59 Ipratropium [place] (Atrovent) 17 mcg Q6HR PRN HHN sob 01/24/18 20:00 01/29/18 19:59 Loxapine Succinate (Loxitane) 50 mg TWICE A DAY ORAL 01/25/18 09:00 02/24/18 08:59 12/14/18 08:45 Pantoprazole (Protonix) 40 mg Q12HR ORAL 01/25/18 09:00 02/24/18 08:59 01/25/18 08:45 Quetiapine Fumarate (SEROquel) 300 mg BEDTIME ORAL 01/24/18 22:00 02/23/18 21:59 01/24/18 22:06 Sodium Chloride 1,000 ml @ 70 mls/hr [id number] IV 01/24/18 17:15 02/23/18 17:14 01/25/18 06:13 Tamsulosin HCl (Flomax) 0.4 mg DAILY ORAL 01/25/18 09:00 02/24/18 08:59 01/25/18 08:45 Temazepam (Restoril) 7.5 mg BEDTIME ORAL 01/24/18 21:00 01/31/18 20:59 01/24/18 22:06 Assessment/Plan Assessment/Plan (1) Lumbar DDD (2) Lumbar Spondylosis (3) Lumbar Radiculopathy (4) Scoliosis seen dictated Billy Burrell Jan 25, 2018 09:22
[2018-01-25 12:00] VITALS: BP 116/64
--- NOTE | 2018-01-25 14:24 | Consultation ---
Consult Note Consult Note HEMATOLOGY-ONCOLOGY CONSULTATION REFERRING PHYSICIAN: Saida Cee REASON FOR CONSULT: H/O bladder cancer. DATE OF CONSULT: 01/25/2018 HISTORY OF PRESENT ILLNESS: The patient is a pleasant 72-year-old male with past medical history, which is significant for smoking and lives in assisted living, has GERD, COPD, hypertension, schizophrenia, BPH, renal and bladder cancer, history of bradycardia, and hyperlipidemia. Hematology/Oncology Service was consulted for history of bladder cancer as well as renal carcinoma. The patient is a heavy smoker. Pt is known to me and was last seen in August 2017. PAST MEDICAL HISTORY: COPD, hypertension, anxiety, GERD, constipation, renal and bladder cancer, BPH, paranoid schizophrenia, history of bradycardia, and hyperlipidemia. PAST SURGICAL HISTORY: SOCIAL HISTORY: Ex-smoker. Lives in assisted living. No illicit drug use. No alcohol. FAMILY HISTORY: Noncontributory. REVIEW OF SYSTEMS: CONSTITUTIONAL: No fevers, chills, or night sweats. SKIN: No rashes, bumps, or itching. HEENT: No headache, hearing or visual changes. BREASTS: No lumps, pain, or discharge. PULMONARY: No cough, sputum, or shortness of breath. GASTROINTESTINAL: No nausea, vomiting, or diarrhea. GENITOURINARY: No dysuria, frequency, or urgency. MUSCULOSKELETAL: No joint swelling, muscle pain, or trauma. PHYSICAL EXAMINATION: VITAL SIGNS: Reviewed. GENERAL: No acute distress. LUNGS: Decreased breath sounds. CARDIOVASCULAR: Regular rate. No S3 or S4. ABDOMEN: Soft, nontender, and nondistended. EXTREMITIES: A 1+ edema. LABORATORY AND DIAGNOSTIC DATA: wbc 9.8 hgb 15.6 plt 333 IMAGING: CT abd --> Left renal solid mass, also previously described, suspicious for renal cell neoplasm. Colonic diverticulosis Prostatomegaly. Mild bladder wall thickening, could be on the basis of cystitis or bladder outlet obstruction ASSESSMENT AND RECOMMENDATIONS 1. Bladder mass history, consistent with urothelial cancer. --> CT shows mild bladder wall thickening 2. Renal mass, potentially consistent with renal carcinoma. We will need to obtain further imaging. --> CT shows left renal solid mass 3. Elevated PSA in the past. Most recent PSA was 10. We will need to resend along with other tumor markers. 4. Anemia due to underlying chronic disease. Currently stable. 5. Schizophrenia. Monitor with psychiatric team. GREATLY APPRECIATE THE CONSULTATION. Johnathan Lemons MD Jan 25, 2018 14:24
[2018-01-25 16:00] VITALS: BP 117/74
--- NOTE | 2018-01-25 16:10 | Cardiology Report ---
APPROVED REPORT EKG Measurement Heart [id number] Normal sinus rhythm Normal ECG
[2018-01-25 20:00] VITALS: BP 121/72
--- NOTE | 2018-01-25 21:00 | Consultation ---
DATE OF CONSULTATION: 01/25/2018 PAIN MANAGEMENT CONSULTATION CONSULTING PHYSICIAN: Hiren Juarez M.D. REFERRING PHYSICIAN: Saida Cee M.D. PHYSICIAN SIGNALMAN: SPARKLE De La Cruz. CHIEF COMPLAINT: Right hip pain. HISTORY OF PRESENT ILLNESS: This is a 72-year-old male who is being seen on the Med[facility]Surg floor of [facility] for initial pain management consultation. The patient was admitted under the care of Dr. Cee complaining of right hip pain and has a history of COPD, hypertension, left kidney mass, BPH, and paranoid schizophrenia. At this time, the patient is in bed. He does not exhibit any pain and that his pain has been reduced with Tylenol No. 3 one tablet every 6 hours as needed, which he was started on upon admission. He is comfortable at this time. CT scan of the abdomen and pelvis showed no fracture of the right hip; however, did show scoliosis of the lumbar spine with degenerative changes and it also shows left renal solid mass, which is suspicious for renal cell neoplasm, also possible cholelithiasis as well as cholecystitis. Again, the patient is lying in the bed. Reports pain has been greatly reduced with Tylenol No. 3. We were consulted so the patient will have adequate pain control here in the hospital. At this time, the patient is in the bed. We recommend the patient to be seen by an oncologist as well as a urologist and a territory sales professional due to the pathologies that were noted on the CT scan of the abdomen and pelvis. PAST MEDICAL HISTORY: Again is paranoid schizophrenia, COPD, hypertension, GERD, BPH, renal mass, hyperlipidemia, and gallstones. SOCIAL HISTORY: He is a smoker. Denies alcohol and IV drug abuse. ALLERGIES: No known drug allergies. MEDICATIONS: Ventolin, amlodipine, Cogentin, chlorpromazine, Klonopin, Colace, Nexium, finasteride, Atrovent, loxapine, Seroquel, Flomax, and temazepam. REVIEW OF SYSTEMS: Denies rash, fever, chills, sweating, dizziness, drowsiness, blurred vision, sore throat, or change in weight. No shortness of breath or chest pain. No nausea, vomiting, diarrhea, or blood in the stool or urine. No bowel or bladder incontinence. No dysuria. PHYSICAL EXAMINATION: GENERAL: Alert, awake, and oriented. VITAL SIGNS: Blood pressure 118/71, heart rate 69, oxygen saturation is 90%, respiratory rate is 17, and temperature is 97.2 degrees Fahrenheit. HEENT: PERRLA. NECK: Range of motion is full in all directions. No tenderness to paracervical muscles. No adenopathy. LUNGS: Decreased breath sounds bilaterally. HEART: S1 and S2 regular. ABDOMEN: Soft and nontender. BACK: Range of motion is decreased in flexion and extension. EXTREMITIES: Upper and lower extremity range of motion is decreased due to the patient's condition. No cyanosis. No clubbing. No edema. Sensory is intact. Reflexes are not obtainable. No adenopathy. ASSESSMENT AND PLAN: This is a 72-year-old male with lumbar degenerative disease, lumbar spondylosis, lumbar scoliosis, and lumbar radiculopathy. The patient will be continued on Tylenol No. 3 one tablet every 6 hours as needed for pain. Recommend again the patient to be seen by oncologist, urologist as well as a territory sales professional for noted pathology on the CT scan of the abdomen and pelvis. Parameters will be set to hold opiates for oversedation or systolic blood pressure below 90 or diastolic below 60 or respiratory rate below 12, oxygen saturation below 92%. The patient was discussed with Dr. Juarez and he concurred. We will follow the patient. Thank you very much for the courtesy of this consultation. Hiren Juarez M.D. SPARKLE De La Cruz DR: JAZMYNE JOB#: [id number] CC: HEAVEN
--- NOTE | 2018-01-25 22:40 | Pulmonology Progress Note ---
Assessment/Plan Assessment/Plan Pulmonary Consultation Admitted c/o Right Hip pain for 4 days, Chronic Obstructive Pulmonary Disease, previous episodes of bronchitis, Hypertension, Hyperlipidemia, Left Renal Mass, Schizophrenia, previous Anemia, previous bradycardia, BPH No h/o recent fall, care home resident. CT Abdomen no evidence of fracture Objective: Vital Signs Noted General Appearance: WD/WN, no acute distress HEENT: normocephalic, atraumatic, anicteric, mucous membranes moist Respiratory/Chest: chest wall non-tender, lungs clear, normal breath sounds, no respiratory distress, no accessory muscle use Cardiovascular: normal peripheral pulses, normal rate, regular rhythm Abdomen: normal bowel sounds, soft, non tender, no organomegaly, non distended , no mass Extremities: no cyanosis, no clubbing, no edema Investigations: CT: Abdomen/Pelvis: Impression: Now evidence of acute bony trauma. No evidence of acute solid organ trauma. Note, however, limited evaluation for such given absence of IV contrast administration. Left renal solid mass, also previously described, suspicious for renal cell neoplasm. Comparison with the prior exam not possible due to lack of IV contrast administration on the current study Limited assessment of the GI tract, due to lack of enteric contrast administration Colonic diverticulosis Cholelithiasis. Equivocal mild gallbladder wall thickening, probably secondary to less distended gallbladder than on the prior exam but the possibility of acute cholecystitis should also be retained. Consider further evaluation with ultrasound Nonobstructive left renal calyceal calculi, also previously reported Prostatomegaly Mild bladder wall thickening, could be on the basis of cystitis or bladder outlet obstruction Other findings as noted, including old ununited left fifth rib fracture, lumbar scoliosis, secondary degenerative spondylosis, small bilateral fat-containing inguinal hernias if indicated clinically, basilar pulmonary parenchymal atelectasis and scarring and fibrosis CXR: 01/24/2018 Comparison: 08/27/2017 Findings: Again demonstrated is atelectasis or scarring at both lung bases. Persistent elevation of the right hemidiaphragm. No new infiltrates. Heart size is upper limits of normal.. 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 Pain medications SQ Heparin Subjective ROS Limited/Unobtainable: No Allergies: Coded Allergies: FISH LIVER OIL (Verified Allergy, Mild, 09/04/08) Objective Last 24 Hour Vital Signs Date Time Temp Pulse Resp B/P (MAP) Pulse Ox O2 Delivery O2 Flow Rate FiO2 01/25/18 20:00 97.1 62 19 121/72 (88) 94 01/25/18 16:00 97.0 57 20 117/74 (88) 96 01/25/18 12:05 95 01/25/18 12:00 97.0 58 20 116/64 (81) 88 01/25/18 09:00 Room Air 01/25/18 08:46 59 118/71 01/25/18 08:00 97.2 59 17 118/71 (87) 93 01/25/18 07:15 77 17 Room Air 21 01/25/18 04:00 97.4 63 19 112/66 (81) 92 01/25/18 00:00 98.3 63 19 112/66 (81) 92 Intake and Output 01/24/18 01/25/18 19:00 07:00 Intake Total 70 ml 1840 ml Output Total 600 ml Balance 70 ml 1240 ml Intake Oral 1000 ml IV Total 70 ml 840 ml Output Urine Total 600 ml # Voids 1 Microbiology Date/Time Source Procedure Growth Status 01/24/18 16:20 Rectum Received Current Medications Medications (Trade) Dose Ordered Sig/Davey Route PRN Reason Start Time Stop Time Status Last Admin Dose Admin Acetaminophen (Tylenol) 650 mg Q4H PRN ORAL Mild Pain/Temp > 100.5 01/24/18 17:00 02/23/18 16:59 Acetaminophen/ Codeine Phosphate (Tylenol #3) 1 tab Q6H PRN ORAL pain 4-10 01/24/18 21:45 01/31/18 21:44 01/25/18 10:15 Albuterol Sulfate (Proventil MDI) 2 puff Q4H PRN INH Shortness of Breath 01/24/18 20:00 02/23/18 19:59 Albuterol/ Ipratropium (Albuterol/ Ipratropium) 3 ml Q4H PRN HHN SOB/congestion 01/24/18 17:00 01/29/18 16:59 Amlodipine Besylate (Norvasc) 5 mg DAILY ORAL 01/25/18 09:00 02/24/18 08:59 Benztropine Mesylate (Cogentin) 0.5 mg BID ORAL 01/25/18 09:00 02/24/18 08:59 01/25/18 18:09 Chlorpromazine (Thorazine) 25 mg TID ORAL 01/25/18 09:00 02/24/18 08:59 01/25/18 18:09 Clonazepam (KlonoPIN) 1 mg BID ORAL 01/25/18 09:00 02/01/18 08:59 01/25/18 18:09 Docusate Sodium (Colace) 100 mg TWICE A DAY ORAL 01/25/18 09:00 02/24/18 08:59 01/25/18 18:09 EZETIMIBE (Zetia) 10 mg DAILY ORAL 01/25/18 09:00 02/24/18 08:59 01/25/18 08:46 Finasteride (Proscar) 5 mg DAILY ORAL 01/25/18 09:00 02/24/18 08:59 01/25/18 08:46 Heparin Sodium (Porcine) (Heparin 5000 units/ml) 5,000 units EVERY 12 HOURS SUBQ 01/25/18 09:00 02/24/18 08:59 01/25/18 21:28 Ipratropium [place] (Atrovent) 17 mcg Q6HR PRN HHN sob 01/24/18 20:00 01/29/18 19:59 Loxapine Succinate (Loxitane) 50 mg TWICE A DAY ORAL 01/25/18 09:00 02/24/18 08:59 01/25/18 18:09 Pantoprazole (Protonix) 40 mg Q12HR ORAL 01/25/18 09:00 02/24/18 08:59 01/25/18 21:24 Quetiapine Fumarate (SEROquel) 300 mg BEDTIME ORAL 01/24/18 22:00 02/23/18 21:59 01/25/18 21:25 Sodium Chloride 1,000 ml @ 70 mls/hr [id number] IV 01/24/18 17:15 02/23/18 17:14 01/25/18 21:33 Tamsulosin HCl (Flomax) 0.4 mg DAILY ORAL 01/25/18 09:00 02/24/18 08:59 01/25/18 08:45 Temazepam (Restoril) 7.5 mg BEDTIME ORAL 01/24/18 21:00 01/31/18 20:59 01/25/18 21:25 Harshad Del Valle MD Jan 25, 2018 22:40
[2018-01-26] VITALS: BP 111/58
--- NOTE | 2018-01-26 00:55 | Consultation ---
History of Present Illness General Date patient seen: Jan 25, 2018 Chief Complaint: Pain Present Illness HPI 72-year-old male with past medical history, which is significant for smoking and lives in assisted living, has GERD, COPD, hypertension, schizophrenia, BPH, renal and bladder cancer, history of bradycardia, and hyperlipidemia. the pt has anxiety and paranoia Allergies: Coded Allergies: FISH LIVER OIL (Verified Allergy, Mild, 09/04/08) Medication History Scheduled Albuterol Sulfate (Ventolin Hfa), 1 PUFF INH EVERY 4 HOURS, (Reported) Amlodipine Besylate* (Amlodipine Besylate*), 5 MG ORAL DAILY, (Reported) Benztropine Mesylate* (Cogentin*), 0.5 MG PO BID, (Reported) Chlorpromazine Hcl (Chlorpromazine Hcl), 25 MG PO TID, (Reported) Clonazepam* (Klonopin*), 1 MG ORAL BID, (Reported) Docusate Sodium* (Colace*), 100 MG ORAL TWICE A DAY, (Reported) Esomeprazole Magnesium (Nexium), 40 MG ORAL DAILY, (Reported) Ezetimibe (Zetia*), 10 MG ORAL DAILY, (Reported) Finasteride (Finasteride), 5 MG ORAL DAILY, (Reported) Loxapine Succinate (Loxapine), 50 MG PO BID, (Reported) Quetiapine Fumarate (Seroquel Xr), 300 MG ORAL QHS, (Reported) Tamsulosin HCl (Flomax), 0.4 MG ORAL DAILY, (Reported) Temazepam (Temazepam*), 15 MG ORAL BEDTIME, (Reported) Scheduled PRN Albuterol Sulfate (Ventolin Hfa), 2 PUFFS INH Q4HR PRN for Shortness of Breath, (Reported) Ipratropium [place] (Atrovent Hfa), 2 PUFFS IH Q6HR PRN for Shortness of Breath, (Reported) Patient History Limited by: medical condition History Provided By: Patient, Medical Record, PMD Healthcare decision maker pt Resuscitation status Full Code Advanced Directive on File No Past Medical/Surgical History Past Medical/Surgical History: (1) Bradycardia (2) Leukocytosis (3) Syncope (4) EEG abnormal (5) r/o seizure event (6) Anemia (7) Sepsis (8) Altered mental status (9) Abdominal pain (10) BPH (benign prostatic hyperplasia) (11) Bladder tumor (12) Weakness (13) Encephalopathy Review of Systems Psychiatric: Reports: prior hx, anxiety, depressed feelings, emotional problems Physical Exam General Appearance: alert Neurologic: oriented x 3, responsive, depressed affect Last 24 Hour Vital Signs Date Time Temp Pulse Resp B/P (MAP) Pulse Ox O2 Delivery O2 Flow Rate FiO2 01/26/18 00:00 96.9 61 19 111/58 (75) 96 01/25/18 21:00 Room Air 01/25/18 20:00 70 18 Room Air 21 01/25/18 20:00 97.1 62 19 121/72 (88) 94 01/25/18 16:00 97.0 57 20 117/74 (88) 96 01/25/18 12:05 95 01/25/18 12:00 97.0 58 20 116/64 (81) 88 01/25/18 09:00 Room Air 01/25/18 08:46 59 118/71 01/25/18 08:00 97.2 59 17 118/71 (87) 93 01/25/18 07:15 77 17 Room Air 21 01/25/18 04:00 97.4 63 19 112/66 (81) 92 Intake and Output 01/25/18 01/26/18 19:00 07:00 Intake Total 1910 ml 140 ml Output Total 1200 ml Balance 710 ml 140 ml Intake Oral 1000 ml IV Total 910 ml 140 ml Output Urine Total 1200 ml Height (Feet): 5 Height (Inches): 7.00 Weight (Pounds): 150 Medications Current Medications Medications (Trade) Dose Ordered Sig/Davey Route PRN Reason Start Time Stop Time Status Last Admin Dose Admin Acetaminophen (Tylenol) 650 mg Q4H PRN ORAL Mild Pain/Temp > 100.5 01/24/18 17:00 02/23/18 16:59 Acetaminophen/ Codeine Phosphate (Tylenol #3) 1 tab Q6H PRN ORAL pain 4-10 01/24/18 21:45 01/31/18 21:44 01/25/18 10:15 Albuterol Sulfate (Proventil MDI) 2 puff Q4H PRN INH Shortness of Breath 01/24/18 20:00 02/23/18 19:59 Albuterol/ Ipratropium (Albuterol/ Ipratropium) 3 ml Q4H PRN HHN SOB/congestion 01/24/18 17:00 01/29/18 16:59 Amlodipine Besylate (Norvasc) 5 mg DAILY ORAL 01/25/18 09:00 02/24/18 08:59 Benztropine Mesylate (Cogentin) 0.5 mg BID ORAL 01/25/18 09:00 02/24/18 08:59 01/25/18 18:09 Chlorpromazine (Thorazine) 25 mg TID ORAL 01/25/18 09:00 02/24/18 08:59 01/25/18 18:09 Clonazepam (KlonoPIN) 1 mg BID ORAL 01/25/18 09:00 02/01/18 08:59 01/25/18 18:09 Docusate Sodium (Colace) 100 mg TWICE A DAY ORAL 01/25/18 09:00 02/24/18 08:59 01/25/18 18:09 EZETIMIBE (Zetia) 10 mg DAILY ORAL 01/25/18 09:00 02/24/18 08:59 01/25/18 08:46 Finasteride (Proscar) 5 mg DAILY ORAL 01/25/18 09:00 02/24/18 08:59 01/25/18 08:46 Heparin Sodium (Porcine) (Heparin 5000 units/ml) 5,000 units EVERY 12 HOURS SUBQ 01/25/18 09:00 02/24/18 08:59 01/25/18 21:28 Ipratropium [place] (Atrovent) 17 mcg Q6HR PRN HHN sob 01/24/18 20:00 01/29/18 19:59 Loxapine Succinate (Loxitane) 50 mg TWICE A DAY ORAL 01/25/18 09:00 02/24/18 08:59 01/25/18 18:09 Pantoprazole (Protonix) 40 mg Q12HR ORAL 01/25/18 09:00 02/24/18 08:59 01/25/18 21:24 Quetiapine Fumarate (SEROquel) 300 mg BEDTIME ORAL 01/24/18 22:00 02/23/18 21:59 01/25/18 21:25 Sodium Chloride 1,000 ml @ 70 mls/hr [id number] IV 01/24/18 17:15 1/12/19 17:14 01/25/18 21:33 Tamsulosin HCl (Flomax) 0.4 mg DAILY ORAL 01/25/18 09:00 02/24/18 08:59 01/25/18 08:45 Temazepam (Restoril) 7.5 mg BEDTIME ORAL 01/24/18 21:00 01/31/18 20:59 01/25/18 21:25 Assessment/Plan Problem List: (1) schizophrenia Assessment/Plan seroquel 300mg qhs klonopin 1mg po bid provided ro/Yin Ochoa MD Jan 26, 2018 00:55
[2018-01-26 04:00] VITALS: BP 116/75
--- NOTE | 2018-01-26 07:58 | Emergency Room Report ---
History of Present Illness General Chief Complaint: Pain Source: Patient, Medical Record, PMD Present Illness HPI Patient present with reports of general weakness Right-sided hip pain Patient himself appears mildly tachypneic and short of breath Denies any chest pain Denies any vomiting or diarrhea denies any recent trauma Denies any dysuria however patient was noted to have possible bladder infection Denies any neck pain or photophobia patient has decreased oral intake Allergies: Coded Allergies: FISH LIVER OIL (Verified Allergy, Mild, 09/04/08) Patient History Past Medical History: see triage record Pertinent Family History: none Reviewed Nursing Documentation: PMH: Agreed; PSxH: Agreed Nursing Documentation-PMH Past Medical History: No History, Except For Hx Cardiac Problems: No Hx Hypertension: Yes Hx COPD: Yes Hx Cancer: Yes - gallbladder cancer Hx Gastrointestinal Problems: No History Of Psychiatric Problem: Yes - schizoprenia Hx Neurological Problems: Yes Hx Weakness: Yes - LEG WEAKNESS Review of Systems All Other Systems: negative except mentioned in HPI Physical Exam Vital Signs Date Time Temp Pulse Resp B/P (MAP) Pulse Ox O2 Delivery O2 Flow Rate FiO2 01/24/18 13:00 97.9 78 18 110/73 97 Nasal Cannula 4.0 01/25/18 07:15 21 Sp02 EP Interpretation: reviewed, normal General Appearance: mild distress - Appears shot of breath Head: normocephalic, atraumatic Eyes: bilateral eye PERRL, bilateral eye EOMI ENT: hearing grossly normal, normal pharynx, dry mucus membranes Neck: supple Respiratory: no retraction, no accessory muscle use, crackles - Bilaterally Cardiovascular #1: regular rate, rhythm, no edema Gastrointestinal: non tender, soft, no mass Musculoskeletal: other - Tender on pelvic rock points to the anterior right hip Skin: normal color, no rash Lymphatic: no adenopathy Medical Decision Making Diagnostic Impression: Primary Impression: UTI (urinary tract infection) Additional Impressions: Dehydration Hip pain ER Course Multiple differentials considered Patient's x-ray shows similar findings to previous Patient is provided further hydration pain medication CT imaging does not reveal any acute bony pathology Given the patient's risk factors presentation and lack of any obvious finding patient is admitted for further care Labs Test 01/24/18 13:30 01/24/18 14:45 White Blood Count 9.8 K/UL (4.8-10.8) Red Blood Count 5.19 M/UL (4.70-6.10) Hemoglobin 15.6 G/DL (14.2-18.0) Hematocrit 46.9 % (42.0-52.0) Mean Corpuscular Volume 90 FL (80-99) Mean Corpuscular Hemoglobin 30.0 PG (27.0-31.0) Mean Corpuscular Hemoglobin Concent 33.2 G/DL (32.0-36.0) Red Cell Distribution Width 13.7 % (11.6-14.8) Platelet Count 333 K/UL (150-450) Mean Platelet Volume 7.1 FL (6.5-10.1) Neutrophils (%) (Auto) 69.6 % (45.0-75.0) Lymphocytes (%) (Auto) 18.0 % (20.0-45.0) Monocytes (%) (Auto) 7.1 % (1.0-10.0) Eosinophils (%) (Auto) 3.9 % (0.0-3.0) Basophils (%) (Auto) 1.3 % (0.0-2.0) Sodium Level 142 MMOL/L (136-145) Potassium Level 4.0 MMOL/L (3.5-5.1) Chloride Level 105 MMOL/L (98-107) Carbon Dioxide Level 31 MMOL/L (21-32) Anion Gap 6 mmol/L (5-15) Blood Urea Nitrogen 18 mg/dL (7-18) Creatinine 1.1 MG/DL (0.55-1.30) Estimat Glomerular Filtration Rate mL/min (>60) Glucose Level 136 MG/DL (74-106) Calcium Level 9.1 MG/DL (8.5-10.1) Total Bilirubin 0.2 MG/DL (0.2-1.0) Aspartate Amino Transf (AST/SGOT) 13 U/L (15-37) Alanine Aminotransferase (ALT/SGPT) 20 U/L (12-78) Alkaline Phosphatase 84 U/L (46-116) Total Creatine Kinase 75 U/L (26-308) Creatine Kinase MB 2.3 NG/ML (0.0-3.6) Creatine Kinase MB Relative Index 3.0 Troponin I 0.000 ng/mL (0.000-0.056) Total Protein 6.9 G/DL (6.4-8.2) Albumin 3.3 G/DL (3.4-5.0) Globulin 3.6 g/dL Albumin/Globulin Ratio 0.9 (1.0-2.7) Lipase 64 U/L (73-393) Urine Color Pale yellow Urine Appearance Slightly cloudy Urine pH 8 (4.5-8.0) Urine Specific [place] 1.015 (1.005-1.035) Urine Protein Negative (NEGATIVE) Urine Glucose (UA) Negative (NEGATIVE) Urine Ketones Negative (NEGATIVE) Urine Blood Negative (NEGATIVE) Urine Nitrite Negative (NEGATIVE) Urine Bilirubin Negative (NEGATIVE) Urine Urobilinogen Normal MG/DL (0.0-1.0) Urine Leukocyte Esterase 1+ (NEGATIVE) Urine RBC 0 /HPF (0 - 0) Urine WBC 0-2 /HPF (0 - 0) Urine Squamous Epithelial Cells None /LPF (NONE/OCC) Urine Amorphous Sediment Many /LPF (NONE) Urine Bacteria Occasional /HPF (NONE) Rhythm Strip Diag. Results EP Interpretation: yes Rate: 88 Rhythm: NSR, no PVC's, no ectopy Chest X-Ray Diagnostic Results Chest X-Ray Diagnostic Results : Chest X-Ray Ordered: Yes # of Views/Limited/Complete: 1 View Indication: Chest Pain EP Interpretation: Yes Interpretation: no consolidation, no pneumothorax, no acute cardiopulmonary disease Impression: No acute disease Electronically Signed by: Saida Yoon, CT/MRI/US Diagnostic Results CT/MRI/US Diagnostic Results : Impression CT abdomen pelvis:Impression: Now evidence of acute bony trauma. No evidence of acute solid organ trauma. Note, however, limited evaluation for such given absence of IV contrast administration. Left renal solid mass, also previously described, suspicious for renal cell neoplasm. Comparison with the prior exam not possible due to lack of IV contrast administration on the current study Limited assessment of the GI tract, due to lack of enteric contrast administration Colonic diverticulosis Cholelithiasis. Equivocal mild gallbladder wall thickening, probably secondary to less distended gallbladder than on the prior exam but the possibility of acute cholecystitis should also be retained. Consider further evaluation with ultrasound Nonobstructive left renal calyceal calculi, also previously reported Prostatomegaly Mild bladder wall thickening, could be on the basis of cystitis or bladder outlet obstruction Other findings as noted, including old ununited left fifth rib fracture, lumbar scoliosis, secondary degenerative spondylosis, small bilateral fat-containing inguinal hernias if indicated clinically, basilar pulmonary parenchymal atelectasis and scarring and fibrosis Last Vital Signs Date Time Temp Pulse Resp B/P (MAP) Pulse Ox O2 Delivery O2 Flow Rate FiO2 01/26/18 04:00 99.1 98 19 116/75 (89) 97 01/25/18 21:00 Room Air 01/25/18 20:00 21 01/24/18 13:00 4.0 Status: improved Disposition: ADMITTED INPATIENT Condition: Serious Referrals: Saida Cee MD (PCP) Saida Yoon DO Jan 26, 2018 07:58
[2018-01-26 08:00] VITALS: BP_SYST 119; BP_SYST 136; BP_DIAS 77; BP_DIAS 88
[2018-01-26] MEDS: Heparin 5000 units/ml inj SUBQ SCH ×2 (09:00→20:09)
[2018-01-26] MEDS: chlorproMAZINE 25mg tab ORAL SCH ×3 (09:29→17:02)
[2018-01-26] MEDS: Docusate 100mg cap ORAL SCH ×2 (09:30→17:02)
[2018-01-26] MEDS: Benztropine 1mg tab ORAL SCH ×2 (09:30→17:02)
[2018-01-26] MEDS: Tamsulosin 0.4mg cap ORAL SCH (09:30)
[2018-01-26] MEDS: LOXAPINE 25 MG ORAL SCH ×2 (09:30→17:01)
[2018-01-26 11:57] VITALS: BP 102/73
[2018-01-26] MEDS: Vancomycin 1250mg/D5W 250ml 250 ML IVPB SCH (14:14)
[2018-01-26 16:00] VITALS: BP 111/68
--- NOTE | 2018-01-26 16:04 | Pulmonology Progress Note ---
Assessment/Plan Assessment/Plan Pulmonary Consultation Admitted c/o Right Hip pain for 4 days, Chronic Obstructive Pulmonary Disease, previous episodes of bronchitis, Hypertension, Hyperlipidemia, Left Renal Mass, Schizophrenia, previous Anemia, previous bradycardia, BPH No h/o recent fall, detention resident. CT Abdomen no evidence of fracture Objective: Vital Signs Noted General Appearance: WD/WN, no acute distress HEENT: normocephalic, atraumatic, anicteric, mucous membranes moist Respiratory/Chest: chest wall non-tender, lungs clear, normal breath sounds, no respiratory distress, no accessory muscle use Cardiovascular: normal peripheral pulses, normal rate, regular rhythm Abdomen: normal bowel sounds, soft, non tender, no organomegaly, non distended , no mass Extremities: no cyanosis, no clubbing, no edema Investigations: CT: Abdomen/Pelvis: Impression: Now evidence of acute bony trauma. No evidence of acute solid organ trauma. Note, however, limited evaluation for such given absence of IV contrast administration. Left renal solid mass, also previously described, suspicious for renal cell neoplasm. Comparison with the prior exam not possible due to lack of IV contrast administration on the current study Limited assessment of the GI tract, due to lack of enteric contrast administration Colonic diverticulosis Cholelithiasis. Equivocal mild gallbladder wall thickening, probably secondary to less distended gallbladder than on the prior exam but the possibility of acute cholecystitis should also be retained. Consider further evaluation with ultrasound Nonobstructive left renal calyceal calculi, also previously reported Prostatomegaly Mild bladder wall thickening, could be on the basis of cystitis or bladder outlet obstruction Other findings as noted, including old ununited left fifth rib fracture, lumbar scoliosis, secondary degenerative spondylosis, small bilateral fat-containing inguinal hernias if indicated clinically, basilar pulmonary parenchymal atelectasis and scarring and fibrosis CXR: 01/24/2018 Comparison: 08/27/2017 Findings: Again demonstrated is atelectasis or scarring at both lung bases. Persistent elevation of the right hemidiaphragm. No new infiltrates. Heart size is upper limits of normal.. 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 Impression: Bibasilar atelectasis and/or scarring, similar to prior study 2017 No definite acute process otherwise Labs noted Impression: Admitted c/o Right Hip pain, Chronic Obstructive Pulmonary Disease Hypertension Hyperlipidemia Left Renal Mass Schizophrenia Previous Anemia Previous bradycardia BPH Plan: O2 for sats 90-96% PRN Duonebs Continue YARD PILOT medications Pain medications SQ Heparin Subjective ROS Limited/Unobtainable: No Allergies: Coded Allergies: FISH LIVER OIL (Verified Allergy, Mild, 09/04/08) Objective Last 24 Hour Vital Signs Date Time Temp Pulse Resp B/P (MAP) Pulse Ox O2 Delivery O2 Flow Rate FiO2 01/26/18 11:57 98.1 68 18 102/73 (83) 93 01/26/18 10:01 98.8 01/26/18 09:47 69 16 Room Air 21 01/26/18 09:30 96 119/77 01/26/18 09:00 Room Air 01/26/18 08:00 98.8 96 20 119/77 (91) 98 01/26/18 04:00 99.1 98 19 116/75 (89) 97 01/26/18 00:00 96.9 61 19 111/58 (75) 96 01/25/18 21:00 Room Air 01/25/18 20:00 70 18 Room Air 21 01/25/18 20:00 97.1 62 19 121/72 (88) 94 Intake and Output 01/25/18 01/26/18 19:00 07:00 Intake Total 1910 ml 1080 ml Output Total 1200 ml 1000 ml Balance 710 ml 80 ml Intake Oral 1000 ml 450 ml IV Total 910 ml 630 ml Output Urine Total 1200 ml 1000 ml Microbiology Date/Time Source Procedure Growth Status 01/24/18 13:30 Blood Blood Culture - Preliminary Resulted 01/24/18 13:15 Blood Blood Culture - Preliminary NO GROWTH AFTER 24 HOURS Resulted 01/24/18 16:20 Rectum Received Current Medications Medications (Trade) Dose Ordered Sig/Davey Route PRN Reason Start Time Stop Time Status Last Admin Dose Admin Acetaminophen (Tylenol) 650 mg Q4H PRN ORAL Mild Pain/Temp > 100.5 01/24/18 17:00 02/23/18 16:59 01/26/18 09:31 Acetaminophen/ Codeine Phosphate (Tylenol #3) 1 tab Q6H PRN ORAL pain 4-10 01/24/18 21:45 01/31/18 21:44 01/25/18 10:15 Albuterol Sulfate (Proventil MDI) 2 puff Q4H PRN INH Shortness of Breath 01/24/18 20:00 02/23/18 19:59 Albuterol/ Ipratropium (Albuterol/ Ipratropium) 3 ml Q4H PRN HHN SOB/congestion 01/24/18 17:00 01/29/18 16:59 Amlodipine Besylate (Norvasc) 5 mg DAILY ORAL 01/25/18 09:00 02/24/18 08:59 01/26/18 09:30 Benztropine Mesylate (Cogentin) 0.5 mg BID ORAL 01/25/18 09:00 02/24/18 08:59 01/26/18 09:30 Chlorpromazine (Thorazine) 25 mg TID ORAL 01/25/18 09:00 02/24/18 08:59 01/26/18 12:08 Clonazepam (KlonoPIN) 1 mg BID ORAL 01/25/18 09:00 02/01/18 08:59 01/26/18 09:31 Docusate Sodium (Colace) 100 mg TWICE A DAY ORAL 01/25/18 09:00 02/24/18 08:59 01/26/18 09:30 EZETIMIBE (Zetia) 10 mg DAILY ORAL 01/25/18 09:00 02/24/18 08:59 01/26/18 09:30 Finasteride (Proscar) 5 mg DAILY ORAL 01/25/18 09:00 02/24/18 08:59 01/26/18 09:29 Heparin Sodium (Porcine) (Heparin 5000 units/ml) 5,000 units EVERY 12 HOURS SUBQ 01/25/18 09:00 02/24/18 08:59 01/25/18 21:28 Ipratropium [place] (Atrovent) 17 mcg Q6HR PRN HHN sob 01/24/18 20:00 01/29/18 19:59 Loxapine Succinate (Loxitane) 50 mg TWICE A DAY ORAL 01/25/18 09:00 02/24/18 08:59 01/26/18 09:30 Pantoprazole (Protonix) 40 mg Q12HR ORAL 01/25/18 09:00 02/24/18 08:59 01/26/18 09:31 Quetiapine Fumarate (SEROquel) 300 mg BEDTIME ORAL 01/24/18 22:00 02/23/18 21:59 01/25/18 21:25 Sodium Chloride 1,000 ml @ 70 mls/hr [id number] IV 01/24/18 17:15 02/23/18 17:14 01/26/18 12:07 Tamsulosin HCl (Flomax) 0.4 mg DAILY ORAL 01/25/18 09:00 02/24/18 08:59 01/26/18 09:30 Temazepam (Restoril) 7.5 mg BEDTIME ORAL 01/24/18 21:00 01/31/18 20:59 01/25/18 21:25 Vancomycin HCl (Vanco rx to dose) 1 ea DAILY PRN MISC GRAM POSITIVE COCCI 01/26/18 13:30 02/25/18 12:44 Vancomycin HCl/ Dextrose 250 ml @ 166.667 mls/hr Q24H IVPB 01/26/18 14:00 01/31/18 13:59 01/26/18 14:14 Harshad Del Valle MD Jan 26, 2018 16:04
[2018-01-26 20:00] VITALS: BP 134/91
--- NOTE | 2018-01-26 23:45 | History and Physical Report ---
DATE OF ADMISSION: 01/24/2018 HISTORY OF PRESENT ILLNESS: The patient is admitted for hip pain, also has a history of COPD. The patient has hip pain and shortness of breath. Denies any chest pain. Denies nausea, vomiting, or diarrhea. No fever or chills. PAST MEDICAL HISTORY: History of kidney cancer, history of schizophrenia, history of gallbladder cancer, history of COPD, history of hypertension, anxiety, constipation, GERD, and BPH. PAST SURGICAL HISTORY: None. ALLERGIES: Fish oil. MEDICATIONS: Loxapine, Seroquel, Nexium, Colace, Klonopin, Cogentin, and Norvasc. SOCIAL HISTORY: History of smoking. Denies history of drug or alcohol abuse. Lives in assisted living. REVIEW OF SYSTEMS: RESPIRATORY: Shortness of breath, wheezing, and cough, worse than usual. CARDIOVASCULAR: Denies any chest pain. GASTROINTESTINAL: Denies nausea, vomiting, or diarrhea. EXTREMITIES: Does have right hip pain, 8/10. edema. CENTRAL NERVOUS SYSTEM: No change in vision or speech pattern. PHYSICAL EXAMINATION: VITAL SIGNS: Temperature 98.8, pulse 96, and blood pressure 190/77. HEENT: PERRLA. NECK: Supple. No deformity. CHEST: Bibasilar wheezing. CARDIOVASCULAR: Regular rate and rhythm. ABDOMEN: Soft, nontender, and nondistended. No organomegaly. EXTREMITIES: No edema. Reflexes are equal on both sides. Moves all four extremities. NEUROLOGIC: Generalized weakness. LABORATORY DATA: WBC of 9.8, hemoglobin 15.3, and platelets of 333. Sodium 142, potassium 4, BUN of 18, creatinine 1.1, and glucose of 136. ASSESSMENT/PLAN: 1. Chronic obstructive pulmonary disease exacerbation. 2. Hip pain. 3. Possible questionable positive blood culture. I have asked Dr. Montano, Dr. Waller, Dr. Juarez, and to see the patient for the above-mentioned diagnoses and treatment. Saida Cee M.D. DR: AUSTYN JOB#: [id number] CC:
[2018-01-27] VITALS: BP 97/55
[2018-01-27 04:00] VITALS: BP 124/70
[2018-01-27 08:00] VITALS: BP 144/85
[2018-01-27] MEDS: Docusate 100mg cap ORAL SCH ×2 (08:24→17:26)
[2018-01-27] MEDS: LOXAPINE 25 MG ORAL SCH ×2 (08:24→17:25)
[2018-01-27] MEDS: Tamsulosin 0.4mg cap ORAL SCH (08:24)
[2018-01-27] MEDS: Benztropine 1mg tab ORAL SCH ×2 (08:24→17:26)
[2018-01-27] MEDS: chlorproMAZINE 25mg tab ORAL SCH ×3 (08:25→17:26)
[2018-01-27] MEDS: Heparin 5000 units/ml inj SUBQ SCH ×2 (09:00→20:29)
[2018-01-27 12:00] VITALS: BP 139/82
--- NOTE | 2018-01-27 12:06 | General Progress Note ---
Assessment/Plan Status Narrative ASSESSMENT AND RECOMMENDATIONS #. Renal mass, potentially consistent with renal carcinoma. We will need to obtain further imaging. --> CT shows left renal solid mass --> Bladder mass history, consistent with urothelial cancer. --> CT shows mild bladder wall thickening --> consider urology eval #. Elevated PSA in the past. Most recent PSA was 10. We will need to resend along with other tumor markers. #. Anemia due to underlying chronic disease. Currently stable. #. Schizophrenia. Monitor with psychiatric team. GREATLY APPRECIATE THE CONSULTATION. Subjective Constitutional: Denies: no symptoms, chills, diaphoresis, fever, malaise, weakness, other HEENT: Denies: no symptoms, eye pain, blurred vision, tearing, double vision, ear pain, ear discharge, nose pain, nose congestion, throat pain, throat swelling, mouth pain, mouth swelling, other Cardiovascular: Denies: no symptoms, chest pain, edema, irregular heart rate, lightheadedness, palpitations, syncope, other Respiratory: Denies: no symptoms, cough, orthopnea, shortness of breath, SOB with excertion, SOB at rest, sputum, stridor, wheezing, other Genitourinary: Denies: no symptoms, burning, discharge, frequency, flank pain, hematuria, incontinence, pain, urgency, other Endocrine: Denies: no symptoms, excessive sweating, flushing, intolerance to cold, intolerance to heat, increased hunger, increased thirst, increased urine, unexplained weight gain, unexplained weight loss, other Hematologic/Lymphatic: Denies: no symptoms, anemia, easy bleeding, easy bruising, other Allergies: Coded Allergies: FISH LIVER OIL (Verified Allergy, Mild, 09/04/08) Subjective labs reviewed, no bleeding, no fevers or chills Objective Last 24 Hour Vital Signs Date Time Temp Pulse Resp B/P (MAP) Pulse Ox O2 Delivery O2 Flow Rate FiO2 01/27/18 09:00 Room Air 01/27/18 08:31 67 18 Room Air 21 01/27/18 08:25 66 144/85 01/27/18 08:00 97.5 66 18 144/85 (104) 92 01/27/18 04:00 97.0 64 16 124/70 (88) 93 01/27/18 00:00 97.3 64 17 97/55 (69) 92 01/26/18 21:00 Room Air 01/26/18 20:55 65 16 Room Air 21 01/26/18 20:00 97.2 67 18 134/91 (105) 92 01/26/18 17:33 97.1 01/26/18 16:00 97.1 61 18 111/68 (82) 94 Intake and Output 01/26/18 01/27/18 18:59 06:59 Intake Total 2033.334 ml 1270 ml Output Total 1000 ml Balance 2033.334 ml 270 ml Intake Oral 1000 ml 500 ml IV Total 1033.334 ml 770 ml Output Urine Total 1000 ml # Voids 6 2 # Bowel Movements 1 Height (Feet): 5 Height (Inches): 7.00 Weight (Pounds): 150 General Appearance: confused EENT: TMs normal Neck: normal inspection Cardiovascular: normal rate Respiratory/Chest: normal breath sounds Abdomen: no organomegaly Extremities: non-tender Edema: trace edema Neurologic: alert Skin: warm/dry Johnathan Lemons MD Jan 27, 2018 12:06
--- NOTE | 2018-01-27 12:50 | General Progress Note ---
Assessment/Plan Problem List: (1) Bradycardia ICD Codes: R00.1 - Bradycardia, unspecified SNOMED: 50101432 (2) Weakness ICD Codes: R53.1 - Weakness SNOMED: 05858431 (3) Bladder tumor ICD Codes: D49.4 - Neoplasm of unspecified behavior of bladder SNOMED: 837848061 (4) BPH (benign prostatic hyperplasia) ICD Codes: N40.0 - Enlarged prostate without lower urinary tract symptoms SNOMED: 386839098, 353231878 (5) schizophrenia (6) Hip pain ICD Codes: M25.559 - Pain in unspecified hip SNOMED: 16728063 (7) Dehydration ICD Codes: E86.0 - Dehydration SNOMED: 26893973 Status: progressing Assessment/Plan copd is improving hip pain improving afebrile no vomitting Subjective ROS Limited/Unobtainable: Yes Allergies: Coded Allergies: FISH LIVER OIL (Verified Allergy, Mild, 09/04/08) Objective Last 24 Hour Vital Signs Date Time Temp Pulse Resp B/P (MAP) Pulse Ox O2 Delivery O2 Flow Rate FiO2 01/27/18 12:00 98.0 70 19 139/82 (101) 93 01/27/18 09:00 Room Air 01/27/18 08:31 67 18 Room Air 21 01/27/18 08:25 66 144/85 01/27/18 08:00 97.5 66 18 144/85 (104) 92 01/27/18 04:00 97.0 64 16 124/70 (88) 93 01/27/18 00:00 97.3 64 17 97/55 (69) 92 01/26/18 21:00 Room Air 01/26/18 20:55 65 16 Room Air 21 01/26/18 20:00 97.2 67 18 134/91 (105) 92 01/26/18 17:33 97.1 01/26/18 16:00 97.1 61 18 111/68 (82) 94 Intake and Output 01/26/18 01/27/18 18:59 06:59 Intake Total 2033.334 ml 1270 ml Output Total 1000 ml Balance 2033.334 ml 270 ml Intake Oral 1000 ml 500 ml IV Total 1033.334 ml 770 ml Output Urine Total 1000 ml # Voids 6 2 # Bowel Movements 1 Height (Feet): 5 Height (Inches): 7.00 Weight (Pounds): 150 EENT: PERRL/EOMI Neck: supple Cardiovascular: normal rate Respiratory/Chest: lungs clear Saida Cee MD Jan 27, 2018 12:50
--- NOTE | 2018-01-27 13:19 | General Progress Note ---
Assessment/Plan Assessment/Plan (1) Lumbar DDD (2) Lumbar Spondylosis (3) Lumbar Radiculopathy (4) Scoliosis Patient to be continued on Tylenol #3 as needed. D/w Dr. Juarez and he concurred. Subjective Date patient seen: Jan 27, 2018 Time patient seen: 11:30 - am Allergies: Coded Allergies: FISH LIVER OIL (Verified Allergy, Mild, 09/04/08) Subjective REVIEW OF SYSTEMS: Denies rash, fever, chills, sweating, dizziness, drowsiness, blurred vision, sore throat, or change in weight. No shortness of breath or chest pain. No nausea, vomiting, diarrhea, or blood in the stool or urine. No bowel or bladder incontinence. No dysuria. SUBJECTIVE: Patient is in bed and reports that his pain continues to be tolerated on the Tylenol #3. Last taken on Sunday. He has no new complaints at this time. Objective Last 24 Hour Vital Signs Date Time Temp Pulse Resp B/P (MAP) Pulse Ox O2 Delivery O2 Flow Rate FiO2 01/27/18 12:00 98.0 70 19 139/82 (101) 93 01/27/18 09:00 Room Air 01/27/18 08:31 67 18 Room Air 21 01/27/18 08:25 66 144/85 01/27/18 08:00 97.5 66 18 144/85 (104) 92 01/27/18 04:00 97.0 64 16 124/70 (88) 93 01/27/18 00:00 97.3 64 17 97/55 (69) 92 01/26/18 21:00 Room Air 01/26/18 20:55 65 16 Room Air 21 01/26/18 20:00 97.2 67 18 134/91 (105) 92 01/26/18 17:33 97.1 01/26/18 16:00 97.1 61 18 111/68 (82) 94 Intake and Output 01/26/18 01/27/18 18:59 06:59 Intake Total 2033.334 ml 1270 ml Output Total 1000 ml Balance 2033.334 ml 270 ml Intake Oral 1000 ml 500 ml IV Total 1033.334 ml 770 ml Output Urine Total 1000 ml # Voids 6 2 # Bowel Movements 1 Height (Feet): 5 Height (Inches): 7.00 Weight (Pounds): 150 Objective GENERAL: Alert, awake, and oriented. LUNGS: Decreased breath sounds bilaterally. HEART: S1 and S2 regular. ABDOMEN: Soft and nontender. EXTREMITIES: No cyanosis. No clubbing. No edema. NEURO: No changes. Billy Burrell Jan 27, 2018 13:19
[2018-01-27] MEDS: Vancomycin 1250mg/D5W 250ml 250 ML IVPB SCH (13:49)
[2018-01-27 16:00] VITALS: BP 133/80
[2018-01-27] MEDS: Tylenol #3 tab (300mg/30mg) ORAL PRN (17:25)
[2018-01-27 20:00] VITALS: BP 117/74
--- NOTE | 2018-01-27 20:15 | Consultation ---
DATE OF CONSULTATION: 01/27/2018 INFECTIOUS DISEASE CONSULTATION PRIMARY ATTENDING: Saida Cee M.D. REASON FOR CONSULTATION: Bacteremia, positive blood culture with Staph aureus. HISTORY OF PRESENT ILLNESS: This is a 72-year-old white man, who is a [facility] resident, admitted on 01/24/2018 complaining of right hip pain, weakness, mild shortness of breath, and tachypnea. Denies any fever. The patient had a blood culture from the time of admission that shows Staph aureus. The second blood culture is negative. PAST MEDICAL HISTORY: Significant for COPD, hypertension, hyperlipidemia, schizophrenia, BPH. The patient has history of papillary carcinoma of bladder, had cystectomy and resection in 2014. He has history of renal mass that is in the left side, history of diverticulosis, cholelithiasis. ALLERGIES: Allergic to fish oil. MEDICATIONS: Getting vancomycin started yesterday, Flomax, Proscar, Protonix, loxapine, Colace, amlodipine, Thorazine, lithium, Augmentin, Klonopin, heparin, Tylenol No. 3, clonazepam, albuterol, sodium chloride, DuoNeb inhaler, Seroquel. SOCIAL HISTORY: Single, a [facility] resident. He is a heavy smoker. No history of alcohol, drug abuse. He has a brother, who is next of kin. REVIEW OF SYSTEMS: No fever. No chills. He has dry coughing. No chest pain. No nausea. No vomiting. No diarrhea. Pain in right lower extremity. The patient denies any problem passing urine. PHYSICAL EXAMINATION: VITAL SIGNS: Temperature 97 degrees, blood pressure is 145/85. No fever since admission. HEAD AND NECK: Slightly dry mouth. He has poor dentition. [place] conjunctiva. HEART: S1 and S2 regular. LUNGS: Clear. ABDOMEN: Soft and nontender. EXTREMITIES: He has no edema. SKIN: No ulcer. NEUROLOGIC: Awake, alert, ambulatory. LABORATORY DATA: WBC 9.8, hemoglobin 15.6, hematocrit 46.9, and platelets 333,000. Sodium 142, potassium 4, chloride 105, bicarbonate 31, BUN 18, creatinine 1.1, albumin is 3.3. The patient has a CT scan of the abdomen and pelvis, which showed cholelithiasis, colonic diverticulosis, prostatomegaly, left solid mass, suspected renal cell carcinoma. Blood culture x1 Staph aureus. Other set is negative. IMPRESSION: 1. Staphylococcus aureus bacteremia, source is unknown. 2. Left renal mass, suspected tumor. 3. Chronic obstructive pulmonary disease secondary to heavy smoking. 4. Schizophrenia. 5. Hypertension. 6. Hyperlipidemia. 7. Benign prostatic hypertrophy. RECOMMENDATIONS: Continue with vancomycin. We will follow up the cultures. Will order echocardiogram to rule out endocarditis. At the end of my exam, I thank Dr. Cee for involving me in the care of this patient. Cody Montano M.D. DR: Jordan JOB#: [id number] CC: HEAVEN
--- NOTE | 2018-01-27 21:28 | Pulmonology Progress Note ---
Assessment/Plan Assessment/Plan Pulmonary Consultation Admitted c/o Right Hip pain for 4 days, Chronic Obstructive Pulmonary Disease, previous episodes of bronchitis, Hypertension, Hyperlipidemia, Left Renal Mass, Schizophrenia, previous Anemia, previous bradycardia, BPH No h/o recent fall, half-way resident. CT Abdomen no evidence of fracture Objective: Vital Signs Noted General Appearance: WD/WN, no acute distress HEENT: normocephalic, atraumatic, anicteric, mucous membranes moist Respiratory/Chest: chest wall non-tender, lungs clear, normal breath sounds, no respiratory distress, no accessory muscle use Cardiovascular: normal peripheral pulses, normal rate, regular rhythm Abdomen: normal bowel sounds, soft, non tender, no organomegaly, non distended , no mass Extremities: no cyanosis, no clubbing, no edema Investigations: CT: Abdomen/Pelvis: Impression: Now evidence of acute bony trauma. No evidence of acute solid organ trauma. Note, however, limited evaluation for such given absence of IV contrast administration. Left renal solid mass, also previously described, suspicious for renal cell neoplasm. Comparison with the prior exam not possible due to lack of IV contrast administration on the current study Limited assessment of the GI tract, due to lack of enteric contrast administration Colonic diverticulosis Cholelithiasis. Equivocal mild gallbladder wall thickening, probably secondary to less distended gallbladder than on the prior exam but the possibility of acute cholecystitis should also be retained. Consider further evaluation with ultrasound Nonobstructive left renal calyceal calculi, also previously reported Prostatomegaly Mild bladder wall thickening, could be on the basis of cystitis or bladder outlet obstruction Other findings as noted, including old ununited left fifth rib fracture, lumbar scoliosis, secondary degenerative spondylosis, small bilateral fat-containing inguinal hernias if indicated clinically, basilar pulmonary parenchymal atelectasis and scarring and fibrosis CXR: 01/24/2018 Comparison: 08/27/2017 Findings: Again demonstrated is atelectasis or scarring at both lung bases. Persistent elevation of the right hemidiaphragm. No new infiltrates. Heart size is upper limits of normal.. 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 Pain medications SQ Heparin Subjective ROS Limited/Unobtainable: No Allergies: Coded Allergies: FISH LIVER OIL (Verified Allergy, Mild, 09/04/08) Objective Last 24 Hour Vital Signs Date Time Temp Pulse Resp B/P (MAP) Pulse Ox O2 Delivery O2 Flow Rate FiO2 01/27/18 16:00 97.8 73 20 133/80 (97) 95 01/27/18 12:00 98.0 70 19 139/82 (101) 93 01/27/18 09:00 Room Air 01/27/18 08:31 67 18 Room Air 21 01/27/18 08:25 66 144/85 01/27/18 08:00 97.5 66 18 144/85 (104) 92 01/27/18 04:00 97.0 64 16 124/70 (88) 93 01/27/18 00:00 97.3 64 17 97/55 (69) 92 Intake and Output 01/26/18 01/27/18 19:00 07:00 Intake Total 2033.334 ml 1270 ml Output Total 1000 ml Balance 2033.334 ml 270 ml Intake Oral 1000 ml 500 ml IV Total 1033.334 ml 770 ml Output Urine Total 1000 ml # Voids 6 2 # Bowel Movements 1 Microbiology Date/Time Source Procedure Growth Status 01/25/18 16:30 Rectum - Final NO CARBAPENEM-RESISTANT ENTEROBACTERI... Complete Laboratory Tests 01/27/18 14:50: Carcinoembryonic Antigen [Pending], Prostate Specific Antigen 2.83 Current Medications Medications (Trade) Dose Ordered Sig/Davey Route PRN Reason Start Time Stop Time Status Last Admin Dose Admin Acetaminophen (Tylenol) 650 mg Q4H PRN ORAL Mild Pain/Temp > 100.5 01/24/18 17:00 02/23/18 16:59 01/26/18 17:03 Acetaminophen/ Codeine Phosphate (Tylenol #3) 1 tab Q6H PRN ORAL pain 4-10 01/24/18 21:45 01/31/18 21:44 01/27/18 17:25 Albuterol Sulfate (Proventil MDI) 2 puff Q4H PRN INH Shortness of Breath 01/24/18 20:00 02/23/18 19:59 Albuterol/ Ipratropium (Albuterol/ Ipratropium) 3 ml Q4H PRN HHN SOB/congestion 01/24/18 17:00 01/29/18 16:59 Amlodipine Besylate (Norvasc) 5 mg DAILY ORAL 01/25/18 09:00 02/24/18 08:59 01/27/18 08:25 Benztropine Mesylate (Cogentin) 0.5 mg BID ORAL 01/25/18 09:00 02/24/18 08:59 01/27/18 17:26 Chlorpromazine (Thorazine) 25 mg TID ORAL 01/25/18 09:00 02/24/18 08:59 01/27/18 17:26 Clonazepam (KlonoPIN) 1 mg BID ORAL 01/25/18 09:00 02/01/18 08:59 01/27/18 17:26 Docusate Sodium (Colace) 100 mg TWICE A DAY ORAL 01/25/18 09:00 02/24/18 08:59 01/27/18 17:26 EZETIMIBE (Zetia) 10 mg DAILY ORAL 01/25/18 09:00 02/24/18 08:59 01/27/18 08:25 Finasteride (Proscar) 5 mg DAILY ORAL 01/25/18 09:00 02/24/18 08:59 01/27/18 08:25 Heparin Sodium (Porcine) (Heparin 5000 units/ml) 5,000 units EVERY 12 HOURS SUBQ 01/25/18 09:00 02/24/18 08:59 01/27/18 20:29 Ipratropium [place] (Atrovent) 17 mcg Q6HR PRN HHN sob 01/24/18 20:00 01/29/18 19:59 Loxapine Succinate (Loxitane) 50 mg TWICE A DAY ORAL 01/25/18 09:00 02/24/18 08:59 01/27/18 17:25 Pantoprazole (Protonix) 40 mg Q12HR ORAL 01/25/18 09:00 02/24/18 08:59 01/27/18 20:23 Quetiapine Fumarate (SEROquel) 300 mg BEDTIME ORAL 01/24/18 22:00 02/23/18 21:59 01/27/18 20:23 Sodium Chloride 1,000 ml @ 70 mls/hr [id number] IV 01/24/18 17:15 02/23/18 17:14 01/27/18 04:52 Tamsulosin HCl (Flomax) 0.4 mg DAILY ORAL 01/25/18 09:00 02/24/18 08:59 01/27/18 08:24 Temazepam (Restoril) 7.5 mg BEDTIME ORAL 01/24/18 21:00 01/31/18 20:59 01/27/18 20:23 Vancomycin HCl (Vanco rx to dose) 1 ea DAILY PRN MISC GRAM POSITIVE COCCI 01/26/18 13:30 02/25/18 12:44 Vancomycin HCl/ Dextrose 250 ml @ 166.667 mls/hr Q24H IVPB 01/26/18 14:00 01/31/18 13:59 01/27/18 13:49 Harshad Del Valle MD Jan 27, 2018 21:28
[2018-01-28] VITALS: BP 97/59
[2018-01-28 04:00] VITALS: BP 113/73
[2018-01-28 07:59] VITALS: BP 113/67
--- NOTE | 2018-01-28 08:41 | General Progress Note ---
Assessment/Plan Assessment/Plan (1) Lumbar DDD (2) Lumbar Spondylosis (3) Lumbar Radiculopathy (4) Scoliosis Patient to be continued on Tylenol #3 as needed. D/w Dr. Juarez and he concurred. Subjective Date patient seen: Jan 28, 2018 Time patient seen: 07:00 - am Allergies: Coded Allergies: FISH LIVER OIL (Verified Allergy, Mild, 09/04/08) Subjective REVIEW OF SYSTEMS: Denies rash, fever, chills, sweating, dizziness, drowsiness, blurred vision, sore throat, or change in weight. No shortness of breath or chest pain. No nausea, vomiting, diarrhea, or blood in the stool or urine. No bowel or bladder incontinence. No dysuria. SUBJECTIVE: Patient is in bed shows no signs of pain or distress. Objective Last 24 Hour Vital Signs Date Time Temp Pulse Resp B/P (MAP) Pulse Ox O2 Delivery O2 Flow Rate FiO2 01/28/18 07:59 97.2 65 16 113/67 (82) 99 01/28/18 04:00 97.5 61 19 113/73 (86) 97 01/28/18 00:00 96.9 97/59 (72) 01/27/18 21:53 64 18 Room Air 21 01/27/18 21:00 Room Air 01/27/18 20:00 97.8 66 16 117/74 (88) 94 01/27/18 16:00 97.8 73 20 133/80 (97) 95 01/27/18 12:00 98.0 70 19 139/82 (101) 93 01/27/18 09:00 Room Air Intake and Output 01/27/18 01/28/18 19:00 07:00 Intake Total 850 ml 480 ml Output Total 1000 ml Balance 850 ml -520 ml Intake Oral 850 ml 480 ml Output Urine Total 1000 ml # Voids 4 Laboratory Tests 01/27/18 14:50: Carcinoembryonic Antigen [Pending], Prostate Specific Antigen 2.83 Height (Feet): 5 Height (Inches): 7.00 Weight (Pounds): 150 Objective GENERAL: Alert, awake, and oriented. LUNGS: Decreased breath sounds bilaterally. HEART: S1 and S2 regular. ABDOMEN: Soft and nontender. EXTREMITIES: No cyanosis. No clubbing. No edema. NEURO: No changes. Billy Burrell Jan 28, 2018 08:41
[2018-01-28] MEDS: Docusate 100mg cap ORAL SCH (09:00)
[2018-01-28] MEDS: Heparin 5000 units/ml inj SUBQ SCH (09:00)
[2018-01-28] MEDS: Benztropine 1mg tab ORAL SCH (09:22)
[2018-01-28] MEDS: LOXAPINE 25 MG ORAL SCH (09:22)
[2018-01-28] MEDS: Tamsulosin 0.4mg cap ORAL SCH (09:22)
[2018-01-28] MEDS: chlorproMAZINE 25mg tab ORAL SCH ×2 (09:22→13:41)
[2018-01-28] MEDS: Tylenol #3 tab (300mg/30mg) ORAL PRN (09:26)
[2018-01-28 11:54] VITALS: BP 118/70
--- NOTE | 2018-01-28 13:25 | Infectious Diseases Prog Note ---
Assessment/Plan Assessment/Plan A; 1. Staphylococcus aureus ( MSSA) bacteremia, source is unknown. 2. Left renal mass, suspected tumor. 3. Chronic obstructive pulmonary disease secondary to heavy smoking. 4. Schizophrenia. 5. Hypertension. 6. Hyperlipidemia. 7. Benign prostatic hypertrophy. P; patient refuses labs & IV medications Start on PO Levaquin , continue X 10 days Subjective ROS Limited/Unobtainable: No Constitutional: Reports: no symptoms Respiratory: Reports: no symptoms Cardiovascular: Reports: no symptoms Gastrointestinal/Abdominal: Reports: no symptoms Genitourinary: Reports: no symptoms Musculoskeletal: Reports: no symptoms Allergies: Coded Allergies: FISH LIVER OIL (Verified Allergy, Mild, 09/04/08) Objective Vital Signs Last 24 Hour Vital Signs Date Time Temp Pulse Resp B/P (MAP) Pulse Ox O2 Delivery O2 Flow Rate FiO2 01/28/18 11:54 97.6 70 16 118/70 (86) 98 01/28/18 09:00 Room Air 01/28/18 09:00 65 113/67 01/28/18 07:59 97.2 65 16 113/67 (82) 99 01/28/18 04:00 97.5 61 19 113/73 (86) 97 01/28/18 00:00 96.9 97/59 (72) 01/27/18 21:53 64 18 Room Air 21 01/27/18 21:00 Room Air 01/27/18 20:00 97.8 66 16 117/74 (88) 94 01/27/18 16:00 97.8 73 20 133/80 (97) 95 Height (Feet): 5 Height (Inches): 7.00 Weight (Pounds): 150 HEENT: mucous membranes moist Respiratory/Chest: lungs clear Cardiovascular: normal rate Abdomen: soft, non tender Extremities: no edema Neurologic/Psychiatric: alert, responsive Microbiology Date/Time Source Procedure Growth Status 01/25/18 16:30 Rectum - Final NO CARBAPENEM-RESISTANT ENTEROBACTERI... Complete Laboratory Tests Test 01/27/18 14:50 Carcinoembryonic Antigen Pending Prostate Specific Antigen 2.83 ng/mL (0.13-4.0) Current Medications Medications (Trade) Dose Ordered Sig/Davey Route PRN Reason Start Time Stop Time Status Last Admin Dose Admin Acetaminophen (Tylenol) 650 mg Q4H PRN ORAL Mild Pain/Temp > 100.5 01/24/18 17:00 02/23/18 16:59 01/26/18 17:03 Acetaminophen/ Codeine Phosphate (Tylenol #3) 1 tab Q6H PRN ORAL pain 4-10 01/24/18 21:45 01/31/18 21:44 01/28/18 09:26 Albuterol Sulfate (Proventil MDI) 2 puff Q4H PRN INH Shortness of Breath 01/24/18 20:00 02/23/18 19:59 Albuterol/ Ipratropium (Albuterol/ Ipratropium) 3 ml Q4H PRN HHN SOB/congestion 01/24/18 17:00 01/29/18 16:59 Amlodipine Besylate (Norvasc) 5 mg DAILY ORAL 01/25/18 09:00 02/24/18 08:59 01/27/18 08:25 Benztropine Mesylate (Cogentin) 0.5 mg BID ORAL 01/25/18 09:00 02/24/18 08:59 01/28/18 09:22 Chlorpromazine (Thorazine) 25 mg TID ORAL 01/25/18 09:00 02/24/18 08:59 01/28/18 09:22 Clonazepam (KlonoPIN) 1 mg BID ORAL 01/25/18 09:00 02/01/18 08:59 01/28/18 09:22 Docusate Sodium (Colace) 100 mg TWICE A DAY ORAL 01/25/18 09:00 02/24/18 08:59 01/27/18 17:26 EZETIMIBE (Zetia) 10 mg DAILY ORAL 01/25/18 09:00 02/24/18 08:59 01/28/18 09:22 Finasteride (Proscar) 5 mg DAILY ORAL 01/25/18 09:00 02/24/18 08:59 01/28/18 09:22 Heparin Sodium (Porcine) (Heparin 5000 units/ml) 5,000 units EVERY 12 HOURS SUBQ 01/25/18 09:00 02/24/18 08:59 01/27/18 20:29 Ipratropium [place] (Atrovent) 17 mcg Q6HR PRN HHN sob 01/24/18 20:00 01/29/18 19:59 Loxapine Succinate (Loxitane) 50 mg TWICE A DAY ORAL 01/25/18 09:00 02/24/18 08:59 01/28/18 09:22 Pantoprazole (Protonix) 40 mg Q12HR ORAL 01/25/18 09:00 02/24/18 08:59 01/28/18 09:22 Quetiapine Fumarate (SEROquel) 300 mg BEDTIME ORAL 01/24/18 22:00 02/23/18 21:59 01/27/18 20:23 Sodium Chloride 1,000 ml @ 70 mls/hr [id number] IV 01/24/18 17:15 02/23/18 17:14 01/27/18 04:52 Tamsulosin HCl (Flomax) 0.4 mg DAILY ORAL 01/25/18 09:00 02/24/18 08:59 01/28/18 09:22 Temazepam (Restoril) 7.5 mg BEDTIME ORAL 01/24/18 21:00 01/31/18 20:59 01/27/18 20:23 Vancomycin HCl (Vanco rx to dose) 1 ea DAILY PRN MISC GRAM POSITIVE COCCI 01/26/18 13:30 02/25/18 12:44 Vancomycin HCl/ Dextrose 250 ml @ 166.667 mls/hr Q24H IVPB 01/26/18 14:00 01/31/18 13:59 01/27/18 13:49 Cody Montano MD Jan 28, 2018 13:25
[2018-01-28] MEDS ORDERED: LEVAQUIN750 MG ORAL (13:30)
[2018-01-28] MEDS: Vancomycin 1250mg/D5W 250ml 250 ML IVPB SCH (14:00)
[2018-01-28] MEDS ORDERED: VANCOMYCIN1 GM IV (15:12)
[2018-01-28] MEDS ORDERED: VANCOMYCIN2 GM/5001 IV (15:15)
--- NOTE | 2018-01-28 15:34 | General Progress Note ---
Assessment/Plan Problem List: (1) Bradycardia ICD Codes: R00.1 - Bradycardia, unspecified SNOMED: 21249203 (2) Weakness ICD Codes: R53.1 - Weakness SNOMED: 83502612 (3) Bladder tumor ICD Codes: D49.4 - Neoplasm of unspecified behavior of bladder SNOMED: 395460200 (4) BPH (benign prostatic hyperplasia) ICD Codes: N40.0 - Enlarged prostate without lower urinary tract symptoms SNOMED: 263899638, 733125896 (5) schizophrenia (6) Hip pain ICD Codes: M25.559 - Pain in unspecified hip SNOMED: 18420825 (7) Dehydration ICD Codes: E86.0 - Dehydration SNOMED: 73402006 Status: progressing Assessment/Plan sepsis positive blood cx goingto snf for 10 days of iv abx for sepsis and repeat blood cx dc to snf today copd is improving hip pain improving afebrile no vomitting Subjective ROS Limited/Unobtainable: Yes Allergies: Coded Allergies: FISH LIVER OIL (Verified Allergy, Mild, 09/04/08) Objective Last 24 Hour Vital Signs Date Time Temp Pulse Resp B/P (MAP) Pulse Ox O2 Delivery O2 Flow Rate FiO2 01/28/18 11:54 97.6 70 16 118/70 (86) 98 01/28/18 09:00 Room Air 01/28/18 09:00 65 113/67 01/28/18 07:59 97.2 65 16 113/67 (82) 99 01/28/18 04:00 97.5 61 19 113/73 (86) 97 01/28/18 00:00 96.9 97/59 (72) 01/27/18 21:53 64 18 Room Air 21 01/27/18 21:00 Room Air 01/27/18 20:00 97.8 66 16 117/74 (88) 94 01/27/18 16:00 97.8 73 20 133/80 (97) 95 Intake and Output 01/27/18 01/28/18 18:59 06:59 Intake Total 850 ml 480 ml Output Total 1000 ml Balance 850 ml -520 ml Intake Oral 850 ml 480 ml Output Urine Total 1000 ml # Voids 4 Height (Feet): 5 Height (Inches): 7.00 Weight (Pounds): 150 Neck: supple Cardiovascular: normal rate Respiratory/Chest: lungs clear Abdomen: soft Hadadz,Ali MD Jan 28, 2018 15:34
--- NOTE | 2018-01-29 14:24 | Cardiology Report ---
APPROVED REPORT EXAM: Two-dimensional and M-mode echocardiogram with Doppler and color Doppler. INDICATION ENDOCARDITIS M-Mode DIMENSIONS IVSd1.8 (0.7-1.1cm)Left Atrium (MM)3.4 (1.6-4.0cm) LVDd4.5 (3.5-5.6cm)Aortic Root4.6 (2.0-3.7cm) PWd1.4 (0.7-1.1cm)Aortic Cusp Exc.1.7 (1.5-2.0cm) IVSs2.1 cm LVDs3.2 (2.5-4.0cm) PWs1.6 cm Technically difficult study due to poor acoustical windows. Normal left ventricular chamber size, systolic function and wall motion to extent visualized. Left ventricular ejection fraction estimated to be 55 %. Study quality precludes accurate assessment of regional wall motion. Mild left ventricular hypertrophy. No evidence of pericardial effusion. All other cardiac chamber sizes are within normal limits. Focal aortic valve sclerosis with adequate cusp excursion. Mildly thickened mitral valve leaflets with normal excursion. Mitral annulus and aortic root calcification. Pulmonic valve structure not well visualized . Normal tricuspid valve structure. IVC in normal size with physiologic collapse . A color flow and spectral Doppler study was performed and revealed: No aortic regurgitation. Trace mitral regurgitation. Normal left ventricular diastolic function. Mild tricuspid regurgitation. Tricuspid systolic velocities suggests peak right ventricular systolic pressure of 18 mmHg,consistent with moderate pulmonary hypertension .
--- NOTE | 2018-01-30 07:54 | Discharge Summary ---
Discharge Summary Discharge Summary _ DATE OF ADMISSION: 01/24/2018 DATE OF DISCHARGE: 2017 DISCHARGED BY: REASON FOR ADMISSION: 72 years old male with past medical history of hypertension, hyperlipidemia, COPD, BPH, schizophrenia, presented with complaints of generalized weakness and right-sided hip pain. He denied chest pain . He denied vomiting or diarrhea. He denied dysuria. He denied recent trauma or fall. On evaluation patient appeared to be mildly tachypneic and short of breath. Patient required placement on nasal oxygen 4 L via nasal cannula with pulse oximetry reaching 97%. Laboratory workup revealed no leukocytosis, stable hemoglobin and hematocrit. Troponin negative. EKG revealed normal sinus rhythm , no acute ischemic changes. BUN 18 creatinine 1.1 , sodium 142. Urinalysis was positive for leukocyte esterase , but no pyuria and occasional bacteria. Chest x-ray revealed bibasilar atelectasis and/or scaring similar to previous study. No definite acute cardiopulmonary process otherwise. Abdominal pelvis CT revealed no evidence of acute bony trauma. Left renal solid mass suspicious for renal cell neoplasm , previously described, noted. Colonic diverticulosis. Cholelithiasis. Hepatomegaly. Nonobstructing left renal calyceal calculi previously described. Patient admitted with diagnosis of right hip pain, dehydration , COPD with possible exacerbation, schizophrenia. CONSULTANTS: pulmonary Dr. Del Valle ID specialist Dr. Barkley survey rodman/oncologist Dr. Lemons psychiatrist pain specialist Dr. Juarez [facility] COURSE: Patient admitted and started on IV hydration. Renal parameters and electrolytes were closely monitored, electrolytes corrected as needed, and nephrotoxins were avoided. Bank President closely followed. Supplemental oxygen provided as needed to keep pulse oximetry above 92%. Nebulizing treatments with DuoNeb provided as needed. DVT prophylaxis with heparin provided. Venous Doppler of bilateral lower extremity revealed no evidence of acute DVT. Echocardiogram revealed preserved ejection fraction 55%. No wall motion abnormalities to the extent visualized. Blood pressure was managed with calcium channel curly, stable. Zetia continued. ID specialist closely followed. Blood culture revealed Staphylococcus aureus methicillin susceptible 02/15, source was unknown. Patient refused labs and IV medications. Patient was afebrile, no leukocytosis. Patient started on oral Levaquin, and to be continued for 10 days. Oncologist followed. Patient had left renal mass on imaging, potentially consistent with renal carcinoma. Further workup needed to diagnose. Patient had a history of bladder mass consistent with urothelial cancer. Consider urology evaluation as outpatient. PSA and CEA were within normal limits. Proscar and Flomax were continued. Pain specialist followed. Patient with a history of lumbar degenerative joint disease, lumbar spondylosis and lumbar radiculopathy. Pain management was addressed ,and pain was controlled. Psychiatrist followed for management of schizophrenia. Psychiatric medication regimen was optimized. Reality orientation and supportive therapy provided. Patient refused labs draw and IV medication. Patient was discharged to custodial faciltiy, follow-up with urologist to be arranged. FINAL DIAGNOSES: MSSA bacteremia , source unknown COPD Left renal mass suspicious for renal carcinoma Dehydration Hypertension Hyperlipidemia Schizophrenia BPH Lumbar DDD Lumbar spondylosis Lumbar radiculopathy Scoliosis DISCHARGE MEDICATIONS: See Medication Reconciliation list. DISCHARGE INSTRUCTIONS: Patient was discharged to the custodial facility. Follow up with medical doctor at the facility. I have been assigned to dictate discharge summary for this account. I was not involved in the patient's management. Shauna Fitzgerald NP Jan 30, 2018 07:53
== END 2018-01-28 15:15 | DRG 556 ==
LOC: EDBD 12:54 → EDBEDREQ 13:07 → EMR 13:27 → 4E 13:42 → EDBEDREQ 14:23
DX: M25.551 Pain in right hip (principal); J44.1 Chronic obstructive pulmonary disease with (acute) exacerbation; R78.81 Bacteremia; C64.2 Malignant neoplasm of left kidney, except renal pelvis; F20.0 Paranoid schizophrenia; E86.0 Dehydration; A49.01 Methicillin susceptible Staphylococcus aureus infection, unspecified site; M47.896 Other spondylosis, lumbar region; M54.16 Radiculopathy, lumbar region; I10 Essential (primary) hypertension; E78.5 Hyperlipidemia, unspecified; N40.0 Benign prostatic hyperplasia without lower urinary tract symptoms; M41.9 Scoliosis, unspecified; K21.9 Gastro-esophageal reflux disease without esophagitis; Z85.89 Personal history of malignant neoplasm of other organs and systems; D63.8 Anemia in other chronic diseases classified elsewhere; Z87.891 Personal history of nicotine dependence; K80.80 Other cholelithiasis without obstruction; Z88.8 Allergy status to other drugs, medicaments and biological substances
CPT/HCPCS: 36415; 71045; 74176; 80053; 81003; 82378; 82550; 82553; 83690; 84153; 84484; 85025; 87040; 87081; 87181; 93005; 93306; 93970; 94664; 96365; 99285